=== PATIENT | female | born 1950 | race Caucasian/White ===

== ENCOUNTER 2022-05-12 12:30 | Outpatient (RCR) | payer MEDICARE, SELFPAY ==
--- NOTE | 2022-05-09 13:30 | PTOPEVAL ---
PHYSICAL THERAPY EVALUATION AND PLAN OF CARE 05-09-22 Thank you for referring Micki Bean to [facility] for the diagnosis of back pain. Leelee is scheduled to be seen for therapy? 0-2 x/week for 5 weeks. She is having L THR next week, so therapy will be on hold after surgery, until the surgeon releases her to return to therapy. Please review, sign, date and return this plan of care VIOLA. I agree with and certify that the following plan of care is medically necessary. Referring Physician Date Attending Provider: Ernie Garcia MD Past Medical History Source of Past Medical History Patient Neurological History Hx Neurological Disorders No Significant History Cardiovascular History Hx Hypertension Yes: meds Respiratory History Hx Chronic Obstructive Pulmonary Disease Yes: inhaler (COPD) Gastrointestinal History Hx Gastrointestinal Disorders No Significant History Genitourinary History Hx Genitourinary Disorders No Significant History Musculoskeletal History Hx Back Pain Yes Hx Orthopedic Surgery Yes: R THR Hx Other Musculoskeletal Disorders Yes: to have L THR next week Endocrine History Hx Endocrine Disorders No Significant History Reproductive History Hx Section Yes: x 5 Evaluation Information Diagnosis back pain Onset 2009 Subjective Information gradual increase in pain in Query Text:As Reported By Patient/ back, history of about 20 yr Family of back pain; have had injections in back; have had multiple MRIs; have had surgical consult, was not a surgical candidate; have been through pain management; previously had PT treatment, nothing really helped, but has never had water exercises; is to have L THR next week; Diagnostic Tests MRI For This Problem Yes: arthritis, curvature, protruding disc per pt Prior Level of Function Home Setting Living Situation With Spouse Mobility Assistive Devices (Used Last 3 None,Cane Months) Comments Additional Prior Level of Function difficulty with lifting at Comments home and tying shoes- due to hip pain L; is indep with bathing, dressing, home tasks, except heavy lifting; is doing HEP for legs- supine, standing from pre op for THR; Pain Assessment Pain Scale Pain Scale Used Numeric (1 - 10) Self Report Pain Assessment Bilateral Back Reporte
== END 2022-08-03 13:35 | disposition home or self-care (01) ==
LOC: ANHPT 12:30
DX: M54.16 Radiculopathy, lumbar region (principal)
CPT/HCPCS: 97113; 97162

== ENCOUNTER → 2022-06-16 11:34 | Outpatient (CLI) | payer MEDICARE, SELFPAY ==
--- NOTE | ~2022-06-16 | MM_ITS ---
EXAMINATION: MM screening aamir BI w harry HISTORY: Screening TECHNIQUE: Craniocaudal and mediolateral oblique 3-D tomosynthesis images were obtained and synthetic 2-D images were generated. CAD analysis was submitted and interpreted. COMPARISON: No prior mammogram is available for comparison at this institution. BREAST PARENCHYMAL COMPOSITION: Breast composed of scattered areas of fibroglandular density FINDINGS: There are small bilateral nodules which are low density in the upper outer quadrant of the right breast and upper central aspect of the left breast. There are no suspicious calcifications or a rchitectural distortion. IMPRESSION: 1. Small bilateral low-density masses. 2. Recommend comparison to previous outside mammograms. BI-RADS Category 0: Incomplete: Needs additional imaging evaluation. Reviewed, dictated and finalized at location A.
== END ==
PROVIDERS: PCP Obstetrics & Gynecology; Visit Provider Obstetrics & Gynecology
DX: Z12.31 Encounter for screening mammogram for malignant neoplasm of breast (principal); R92.8 Other abnormal and inconclusive findings on diagnostic imaging of breast
CPT/HCPCS: 77063; 77067

== ENCOUNTER 2023-04-04 16:27 | Emergency (ER) | payer MEDICARE, SELFPAY ==
[2023-04-04 16:29] VITALS: BP 102/80; PULSE 74; RESP 18; TEMP 36.2; O2SAT 97
--- NOTE | 2023-04-04 16:37 | ED.LOWEXIN ---
HPI - Extremity Injury (Lower) General Chief Complaint: Extremity Problem,Nontraumatic Stated Complaint: TOE PAIN Time Seen by Provider: 04/04/23 16:40 Source: patient Mode of arrival: ambulatory Limitations: no limitations History of Present Illness HPI Narrative: 73 y/o female presented for c/o right 2nd toe pain for 6 days. Denies injury, redness, or swelling. Pain started about 4 days after attending a wedding and wearing wedge heeled shoes for several hours and dancing. Taking ibuprofen 800mg BID for the pain, she usually takes it daily for chronic back pain. Denies numbness, tingling or weakness. Pain is worse when walking, rates 6/10, minimal pain at rest or with touching the toe. Related Data Home Medications Medication Instructions Recorded Confirmed albuterol sulfate 90 mcg/actuation 2 inh inhalation DIRECTED 04/04/23 04/04/23 aerosol inhaler atorvastatin 40 mg tablet 40 mg PO DIRECTED 04/04/23 04/04/23 estradiol 0.025 mg/24 hr weekly 1 patch topical WEEKLY 04/04/23 04/04/23 transdermal patch fluticasone 250 mcg-salmeterol 50 1 inh inhalation BID 04/04/23 04/04/23 mcg/dose blistr powdr for inhalation (Wixela Inhub) ibuprofen 800 mg tablet 800 mg PO TID 04/04/23 04/04/23 irbesartan 150 1 tablet PO DAILY 04/04/23 04/04/23 mg-hydrochlorothiazide 12.5 mg tablet latanoprost 0.005 % eye drops 1 drp EACH EYE HS 04/04/23 04/04/23 Allergies Allergy/AdvReac Type Severity Reaction Status Date / Time No Known Allergies Allergy Verified 04/04/23 16:41 Review of Systems Review of Systems: CONSTITUTIONAL: Denies body aches, fever, chills ENT: Denies rhinorrhea, congestion CARDIOVASCULAR: Denies chest pain, palpitations, or edema. RESPIRATORY: Denies cough or dyspnea. SKIN: Denies rash, itching, or wounds. MUSCULOSKELETAL: per HPI. NEUROLOGIC: Denies headache, numbness, tingling, or weakness. All systems reviewed & are unremarkable except as noted in HPI and below PMFSH Past Medical History Medical History (Updated 04/04/23 @ 16:54 by Azalea Nicole, LAURA) Chronic back pain COPD (chronic obstructive pulmonary disease) Hypertension Comments At time of signature, I have reviewed and agree with nursing past medical, surgical, social and family history unless otherwise noted. Please see nursing chart for further information. There is no relevant family history pertinent to the presenting complaint Exam Narrative: GENERAL: Well-appearing, well-nourished, and in no acute distress. HEAD: Normocephalic, atraumatic. EYES: PERRLA, conjunctivae clear NECK: Supple. CHEST: Speaks in full sentences. No respiratory distress. HEART: Regular rate and rhythm. Normal and equal peripheral pulses. EXTREMITIES: Right foot has normal strength and sensation, normal range of motion. Pain illicted to base of 2nd toe proximal phalanx with walking, mild pain with palpation of the prox phalanx. No swelling, erythema, or ecchymosis, No open wounds. Mild medial deformity to 2nd toe which appears chronic; No DIP/PIP tenderness. Pulse palpable and equal bilaterally, skin warm, dry, pink. Capillary refill less than 3 seconds. SKIN: Warm, dry, no rash. NEURO: Alert and oriented x3. PSYCH: Normal mood and affect Course Course Emergency Course: Patient is aware of diagnosis, understands and agrees to treatment plan. Anticipatory guidance given. Patient agrees to follow-up as directed and is aware of reasons to seek care at the emergency department. Portions of this record may have been created with voice recognition software Level of Care: Express Care Visit Vital Signs Vital signs: Vital Signs Temperature 97.2 F L 04/04/23 16:29 Pulse Rate 74 04/04/23 16:29 Respiratory Rate 18 04/04/23 16:29 Blood Pressure 102/80 04/04/23 16:29 Pulse Oximetry 97 04/04/23 16:29 Oxygen Delivery Room Air 04/04/23 16:29 Temperature 97.2 F L 04/04/23 16:29 Pulse Rate 74 04/04/23 16
== END 2023-04-04 17:06 | disposition home or self-care (01) ==
PROVIDERS: Emergency Provider Nurse Practitioner Family
DX: M79.674 Pain in right toe(s) (principal); J44.9 Chronic obstructive pulmonary disease, unspecified; I10 Essential (primary) hypertension
CPT/HCPCS: 99212; G0463

== ENCOUNTER 2023-09-06 14:23 | Emergency (ER) | payer MEDICARE, SELFPAY ==
--- NOTE | 2023-09-06 14:25 | ED.GENADULT ---
HPI - General Adult General Chief complaint: Abdominal Pain Stated complaint: LOW ABD PAIN Time Seen by Provider: 09/06/23 14:34 Source: patient, RN notes reviewed and old records reviewed Mode of arrival: ambulatory Limitations: no limitations History of Present Illness HPI narrative: 73-year-old female presents to the [facility] with complaints of lower abdominal pain that started yesterday. 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 Patient reports he thought the pain was from constipation but pain has not changed since having her bowel movement. Denies any urinary symptoms. No frequency, urgency or burning of urination. Denies fevers Surgical history includes hysterectomy, 5 C sections. Onset (ago): day(s) (1) Treatments prior to arrival: other (Suppository) Related Data Home Medications Medication Instructions Recorded Confirmed albuterol sulfate 90 mcg/actuation 2 inh inhalation DIRECTED 04/04/23 09/06/23 aerosol inhaler atorvastatin 40 mg tablet 40 mg PO DIRECTED 04/04/23 09/06/23 estradiol 0.025 mg/24 hr weekly 1 patch topical WEEKLY 04/04/23 09/06/23 transdermal patch fluticasone 250 mcg-salmeterol 50 1 inh inhalation BID 04/04/23 09/06/23 mcg/dose blistr powdr for inhalation (Wixela Inhub) ibuprofen 800 mg tablet 800 mg PO TID 04/04/23 09/06/23 irbesartan 150 1 tablet PO DAILY 04/04/23 09/06/23 mg-hydrochlorothiazide 12.5 mg tablet latanoprost 0.005 % eye drops 1 drp EACH EYE HS 04/04/23 09/06/23 Allergies Allergy/AdvReac Type Severity Reaction Status Date / Time No Known Allergies Allergy Verified 09/06/23 14:29 Review of Systems Review of Systems: All systems reviewed & are unremarkable except as noted in HPI and below Constitutional: Constitutional: Reports no additional constitutional complaints Eyes: Eyes: Reports no additional eye complaints ENT: Reports system reviewed and no additional complaints, except as documented Cardiovascular: Cardiovascular: Reports no additional cardiovascular complaints, Denies chest pain and Denies dyspnea Respiratory: Respiratory: Reports no additional respiratory complaints, Denies chest congestion, Denies cough and Denies dyspnea Gastrointestinal: Gastrointestinal: Reports as per HPI, Reports abdominal pain, Denies diarrhea, Reports nausea and Denies vomiting Musculoskeletal: Musculoskeletal: Reports no additional musculoskeletal complaints Integumentary/Breasts: Skin/Breast: Reports system reviewed and no additional complaints, except as docu Neurologic: Reports system reviewed and no additional complaints, except as documented Psychiatric: Psychiatric: Reports no additional psychiatric complaints Allergic/Immunologic: Allergic/Immunologic: Reports no additional allergic/immunologic complaints PMFSH Past Medical History Medical History (Updated 09/06/23 @ 16:57 by Aggie Murillo APRN) Chronic back pain COPD (chronic obstructive pulmonary disease) Hypertension Surgical History Surgical History (Updated 09/06/23 @ 14:43 by Aggie Murillo APRN) H/O total hysterectomy History of Social History Social History (Updated 09/06/23 @ 14:43 by Aggie Murillo APRN) Gender identity (if verbalized by the patient): Female Comments At the time of my signature, I reviewed and agree with the nursing past medical, surgical, social, and family history. There is no relevant family history pertinent to the patient complaint. Exam Const: General: cooperative, healthy appearing, no acute distress, well developed, alert, uncomfortable and well nourished Nutritional Appearance: well nourished Orientation/consciousness: patient oriented x3 Limitations: no limitations HENMT: Head: normal to inspection Ears: hearing grossly normal bilaterally and external ears normal Face/Nose/Sinus: Normal external nose present, Normal nares present, Normal nasal mucous membranes and turbina
[2023-09-06 14:39] VITALS: BP 110/81; PULSE 72; RESP 16; TEMP 36.8; O2SAT 100
== END 2023-09-06 14:49 | disposition short-term general hospital (02) ==
PROVIDERS: Emergency Provider Nurse Practitioner
DX: R10.30 Lower abdominal pain, unspecified (principal); J44.9 Chronic obstructive pulmonary disease, unspecified; I10 Essential (primary) hypertension
CPT/HCPCS: 81003; 99213; G0463

== ENCOUNTER 2023-09-06 15:14 | Emergency (ER) | payer MEDICARE, SELFPAY ==
[2023-09-06] VITALS (7 sets, daily range): BP systolic 109–138; BP diastolic 81–96; PULSE 63–79; RESP 11–18; TEMP 36.2; O2SAT 84–99
--- NOTE | ~2023-09-06 | CT_ITS ---
EXAMINATION: CT abdomen pelvis w con DATE: 09/06/2023 17:42 INDICATION: Lower abdominal pain for 2 days. TECHNIQUE: Computed tomography (CT) of the abdomen and pelvis was performed with 100 cc Omnipaque 350 intravenous contrast. The dose-length product was 573.42 mGy-cm. Automated exposure control and iter ative reconstruction technique were employed. COMPARISON: None. FINDINGS: Lung bases are unremarkable. Heart size normal. No significant pleural or pericardial effus ion. No significant vascular abnormality. No lymphadenopathy. There is a 2 cm exophytic left renal ma ss containing macroscopic fat, consistent with angiomyolipoma. There is a complex heterogeneously enh ancing 2.3 x 1.5 x 1.8 cm pancreatic tail mass. There is a large liver cyst, right hepatic lobe. Gall bladder is present. The spleen, adrenal glands and right kidney are unremarkable. There are small low -density lesions in the left kidney, most likely benign cysts. Nonobstructive bowel gas pattern. Ther e is colonic diverticulosis with mild pericolonic fatty infiltration and fluid surrounding the sigmoi d colon, consistent with acute diverticulitis. No evidence for perforation or abscess. Small fat-cont aining umbilical hernia. Evaluation of the pelvis limited by streak artifact from hip arthroplasties. IMPRESSION: 1. Mild uncomplicated sigmoid diverticulitis. 2: Complex hypovascular 2.3 cm pancreatic tail mass. The differential diagnosis includes pseudocyst, pancreatic adenocarcinoma, intraductal papillary mucinous neoplasm (IPMN), mucinous cystic neoplasm ( MCN), and the less common serous cystadenoma and neuroendocrine tumor. Reviewed, dictated and finalized at location A. IMPRESSION: 1. Mild uncomplicated sigmoid diverticulitis. 2: Complex hypovascular 2.3 cm pancreatic tail mass. The differential diagnosis includes pseudocyst, pancreatic adenocarcinoma, intraductal papillary mucinous neoplasm (IPMN), mucinous cystic neoplasm (MCN), and the less common serous cy stadenoma and neuroendocrine tumor.
[2023-09-06 15:57] LABS: Basophils Absolute Auto 0.1 K/mm3 (0.0-0.1); Basophils Percent Auto 0.5 % (0.2-1.2); Eosinophils Absolute Auto 0.1 K/mm3 (0-0.3); Eosinophils Percent Auto 0.7 % (0-4.4); Hematocrit 42.1 % (37.0-47.0); Hemoglobin 13.7 g/dL (12.0-15.0); Immature Granulocyte Absolute 0.04 K/mm3 (0.00-0.031); Immature Granulocyte Percent A 0.3 % (0-0.5); Lymphocytes Absolute Auto 2.37 K/mm3 (0.9-3.2); Lymphocytes Percent Auto 20.4 % (18.3-44.2); Mean Corpuscular HGB Conc 32.5 g/dl (32-36); Mean Corpuscular Hemoglobin 30.8 pg (26-34); Mean Corpuscular Volume 94.6 fl (80-100); Mean Platelet Volume 9.3 fl (7.4-10.4); Monocytes Absolute Auto 0.8 K/mm3 (0.1-0.6); Monocytes Percent Auto 7.2 % (2.6-8.5); Neutrophils Absolute Auto 8.2 K/mm3 (1.3-6.7); Neutrophils Percent Auto 70.9 % (45.5-73.1); Platelet Count Result 327 k/mm3 (150-375); Red Blood Count 4.45 M/mm3 (4.2-5.4); Red Cell Distribution Width 13.1 % (11.5-14.5); White Blood Count 11.6 K/mm3 (4.5-10.0)
[2023-09-06 16:07] LABS: Alanine Aminotransferase 35 U/L (6-35); Albumin Level 4.3 g/dL (3.5-5.1); Alkaline Phosphatase 97 U/L (38-126); Anion Gap 9 mmol/L (8-16); Aspartate Amino Transferase 35 U/L (14-36); Bilirubin,Total 0.8 mg/dL (0.2-1.3); Blood Urea Nitrogen 13 mg/dL (7-17); Calcium 10.5 mg/dL (8.4-10.2); Carbon Dioxide 24 mmol/L (22-30); Chloride 100 mmol/L (98-107); Estimated Glomerular Filt Rate > 60; Glucose 94 mg/dL (65-110); Lipase 190 U/L (23-300); Sodium 133 mmol/L (137-145)
[2023-09-06 16:35] LABS: Appearance Urine Clear (Clear); Bilirubin Urine Negative (Negative); Blood Urine Negative (Negative); Color Urine Yellow (Yellow); Glucose Urine UA Negative (Negative); Ketones Urine Negative (Negative); Leukocyte Esterase Ur Negative LEU/UL (Negative); Nitrate Urine Negative (Negative); Protein Urine Negative (Negative); Specific Grav Ur 1.007 (1.001-1.035); Urobilinogen Urine 0.2 mg/dL (<2.0); pH Urine 6.5 (5.0-9.0)
[2023-09-06 16:45] LABS: Add Urine Microscopic? NO
--- NOTE | 2023-09-06 17:32 | ED.ABDPAIN ---
HPI - Abdominal Pain General Chief Complaint: Abdominal Pain Stated Complaint: abd pain Time Seen by Provider: 09/06/23 17:03 Source: patient Mode of arrival: ambulatory Limitations: no limitations History of Present Illness HPI narrative: 73-year-old female presents today with complaints of lower abdominal pain that started yesterday. She rates her pain right now is a 7 out of 10 and describes it as sharp. It is constant and does not radiate anywhere. Denies any burning on urination or more frequent urination. Does endorse some nausea. She has a history of high blood pressure. She did take a suppository today to have a bowel movement due to feeling like she was constipated. States she did have a small bowel movement but it was hard and different than normal. Denies any fevers, body aches, chills, recent sick contacts, just wants to feel better. Denies any black or dark tarry stools. Denies rectal bleeding. Related Data Home Medications Medication Instructions Recorded Confirmed albuterol sulfate 90 mcg/actuation 2 inh inhalation DIRECTED 04/04/23 09/06/23 aerosol inhaler atorvastatin 40 mg tablet 40 mg PO DIRECTED 04/04/23 09/06/23 estradiol 0.025 mg/24 hr weekly 1 patch topical WEEKLY 04/04/23 09/06/23 transdermal patch fluticasone 250 mcg-salmeterol 50 1 inh inhalation BID 04/04/23 09/06/23 mcg/dose blistr powdr for inhalation (Wixela Inhub) ibuprofen 800 mg tablet 800 mg PO TID 04/04/23 09/06/23 irbesartan 150 1 tablet PO DAILY 04/04/23 09/06/23 mg-hydrochlorothiazide 12.5 mg tablet latanoprost 0.005 % eye drops 1 drp EACH EYE HS 04/04/23 09/06/23 Allergies Allergy/AdvReac Type Severity Reaction Status Date / Time No Known Allergies Allergy Verified 09/06/23 14:29 Review of Systems Review of Systems: All systems reviewed & are unremarkable except as noted in HPI and below PMFSH Past Medical History Medical History Chronic back pain COPD (chronic obstructive pulmonary disease) Hypertension Surgical History Surgical History H/O total hysterectomy History of Social History Social History Gender identity (if verbalized by the patient): Female Exam Const: General: cooperative, healthy appearing, comfortable, no acute distress and well developed Orientation/consciousness: patient oriented x3 HENMT: Head: normal to inspection Eyes: General: appearance normal, both eyes and all related structures Resp: Effort & Inspection: normal respiratory effort and able to speak in complete sentences Auscultation: clear to auscultation bilaterally Cardio: Rate: regular rate Rhythm: regular rhythm Heart sounds: S1 normal heart sound present and S2 normal heart sound present GI: GI Palp: Yes Soft to palpation and Yes Tenderness to palpation present (GI) (Lower abdomen) Neuro: General: patient oriented x3 Course Vital Signs Vital signs: Vital Signs Temperature 97.2 F L 09/06/23 15:45 Pulse Rate 79 09/06/23 15:45 Respiratory Rate 18 09/06/23 15:45 Blood Pressure 109/90 09/06/23 15:45 Pulse Oximetry 99 09/06/23 15:45 Oxygen Delivery Room Air 09/06/23 15:45 Temperature 97.2 F L 09/06/23 15:45 Pulse Rate 78 09/06/23 19:50 Respiratory Rate 15 09/06/23 19:50 Blood Pressure 138/92 H 09/06/23 19:50 Pulse Oximetry 98 09/06/23 19:50 Oxygen Delivery Room Air 09/06/23 15:45 MDM - Abdominal Pain MDM Narrative Medical decision making narrative: 73-year-old family HPI as noted. Differential as below. Work-up to include CBC, CMP, lipase, UA, CT of the abdomen with contrast. WBCs 11.6 hemoglobin 13.7 no concerning findings on the CMP urine without signs of infection. CT does show mild uncomplicated sigmoid diverticulitis. Also seen was a complex hypovascular 2.3 cm nicholson
[2023-09-06] MEDS: SODIUM CHLORIDE 0.9% IV 500 ML 999 ML IV CONT (17:48)
[2023-09-06] MEDS: HYDROcodone/acetaminophen (*CRX) 5-325 MG TABLET 1 TAB PO (19:15)
[2023-09-06] MEDS: metroNIDAZOLE 250 MG TABLET 500 MG PO (19:15)
[2023-09-06] MEDS: CIPROFLOXACIN 500 MG TAB PO (19:15)
== END 2023-09-06 19:50 | disposition home or self-care (01) ==
PROVIDERS: Emergency Medicine; Emergency Provider Nurse Practitioner Family
DX: K57.32 Diverticulitis of large intestine without perforation or abscess without bleeding (principal); I10 Essential (primary) hypertension; J44.9 Chronic obstructive pulmonary disease, unspecified; Z90.710 Acquired absence of both cervix and uterus; K86.89 Other specified diseases of pancreas
CPT/HCPCS: 36415; 74177; 80053; 81003; 83690; 85025; 96360; 99284; A9270; J7040; Q9967

== ENCOUNTER 2023-11-21 15:05 | Outpatient (CLI) | payer MEDICARE, SELFPAY ==
--- NOTE | ~2023-11-21 | MM_ITS ---
EXAMINATION: MM screening aamir BI w harry HISTORY: Screening mammogram TECHNIQUE: Craniocaudal and mediolateral oblique 3-D tomosynthesis images were obtained and synthetic 2-D images were generated. CAD analysis was submitted and interpreted. COMPARISON: 06/16/2022, 08/15/2019 bilateral screening mammogram examinations BREAST PARENCHYMAL COMPOSITION: There are scattered areas of fibroglandular density. FINDINGS: There is no evidence of suspicious mass, calcification, or architectural distortion to sugg est malignancy in either breast. There has been no suspicious interval change. IMPRESSION: 1. No mammographic evidence of malignancy. 2. Recommend routine screening mammography in one year. BI-RADS Category 1: Negative Reviewed, dictated and finalized at location A. 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
== END 2023-11-21 15:06 | disposition home or self-care (01) ==
LOC: ANHIMG 15:10
PROVIDERS: Visit Provider Obstetrics & Gynecology
DX: Z12.31 Encounter for screening mammogram for malignant neoplasm of breast (principal)
CPT/HCPCS: 77063; 77067

== ENCOUNTER 2024-04-07 09:10 | Outpatient (CLI) | payer MEDICARE, SELFPAY ==
--- NOTE | ~2024-04-07 | CT_ITS ---
CT of the Abdomen and Pelvis: Indication: Pelvic pain Technique: 2.5 mm axial scans were obtained through the abdomen and pelvis following intravenous adm inistration of 100 cc of Omnipaque 350. Dose reduction technique was used on this scan by utilizing a utomated exposure control and iterative reconstruction technique. The dose-length product (DLP) was 5 93.71 mGy-cm. COMPARISON: 09/06/2023 Findings: Scans through the lung bases are unremarkable. Simple hepatic cyst present. The spleen, gallbladder, adrenals and right kidney are within normal amado its. Stable 2.2 cm hypodense mass at the tail of pancreas, with a somewhat multiloculated appearance and peripheral calcification, most compatible with serous cystadenoma. Stable left lower pole renal a ngiomyolipoma present. There are atherosclerotic calcifications of the aorta. . No lymphadenopathy. No bowel obstruction or bowel wall thickening. There is no evidence to suggest acute appendicitis. Images through the pelvis are degraded by streak artifact from bilateral hip arthroplasty. No definit e pelvic mass seen. Urinary bladder grossly unremarkable. No ascites. There is advanced degenerative spondylosis of the lower lumbar spine. Impression: No acute abnormality. Stable hypodense pancreatic tail mass, suggestive of serous cystadenoma, though somewhat indeterminat e overall. Stable left lower pole renal angiomyolipoma. Reviewed, dictated and finalized at [facility]. Impression: No acute abnormality. Stable hypodense pancreatic tail mass, suggestive of serous cystadenoma, though somewhat indeterminate overall. Stable left lower pole renal angiomyolipoma.
[2024-04-07 09:41] LABS: Estimated Glomerular Filt Rate > 60
== END 2024-04-07 09:11 ==
PROVIDERS: Visit Provider Nurse Practitioner Obstetrics & Gynecology
DX: R10.2 Pelvic and perineal pain (principal)
CPT/HCPCS: 74177; Q9967

== ENCOUNTER 2024-07-15 14:37 | Outpatient (CLI) | payer MEDICARE, SELFPAY ==
[2024-07-16 08:42] LABS: MRSA (PCR) DETECTED (NOT DETECTE)
== END 2024-07-15 14:38 | disposition home or self-care (01) ==
PROVIDERS: PCP Nurse Practitioner
DX: M54.16 Radiculopathy, lumbar region (principal)
CPT/HCPCS: 87641

== ENCOUNTER 2024-08-07 14:30 | Outpatient (RCR) | payer MEDICARE, SELFPAY ==
--- NOTE | 2024-06-25 17:56 | PTOPEVAL1 ---
Assessment and note entered by Olga Stoddard, PT Evaluation Information Assessment Status Evaluation Diagnosis Lumbar Spondylosis M47.816 Subjective Information Pt c/o B hip pain L > R, increased back pain that started over 20 years ago, has been worsening with age. Travelling is restricted due to pain with prolonged sitting. Moving around or changing positions and ibuprofen helps to relieve pain. Cant get comfortable at night due to increase in pain with static position. Reports discomfort with long distance walking as she tends to shuffle after a while of ambulation. Reports recent pain to groin area but has been having burning sensation to lateral L thigh from a history of nerve damage post L THR. Has had therapy at a different facility for the same condition of back pain, discharged 3 weeks ago, she wants to try aquatic therapy this time. Her personal goal is to improve sitting tolerance upto > an hour, standing and ambulation without pain and discomfort. Reported Pain Level Pain Score 6: Self Report Assessment PT Clinical Summary Pt is a 74yo female patient who presents to therapy with c/o aching pain mainly to the back, L hip. Demos weakness to BLEs, antalgic gait pattern with decreased stance time on LLE, decreased ROM, significant compensatory pattern with postural deficits, decreased sitting, standing and ambulation tolerance. She does not use AD. Skilled PT with both aquatic and land exercises is indicated to address impairments, and improve quality of life. Plan of Care Interventions Aquatic Therapy,Electrical Stimulation,Gait Training,Hot Pack/Cold Pack,Manual Therapy,Neuro Re-education,Patient/Caregiver Education,Therapeutic Activities,Therapeutic Exercise,Ultrasound Other Interventions IASTM, Taping, Dry needling PT Services Indicated Yes Treatment Frequency and 2x/wk x 10 visits Duration These treatments will address the objective and functional deficits as defined above. The patient will be advanced safely and appropriately in order for the patient to progress towards his/her prior level of function. Additional exercises will be introduced and as well as a comprehensive home exercise program upon discharge, if needed, ?to ensure carryover of functional gains achieved in the clinic. This treatment plan has been reviewed and agreement upon by the patient.
--- NOTE | 2024-07-08 09:36 | PCPTNOTE ---
Pt did not show for 07/07/24 appt because she forgot about appt. Pt was reminded of next appt day and time.
--- NOTE | 2024-08-07 15:20 | PTOPDC ---
Assessment and note entered by Génesis Yanez, PT Discharge Report Assessment Status Discharge Diagnosis Lumbar Spondylosis M47.816 Subjective Information therapy has not really made any difference with my pain; sitting is the worst on her back; need to find a local pain management dr in the area, had previous injections and they helped; Reported Pain Level Pain Score Self Report Additional Pain Score Comments pain range in the past week 2-10/10; sacrum, into R and L; no radicular pain into legs decrease ibuprofen- slight relief; change positions, walking increase pain: sit tolerance few minutes sleeping is disrupted due to pain ~ 10 x/ night awaken due to pain have L lateral thigh pain from THR Assessment PT Clinical Summary Leelee has received 8 PT sessions-- land and aquatic exercises. Compared to the initial evaluation: pain from 6- 10/10 to 2-10/10; self assessment Oswestry rating from 40 to 36% limitation in activity level; pain is centralized at sacral area; supine R and L hip motions or hamstring stretch- do not increase pain; Aquatic exercises, Electrical stim and heat decrease her pain. The goals were partially met. Discharge PT services. Plan of Care PT Services Indicated No
== END 2024-08-07 16:28 | disposition home or self-care (01) ==
LOC: ANHPT 14:30
PROVIDERS: PCP Nurse Practitioner; Visit Provider Orthopaedic Surgery
DX: M47.816 Spondylosis without myelopathy or radiculopathy, lumbar region (principal)
CPT/HCPCS: 97014; 97110; 97113; 97161; 97530; G0283

== ENCOUNTER 2024-12-31 10:27 | Outpatient (CLI) | payer MEDICARE, SELFPAY ==
--- NOTE | ~2024-12-31 | CT_ITS ---
EXAMINATION: CT abdomen pelvis wo con DATE: 12/31/2024 10:47 INDICATION: Dorsalgia, unspecified. TECHNIQUE: Computed tomography (CT) of the abdomen and pelvis was performed without intravenous contr ast. Automated exposure control and iterative reconstruction technique were employed. The dose-length product was 479.33 mGy-cm. COMPARISON: CT abdomen and pelvis 04/07/2024, 09/06/2023 FINDINGS: The visualized portions of the lung bases demonstrate mild atelectasis. No pleural effusion . The heart size is normal. No pericardial effusion. There is a 3.0 cm cyst in the liver. The gallbla dder and spleen are normal. There is a 2.1 cm cystic mass with septations and peripheral calcificatio ns in the tail of the pancreas. The pancreatic duct is normal in caliber. The adrenal glands and kidn eys are normal. There is diverticulosis of the colon without evidence of diverticulitis. There is a l arge volume of stool in the colon. The appendix is normal. There are no pathologically enlarged lymph nodes. There is no free intraperitoneal fluid. There bilateral total hip arthroplasties. There is jef mbar levoscoliosis and severe spondylosis. IMPRESSION: 1. 2.1 cm cystic mass in the tail of the pancreas, stable from 09/06/2023. The differential diagnosis includes mucinous cystic neoplasm and serous cystadenoma with the calcification pattern favoring muc inous cystic neoplasm. Reviewed, dictated and finalized at location A. UNTING ASSISTANT IMPRESSION: 1. 2.1 cm cystic mass in the tail of the pancreas, stable from 09/06/2023. The differential diagnosis includes mucinous cystic neoplasm and serous cystadenoma with the calcification pattern favoring mucinous cystic neoplasm.
== END 2024-12-31 10:28 | disposition home or self-care (01) ==
LOC: GOSHIMG 10:27
PROVIDERS: PCP Clinical Nurse Specialist; Visit Provider Clinical Nurse Specialist
DX: K86.2 Cyst of pancreas (principal); M54.9 Dorsalgia, unspecified
CPT/HCPCS: 74176

== ENCOUNTER 2024-12-31 10:51 | Outpatient (CLI) | payer MEDICARE, SELFPAY ==
--- OUTSIDE RECORDS SUMMARY | 2024-12-31 12:31 | XMS_ITS | Clinical Summary ---
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 Gender Identity Female 05/01/2022 3:02 PM CDT Sexual Orientation Straight 05/01/2022 3: 02 PM CDT Plan of Treatment Health Maintenance Due Date Last Done Comments Colorectal Cancer Screening Colonoscopy (10 Years) 1950 Hepatitis C 02/10/1970 DTaP, Tdap and Td Vaccines ( 1 - Tdap) 02/10/1971 Mammogram Screening 1992 Zoster Vaccines (1 of 2) 02/10/2002 Dexa Scan (General) 02/10/2017 Pneumococcal Vaccine: 65+ Ye ars (1 of 1 - PCV) 02/10/2017 COVID-19 Vaccine ( - 2023-2 5 season) 2024 Influenza Adult (#1) 2024 RSV Immunization or 60+ Years (1 - 1-dose 75+ series) 02/10/2027 Meningococcal B Vaccine Aged Out No l onger eligible based on patient's age to complete this topic Meningococcal Vaccine Aged Out No nai laurie eligible based on patient's age to complete this topic RSV Immunizations Under 20 Months Aged Out No longer eligible based on patient's age to complete this topic
--- OUTSIDE RECORDS SUMMARY | 2024-12-31 12:31 | XMS_ITS | Referral Summary ---
Author Organization [facility] Address [address] [place] [address] Care Team Providers Care Welfare Eligibility Interviewer Name Role Phone No, Physician Primary Care Provider [phone] Allergies No known active allergies Medications venlafaxine XR (EFFEXOR-XR) 37.5 mg 24 hr capsule venlafaxine ER 37.5 mg capsule,extended release 24 hr TAKE 1 CAPSULE BY MOUTH EVERY DAY WITH FOOD Active ondansetron ODT (ZOFRAN-ODT) 4 mg disintegrating tablet DISSOLVE 1 TABLET ON THE TONGUE EVERY 6 HOURS NEEDED FOR NAUSEA OR VOMITING 08/20/20 22 Active Paxlovid, EUA, tablets,dose pack tablets in a dose pack (EUA) FOLLOW PACKAGE DIRECTIONS 08/20/20 22 Active metoprolol XL (TOPROL-XL) 50 mg extended release tablet Take 50 mg by mouth daily 06/12/20 22 Active ibuprofen (ADVIL,MOTRIN) 800 mg tablet Take 1 tablet (800 mg total) by mouth 3 (three) times a day 07/19/20 22 Active Wixela Inhub 250-50 mcg/dose diskus inhaler Inhale 1 puff 2 (two) times a day 06/27/20 22 Active albuterol HFA (PROVENTIL HFA,VENTOLIN HFA,PROAIR HFA) 90 mcg/actuation inhaler 2 puffs every 4 (four) hours as needed 07/24/20 22 Active aspirin 81 mg enteric coated tablet aspirin 81 mg tablet,delayed release TAKE 1 TABLET BY MOUTH TWICE DAILY Active atorvastatin (LIPITOR) 40 mg tablet atorvastatin 40 mg tablet TAKE 1 TABLET BY MOUTH DAILY Active irbesartan-hydroch lorothiazide (AVALIDE) 150-12.5 mg per tablet Take 1 tablet by mouth daily Active latanoprost (XALATAN) 0.005 % ophthalmic solution 1 drop nightly Activ e estradioL (CLIMARA) 0.025 mg/[address] 1 patch on the skin once a week 12 patch 4 06/26/20 Active Active Problems No known active problems Immunizations Name Administration Dates Next Due Influenza, Quadrivalent, Hig h Dose, Preservative Free, Intrr 08/16/2021 Influenza, Trivalent, IM (MDV) 09/05/2021 Social History Tobacco Use Types Packs/Day Years Used Date Smoking Tobacco: Unknown Tobacco Cessation:Counseling Given: Not Answered Personal Safety Answer Date Recorded Getting School Help Needed Not on file 11/28 Comments No Sex and Gender Information Value Date Recorded Sex Assigned at Not on file Legal Sex Female 12:35 PM CDT Gender Identity Not on file Sexual Orientation Not on file Last Filed Vital Signs Vital Sign Reading Time Taken Comments Blood Pressure 114/74 06/26/2024 10:13 AM CDT Pulse - - Temperature - - Respiratory Rate - - Oxygen Saturation - - Inhaled Oxygen Concentration - - Weight 53.5 kg (118 lb) 06/26/2024 10:13 AM CDT Height 147.3 cm (4' 10 ) 06/26/2024 10:13 AM CDT Body Mass Index 24.66 06/26/2024 10:13 AM CDT Plan of Treatment Not on file Insurance MEDICARE SOLUTIONS MEDICARE SOLUTIONS [facility] MEDICARE Care Teams Welfare Eligibility Interviewer Relationship Specialty Start Date End Date No, Physician PCP - General 06/26/24
--- OUTSIDE RECORDS SUMMARY | 2024-12-31 12:31 | XMS_ITS | Clinical Summary ---
Author Organization [facility] Address [address] [place] [address] Care Team Providers Care Emt Dispatcher Name Role Phone No, Physician Primary Care Provider [phone] Allergies No known active allergies Medications venlafaxine [...] Intrr 08/16/2021 Influenza, Trivalent, IM (MDV) 09/05/2021 Surgical History Surgery Date Site/Laterality Comments SECTION HIP SURGERY JOINT REPLACEMENT HYSTERECTOMY BSO 1999 Medical History Medical History Date Comments High blood pressure Asthma Family History Medical History Relation Name Comments Diabetes Father Heart disease Father Hypertension Father Arthritis Mother Diabetes Mother Heart disease Mother Hypertension Mother Alcohol abuse Son Relation Name Status Comments Father Mother Son Social History Tobacco Use Types Packs/Day Years Used Date Smoking Tobacco: Unknown Tobacco Cessation:Counseling Given: Not Answered Personal Safety Answer Date Recorded Getting School Help Needed Not on file 11/28 Comments No Sex and Gender Information Value Date Recorded Sex Assigned at Not on file Legal Sex Female 12:35 PM CDT Gender Identity Not on file Sexual Orientation Not on file Obstetrics History Para Term AB IAB SAB Ectopic Multiple Livin g Live Births 4 4 4 4 4 Date Outcome GA Total Labor Labor/2nd/3rd Weight Sex Type Anes PTL Florencia A1 A5 Name Clin 1970 Term F Vaginal Livin g Keegan ine 1976 Term M C-Secti on Livin g Colin 1984 Term F C-Secti on Livin g [place] 1985 Term M C-Secti on Livin g Nickol as Last Filed Vital Signs Vital Sign Reading [...] 06/26/2024 10:13 AM CDT Plan of Treatment Health Maintenance Due Date Last Done Comments Colon Cancer Screening-Colonoscopy 1950 Depression Screening 1950 Fall Risk Assessment 1950 Hepatitis C Screening 1950 Osteoporosis Screening-Bone Density Scan 1950 Pneumococcal vaccine 65+ (1 of 2 - PCV) 02/10/1958 DTaP/Tdap/Td Vaccine (1 - Tdap) 02/10/1963 Hepatitis B Screening 02/10/1970 Zoster Vaccine (1 of 2) 02/10/2002 Well Visit 65+ 02/10/2017 Covid-19 Vaccine (5 - 2023-2 5 season) 2024 04/26/2022, 08/21/2021, 01/25/2021, Additional history exists Influenza Vaccine (#1) 2024 09/05/2021, 2020 Breast Cancer Screening-Mammogram 11/21/2024 11/21/2023, 07/24/2022, 07/21/2022, Additional history exists Insurance MEDICARE SOLUTIONS [facility] MEDICARE Address: [facility] [address] [place] [address] MEDICARE SOLUTIONS [employer] [facility] MEDIC[facility] Address: [address] [place] [address] Care Teams Emt Dispatcher Relationship Specialty Start Date End Date No, Physician PCP - General 06/26/24
[2024-12-31 14:09] LABS: Basophils Absolute Auto 0.1 K/mm3 (0.0-0.1); Eosinophils Absolute Auto 0.2 K/mm3 (0-0.3); Eosinophils Percent Auto 2.9 % (0-4.4); Hematocrit 40.2 % (37.0-47.0); Hemoglobin 13.2 g/dL (12.0-15.0); Immature Granulocyte Absolute 0.01 K/mm3 (0.00-0.031); Immature Granulocyte Percent A 0.2 % (0-0.5); Lymphocytes Absolute Auto 2.26 K/mm3 (0.9-3.2); Lymphocytes Percent Auto 36.2 % (18.3-44.2); Mean Corpuscular HGB Conc 32.8 g/dl (32-36); Mean Corpuscular Hemoglobin 31.4 pg (26-34); Mean Corpuscular Volume 95.5 fl (80-100); Mean Platelet Volume 9.8 fl (7.4-10.4); Monocytes Absolute Auto 0.4 K/mm3 (0.1-0.6); Monocytes Percent Auto 5.8 % (2.6-8.5); Neutrophils Absolute Auto 3.4 K/mm3 (1.3-6.7); Neutrophils Percent Auto 53.9 % (45.5-73.1); Platelet Count Result 301 k/mm3 (150-375); Red Blood Count 4.21 M/mm3 (4.2-5.4); Red Cell Distribution Width 12.5 % (11.5-14.5); White Blood Count 6.3 K/mm3 (4.5-10.0)
[2024-12-31 14:26] LABS: Add Urine Microscopic? YES; Appearance Urine Cloudy (Clear); Bacteria Urine Rare /hpf; Bilirubin Urine Negative (Negative); Blood Urine Negative (Negative); Color Urine Yellow (Yellow); Glucose Urine UA Negative (Negative); Ketones Urine Negative (Negative); Leukocyte Esterase Ur Negative LEU/UL (Negative); Nitrate Urine Negative (Negative); Protein Urine Negative (Negative); RBC Urine 0-2 /hpf (0-2); Specific Grav Ur 1.014 (1.001-1.035); Squamous Epithelial Cell Urine Moderate /hpf (Few); Urobilinogen Urine 0.2 mg/dL (<2.0); WBC Urine 0-5 /hpf (0-3); pH Urine 6.5 (5.0-9.0)
[2024-12-31 16:30] LABS: Alanine Aminotransferase 36 U/L (6-35); Albumin Level 3.8 g/dL (3.5-5.1); Alkaline Phosphatase 84 U/L (38-126); Anion Gap 9 mmol/L (4-12); Aspartate Amino Transferase 43 U/L (14-36); Bilirubin,Total 0.8 mg/dL (0.2-1.3); Blood Urea Nitrogen 12 mg/dL (7-17); Calcium 11.6 mg/dL (8.4-10.2); Carbon Dioxide 25 mmol/L (22-30); Chloride 102 mmol/L (98-107); Cholesterol 131 mg/dL (0-200); Estimated Glomerular Filt Rate > 60; Glucose 78 mg/dL (65-110); HDL Direct 50 mg/dL; Potassium 4.6 mmol/L (3.4-5.0); Sodium 136 mmol/L (137-145); Triglycerides 121 mg/dL (<150)
[2024-12-31 16:31] LABS: Vitamin D 25 Hydroxy 32.3 ng/mL
[2024-12-31 16:41] LABS: LDL Cholesterol Direct 48 mg/dL
== END 2024-12-31 10:52 | disposition home or self-care (01) ==
LOC: ANHGOSHLAB 10:53
PROVIDERS: PCP Clinical Nurse Specialist; Visit Provider Clinical Nurse Specialist
DX: R39.9 Unspecified symptoms and signs involving the genitourinary system (principal); I10 Essential (primary) hypertension; J44.9 Chronic obstructive pulmonary disease, unspecified; E55.9 Vitamin D deficiency, unspecified; Z13.228 Encounter for screening for other metabolic disorders
CPT/HCPCS: 36415; 80053; 80061; 81001; 82306; 84443; 85025

== ENCOUNTER 2025-01-01 10:38 | Outpatient (CLI) | payer MEDICARE, SELFPAY ==
--- OUTSIDE RECORDS SUMMARY | 2025-01-01 10:56 | XMS_ITS | Referral Summary ---
Author Organization [facility] Address [address] [place] [address] Care Team Providers Care Machine Bobbin Winder Name Role Phone No, Physician Primary Care Provider [phone] Allergies No known active allergies Medications venlafaxine [...] on file Insurance MEDICARE SOLUTIONS MEDICARE SOLUTIONS [facility] MEDICARE Care Teams Machine Bobbin Winder Relationship Specialty Start Date End Date No, Physician PCP - General 06/26/24
--- OUTSIDE RECORDS SUMMARY | 2025-01-01 10:56 | XMS_ITS | Data Portability ---
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 Explained about different options for her. Meds as directed. Heat pack as directed prn. Advised to avoid any strenuous activities/lif ting-pushing. Educated pt about alarming symptoms to monitor at home and call us back or get checked in ED. Cont f/u with specialists at [facility] as per schedule. F/u in 1-2 months. Pt to bring copy of her MRI results. [email or web address] Not available 11/07/2023 15:55:25 Plan of Treatment Reminders Order Date Submit Date Provider Last Modified By Organization Details Last Modified Time Details Appointments None recorded. Lab None recorded. Referral None recorded. Procedures None recorded. Surgeries None recorded. Imaging None recorded. Medication Orders baclofen 10 mg tablet 2022 023 [facility] #59732, [address] [place], [place], [id number], 3 15:48:08 meloxicam 7.5 mg tablet 2022 023 [facility] #58067, [address] [place], [place], [id number], 3 15:48:11 lidocaine 5 % topical patch 2022 023 [facility] #32826, [address] [facility] [place], [id number], 3 15:48:09 irbesartan 150 mg-hydrochl orothiazide 12.5 mg tablet 2022 023 [facility] #30620, [address], [place], [place], [id number], 3 15:48:14 parox[facility] 10 mg tablet 2022 023 [facility], [address] [facility] [place], [place], [place], [id number], 3 15:48:09 fluticasone 250 mcg-salmete rol 50 mcg/dose blistr powdr for inhalation 2022 023 [facility], [address] [facility] [place], [place], [place], [id number], 3 15:48:12 albuterol sulfate HFA 90 mcg/actuati on aerosol inhaler 2022 023 [facility], [address] [facility] [place], [place], [place], [id number], 3 15:48:13 fluticasone propionate 50 mcg/actuati on nasal spray,suspe nsion 2022 023 [facility], [address] [facility] [place], [place], [place], [id number], 3 15:48:12 atorvastati n 40 mg tablet 2022 023 [facility], [address] [facility] [place], [place], [place], [id number], 3 15:48:13 Patient TargetsNo targets recorded. Patient InstructionsNo instructions recorded. Reason for Referral None Reported. Results Created Date Observation Date Name Description Value Unit Range Abnormal Flag Note LastModifiedBy Organization Detail LastModifiedTime 06/28/20 21 06/17/2021 XR, finge r(s) No observ ation record ed. [id number] Not Available 01/24/2023 23:29:17 07/19/20 21 07/19/2021 XR, hand, 3 or more view No observ ation record ed. [email or web address] [id number] [place] [address], [place], [address], 11/07/2023 15:35:26 Result Notes None recorded. Problems Name Problem SNOMED Code Status Onset Date Resolution Date Notes Provider Name and Address Organization Details Recorded Time Hypertensive disorder 04593295 Active 2022 Evelio Kinney MD [address], [place], [address], [employer] 3 15:38:46 Hyperlipidemia 80474919 Active 2022 Evelio Kinney MD [address], [place], [address], [employer] 3 15:39:32 Seasonal allergic rhinitis 689757254 Active 2022 Evelio Kinney MD [address], [place], [address], [employer] 3 15:40:48 Chronic obstructive pulmonary disease 41213568 Active 2022 Evelio Kinney MD [address], [place], [address], [employer] 3 15:41:24 Menopausal flushing 102906218 Active 2022 Evelio Kinney MD [address], [place], [address], [employer] 3 15:42:38 Chronic low back pain 645992064 Active 2022 Evelio Kinney MD [address] [facility], [place], [address], [facility] [employer] 15:43:44 Problem Notes None recorded. Procedures Surgical History Date Name Laterality Status Provider Name and Address Organization Details Recorded Time section completed Not Available [facility] 01/24/2023 23:27:44 total replacement of hip completed Not Available [facility] 01/24/2023 23:27:44 [facility]sterectomy completed Not Available [facility]/24/[facility]23 23:27:44 Imaging Results Imaging Date Name Status LastModified by Organiz ation Details LastModified Time 07/19/2021 XR, hand, 3 or more view completed [email or web address] [id number] [place] [address], [place], [address], 11/07/2023 15:35:26 06/17/2021 XR, finger(s) completed [id number] Information not available 01/24/2023 23:29:17 Procedure Notes None recorded. Medical Equipment None Reported. Medications Name Sig Start Date Stop Date Status Note LastModified by Organization Details LastModified Time latanoprost 0.005 % eye drops INSTILL 1 DROP IN BOTH EYES EVERY EVENING active Not Available Not Available No t Available atorvastati n 40 mg tablet TAKE 1 TABLET BY MOUTH EVERY DAY 2023 active Not Available Not Available Not Avai lable desonide 0.05 % topical cream APPLY TO FACIAL AFFECTED AREAS TWICE DAILY FOR NO MORE THAN 3 WEEKS 11/07 completed Not Available Not Available Not Available fluticasone 250 mcg-salmete rol 50 mcg/dose blistr powdr for inhalation Inhale 1 puff twice a day by inhalatio n route as directed for 90 days. 2022 active Not Available Not Available Not Avai lable prednisone 10 mg tablet 11/07 completed Not Available Not Available Not Available paroxetine 10 mg tablet TAKE 1 TABLET BY MOUTH EVERY DAY AT BEDTIME active Not Available Not Available No t Available ketoconazol e 2 % shampoo active Not Available Not Available Not Available irbesartan 150 mg-hydrochl orothiazide 12.5 mg tablet TAKE 1 TABLET BY MOUTH EVERY DAY IN THE MORNING 2023 active Not Available Not Available Not Avai lable ibuprofen 800 mg tablet TAKE 1 TABLET BY MOUTH THREE TIMES DAILY active Not Available Not Available No t Available fluconazole 150 mg tablet TAKE 1 TABLET BY MOUTH NOW. REPEAT IN 2 DAYS 11/07 completed Not Available Not Available Not Available metronidazo le 500 mg tablet TAKE 1 TABLET BY MOUTH TWICE DAILY UNTIL ALL TAKEN 11/07 completed Not Available Not Available Not Available ciprofloxac in 500 mg tablet TAKE 1 TABLET BY MOUTH TWICE DAILY UNTIL ALL TAKEN 11/07 completed Not Available Not Available Not Available sulfamethox azole 800 mg-trimetho prim 160 mg tablet TAKE 1 TABLET BY MOUTH TWICE DAILY FOR 14 DAYS DIRECTED 11/07 completed Not Available Not Available Not Available spironolact one 25 mg tablet TAKE 1 TABLET BY MOUTH DAILY 11/07 completed Not Available Not Available Not Available meloxicam 7.5 mg tablet TAKE 1 TABLET BY MOUTH EVERY 12 HOURS NEEDED active Not Available Not Available No t Available amoxicillin 875 mg tablet TAKE 1 TABLET BY MOUTH EVERY 12 HOURS FOR 10 DAYS 11/07 completed Not Available Not Available Not Available estradiol 0.025 mg/24 hr weekly transdermal patch APPLY 1 PATCH TOPICALLY TO THE SKIN 1 TIME A WEEK active Not Available Not Available No t Available baclofen 10 mg tablet TAKE 1 TABLET BY MOUTH EVERY 8 HOURS NEEDED active Not Available Not Available No t Available lisinopril 10 mg tablet TAKE ONE TABLET BY MOUTH DAILY 11/07 completed Not Available Not Available Not Available lidocaine 5 % topical patch Apply by topical route for 90 days. 2022 active Not Available Not Available Not Avai lable fluocinolon e 0.01 % topical solution WORK INTO FINGER TIPS AND APPLY TO EARS AND SCALP TWICE DAILY FOR UP TO 3 WEEKS active Not Available Not Available No t Available albuterol sulfate HFA 90 mcg/actuati on aerosol inhaler INHALE 2 PUFFS BY MOUTH EVERY 6 HOURS NEEDED active Not Available Not Available No t Available ketoconazol e 2 % topical cream APPLY TOPICALLY TO THE AFFECTED AREA OF FACE TWICE DAILY NEEDED FOR RASH active Not Available Not Available No t Available ondansetron 4 mg disintegrat ing tablet DISSOLVE 1 TO 2 TABLETS UNDER THE TONGUE EVERY 4 TO 8 HOURS NEEDED FOR NAUSEA OR VOMITING 11/07 completed Not Available Not Available Not Available fluticasone propionate 50 mcg/actuati on nasal spray,suspe nsion [place] 2 sprays every day by intranasa l route as needed for 90 days. 2022 active Not Available Not Available Not Avai lable estradiol 11/07 completed Not Available Not Available Not Available metoprolol succ 50 mg-hydrochl orothiazide 12.5 mg tablet,ext. rel 24 hr Take 1 tablet every day by oral route. 11/07 completed Not Available Not Available Not Available Vitals Date Recorded Body mass index (BMI) Body height Body height Pain severity - 0-10 verbal numeric rating [Score] - Reported Body weight Provider Name and Address Organization Details Last Updated DateTime 01/24/2023 28.8 kg/m2 147.32 cm 147.32 cm 0 98592.75 g Not Available [facility] 23:27:53 Date Recorded Body height Body mass index (BMI) Body weight Body temperature Heart rate Respiratory rate Oxygen saturation Oxygen saturation in Arterial blood by Pulse oximetry Systolic blood pressure Diastolic blood pressure Provider Name and Address Organization Details Last Updated DateTime 147.32 cm 25.3 kg/m2 12174.0 3 g 98.1 [degF] 88 /min 16 /min 99 % 99 % 122 mm[Hg] 62 mm[Hg] Sly [place] [employer] [facility] 15:29:48 Social History Question Answer Notes LastModified by Organizat ion Details LastModified Time Tobacco Smoking Status Never Smoker Not Available [facility] 01/24/2023 23:27:25 Do You Have An Advance Directive? Yes Information not available 11/07/2023 What Is Your Level Of Alcohol Consumption? Occasional [id number] Information not available 01/24/2023 Is Blood Transfusion Acceptable In An Emergency? Yes Information not available 11/07/2023 What Is Your Code Status? Full Code Information not available 11/07/2023 In The 14 Days Before Symptom Onset, Have You Had Close Contact With A Laboratory-confir med COVID-19 While That Case Was Ill? No Information not available 11/07/2023 In The 14 Days Before Symptom Onset, Have You Had Close Contact With A Person Who Is Under Investigation For COVID-19 While That Person Was Ill? No Information not available 11/07/2023 Are You Currently Employed? No Information not available 11/07/2023 What Type Of Diet Are You Following? REGULAR Information not available 11/07/2023 Have There Been Any Changes To Your Family Or Social Situation? No Information no t available 11/07/2023 Where Do You Live? SingleLevelHouse Information not available 11/07/2023 Do You Have A Medical Power Of Senior Account Director? Yes Information not available 11/07/2023 How Many Children Do You Have? 5 Information not available 11/07/2023 Do You Have Any Pets? Yes Information not available 11/07/2023 What Is Your Relationship Status? Information not available 11/07/2023 Do You Use Your Seat Belt Or Car Seat Routinely? Yes Information not available 11/07/2023 Are You Sexually Active? No Information not available 11/07/2023 Do You Participate In Social Media? Yes Information not available 11/07/2023 Do You Feel Stressed (tense, Restless, Nervous, Or Anxious, Or Unable To Sleep At Night)? [id number] Information not available 11/07/2023 Have You Recently Traveled Abroad? No Information not available 11/07/2023 Are You Currently In School? No Information not available 11/07/2023 Sex: Female Functional Status Question Answer Note LastModified by Organization D etails LastModified Time Are you able to care for yourself? Yes Information n ot available 11/07/2023 Mental Status None recorded. Family History Relationship Description Onset Age of this Age Resolved Age Notes LastModified by Organization Details LastModified Time Father No current problems or disability Not available 11/07 15:30:58 Mother No current problems or disability Not available 11/07 15:30:58 Notes:Paternal Parents had h eart disease. Medical History Condition Response BLINDNESS N RHEUMATIC FEVER N KIDNEY STONES N BLADDER PROBLEMS N MRSA N CARPAL TUNNEL SYNDROME N OTHER # 1 N POLIO N LUNG DISEASE/DISORDER N HISTORY OF DRUG ABUSE N COPD N RADIATION / CHEMOTHERAPY N Other # 2 N SPORTS INJURY N ANKLE PAIN N BLOOD DISEASES N SURGERY N EAR OR HEARING PROBLEMS N MUMPS N SCHIZOPHRENIA N SHINGLES N BOWEL PROBLEMS N SHOULDER PAIN N FEMALE PROBLEMS / INFECTIONS N DEPRESSION (INCLUDING POST ) N FAILED BACK SYNDROME N STROKE/TIA N THYROID DISEASE N ULCERS N KNEE PAIN N BENIGN PROSTATIC HYPERPLASIA N MEASLES N CERVICALGIA N TB SKIN TEST N HYPOTENSION N MYOCARDIAL INFARCTION N OBESITY N PARAPELGIA N GERD/NAUSEA N ANEURYSM N URINARY/BLADDER/KIDNEY PROBLEMS N CORONARY ARTERY DISEASE (CAD) N Do you have Advance directive? N MENIERE'S DISEASE N ADDICTION CONCERNS N ENDOMETRIOSIS N USE OF BLOOD THINNERS N SKIN PROBLEMS N EMPHYSEMA N GASTROINTESTINAL DISORDER N PERIPHERAL ARTERY DISEASE N MUSCLE,JOINT OR BONE PROBLEMS N DVT N STOMACH ULCERS N GASTROINTESTINAL BLEEDING N BLOOD CLOTS N ASTHMA N Abdominal Pain N CATARACTS N USE OF NSAIDS N CONCUSSION OR SPINAL TRAUMA N ARTERIAL INSUFFICIENCY N ERECTILE DYSFUNCTION N GI PROBLEMS N CHF N Low Testosterone N NEUROPATHY N INFERTILITY N AIDS/HIV N FRACTURES N CHEMOTHERAPY / RADIATION N VISION/EYE PROBLEMS N LIVER DISEASE N ELBOW PAIN N HYPERTENSION N TOURETTE'S N ANXIETY DISORDER N Metal allergy N BLOOD TRANSFUSION N ANEMIA/BLOOD DISORDER N CHRONIC EAR INFECTIONS N BIPOLAR DISORDER N BRONCHITIS N OSTEOARTHRITIS N TUBERCULOSIS N GLAUCOMA N FOOT PROBLEM N HEART VALVE DISORDERS N DIVERTICULITIS N SLEEP APNEA N CHICKENPOX N ALLERGIES/HAYFEVER N SOFT TISSUE INJURY N BACK INJECTIONS N INFECTIOUS DISEASE N HEART ARRHYTHMIA N PROSTATE N INSOMNIA N ESRD N RHEUMATOID ARTHRITIS N HIGH CHOLESTEROL / HYPERLIPIDEMIA N EYE PROBLEMS N HYPERTHYROIDISM N PVD N EATING DISORDER N EDEMA N CHRONIC PAIN SYNDROME N CAROTID BLOCKAGE N CONSTIPATION N BACK / NECK PROBLEMS N HAVE YOU BEEN HOSPITALIZED OR SEEN IN [facility] IN THE PAST YEAR ? N ATHEROSCLEROSIS N BURSITIS N BREAST PROBLEMS N HERNIATED DISC N DIALYSIS N POLYCYSTIC OVARIES N ECZEMA N FIBROMYALGIA N OSTEOPOROSIS N ARTHRITIS N NO SIGNIFICANT PAST MEDICAL HISTORY N PERIPHERAL NEUROPATHY N APPENDICITIS N DIABETES, TYPE N BAD TEETH N VON WILLIBRAND'S DISEASE N HEARTBURN / REFLUX N ADD/ADHD N AUTISM SPECTRUM DISORDER (ASD) N POST LAMINECTOMY SYNDROME N HEPATITIS / LIVER DISEASE N PULMONARY DISEASE N GOUT N SLEEP DISORDER N ALZHEIMER'S DISEASE N PAIN N HERPES N DEMENTIA N HEADACHES/MIGRAINES N SEIZURES/EPILEPSY N VASCULAR DISEASE N PACEMAKER N Blood Disorder N HIP PAIN N DIZZINESS N HEAD TRAUMA OR INJURY N HEART DISEASE/HEART PROBLEMS N KIDNEY DISEASE N DEVELOPMENTAL OR BEHAVIORAL DISORDERS N MULTIPLE SCLEROSIS N SCARLET FEVER N MENTAL DISORDER/ILLNESS N NEUROPSYCHOLOGICAL N CARDIAC ARRHYTHMIA N CANCER: SPECIFY N ANESTHESIA COMPLICATIONS N PNEUMONIA N ATRIAL FIBRILLATION N Gall Stones N PULMONARY EMBOLISM N AUTOIMMUNE DISEASE N Gynecological HistoryNo gynecological history recorded. Obstetrics History GPAL:G 5 P 0 0 0 0 Past Encounters Encounter ID Performer Location Encounter Start Date Encounter Closed Date Diagnosis/Indication Diagnosis SNOMED-CT Code Diagnosis ICD10 Code Diagnosis Note [id number] [facility] [place] [address] [place] [address] 07/05/2021 00:00:00 07/05/2021 13:24:46 [id number] [facility] [place] [address] [place] [address] 07/19/2021 00:00:00 07/19/2021 12:01:03 [id number] Evelio Kinney MD [facility] [address] [address] 11/07/2023 15:17:21 11/07/2023 16:02:36 Hypertensive disorder 45895962 I10 Hyperlipidemia 25651175 E78.5 Seasonal a llergic rhinitis 403891392 J30.2 Chronic ob structive pulmonary disease 37460817 J44.9 Menopausal flushing 1984 89030 N95.1 Chronic low back pain 27 1208814 M54.50 Health Concerns Section Related Observation LastModified by Organization Detai ls LastModified Time None Recorded Concern Status LastModified by Organization Details LastModified Time None Recorded Advance Directives Directive Y: Payers Encounter Date Sequence Insurance Name Policy Number Policy [place] Covered Member ID [place] Member ID Guarantor Name 11/07/2023 1 [employer] (MEDICARE REPLACEMENT PPO) [id number] 1 Micki Bean [id number] Micki Bean Notes Date Note Type Note Provider Name and Address Organization Details Recorded Time 11/07/2023 text/html New pt visit:73 yo F is here to establish her care. Pt was seeing PCP at [place], [place] in the past.Doing overall well. Pt is f/u with Cardio at [facility] and is on meds by them. Pt has chronic low back pain and is f/u with production control specialist at [facility]. Pt has taken few epidural injections in the past and it did not help her. Pt doesn't want to go for any surgery for it. Pt is taking Ibuprofen for her back pain. No incontinence. Pt has COPD and was seeing Pulmo in the past for it. Pt is on inhaler for it. No h/o smoking in the past.PMH, FH and SH reviewed. Evelio Kinney MD [address] [facility] [facility] [address], [place], [address], [facility] 11/07/2023 15:57:37 OBGyn Episode No OBEpisode recorded.
--- OUTSIDE RECORDS SUMMARY | 2025-01-01 10:56 | XMS_ITS | Clinical Summary ---
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
--- OUTSIDE RECORDS SUMMARY | 2025-01-01 10:56 | XMS_ITS | Data Portability ---
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 ordered and strongly encouraged. discussed risks and benefits of HRT, of which patient is very aware of already. she strongly desires to continue estradiol patch for quality of life. refilled low dose patch. discussed that I think she has depression and that the effexor may help both depression and hot flashes and that I would recommend she start it. Pt is appreciative of the education and plans to start. Depression precautions given. FU WWE 1 year [email or web address] Not available 04/14/2022 15:12:35 04/18/2023 04/18/2023 healthy female exam/menopause patient declines std testing pap- none further mammogram ordered for May. pt does not want to do this either colonoscopy due in 2016 dexa due 2023 Encouraged weight bearing exercise and 1500mg daily of Calcium with Vitamin D HRT refilled. discussed yearly exams required for refill of HRT. discussed reasons why we do exams, even with hyst. FU 1 year or prn [email or web address] Not available 04/20/2023 09:22:19 Plan of Treatment Reminders Order Date Submit Date Provider Last Modified By Organization Details Last Modified Time Details Appointments None recorded. Lab urinalysis, dipstick 2023 024 [facility] [place], [address], [place], [address], 4 11:54:43 Referral None recorded. Procedures None recorded. Surgeries None recorded. Imaging CT, abdomen + pelvis, w/ contrast [address] [facility], [address], [place], [address], 4 12:06:02 Medication Orders estradiol 0.025 mg/24 hr weekly transdermal patch 2021 022 [id number], [address], [place], [place], [id number], 3 14:32:36 estradiol 0.025 mg/24 hr weekly transdermal patch 2022 023 [id number], [address], [place], [place], [id number], 3 10:42:29 Patient TargetsNo targets recorded. Patient InstructionsNo instructions recorded. Reason for Referral None Reported. Results Created Date Observation Date Name Description Value Unit Range Abnormal Flag Note LastModifiedBy Organization Detail LastModifiedTime 04/01/2004/01/2024 CULTU RE: URINE result report SEE RESULT S BELOW Test: Cultu re: Urine Speci men Sourc e: Urine - Clean Catch Speci men Type: Urine Speci men Date: 4:29 PM Resul t Date: 6:19 AM Resul t Statu s: Final resul t Abnor mal: No Resul ting Lab: [facility] [address] [facility] [address] Tel: CULTU RE ----- ----- ----- --- No growt h in 1 day (dete ction level of 10,00 0 colon ies / ml.) Not Available [facility] (Lab) [address], [place], [address], 04/03/2024 07:23:45 06/16/20 22 06/16/2022 MAMMO , scree ujany, bilat eral No observ ation record ed. [facility] [address], [place], [address], 07/06/2022 10:57:57 06/16/20 22 06/16/2022 MAMMO , scree juany, bilat eral No observ ation record ed. [facility] [address], [place], [address], 07/06/2022 10:58:36 07/05/20 22 06/16/2022 MAMMO , scree juany, bilat eral No observ ation record ed. [address], [place], [address], 06/04/2023 17:08:15 07/06/20 22 01/04/2018 MAMMO , scree juany, bilat eral No observ ation record ed. [email or web address] [address], [place], [address], 04/03/2023 17:28:17 07/18/20 22 06/16/2022 MAMMO , scree juany, bilat eral No observ ation record ed. [facility] [address], [place], [address], 07/19/2022 12:40:20 07/21/20 22 06/16/2022 MAMMO , scree juany, bilat eral No observ ation record ed. [facility] [address], [place], [address], 07/25/2022 10:40:56 07/24/20 22 06/16/2022 MAMMO , scree juany, bilat eral No observ ation record ed. [email or web address] [facility] [address], [place], [address], 07/24/2022 16:08:34 11/21/20 23 11/21/2023 MAMMO , scree juany, bilat eral No observ ation record ed. [address], [place], [address], 04/02/2024 13:06:29 04/07/20 24 04/07/2024 CT, abdom en + pelvi s, w/ contr ast No observ ation record ed. [email or web address] [facility] [address], [place], [address], 04/10/2024 11:12:47 Result Notes None recorded. Problems Name Problem SNOMED Code Status Onset Date Resolution Date Notes Provider Name and Address Organization Details Recorded Time Hormone replacement therapy Active 2022 Pamela Shah MD [address], [place], [address], [facility] 3 10:40:01 History of abdominal hysterectomy 004023528 Active 2022 Pamela Shah MD [address], [place], [address], [facility] 3 10:40:27 Problem Notes None recorded. Procedures Surgical History Date Name Laterality Status Provider Name and Address Organization Details Recorded Time 11/21/20 23 Date of Last Mammogram completed Nancy Aquino [facility] 04/01/2024 16:43:16 04/07/20 21 total replacement of hip completed Yoana [facility] 04/12/2022 15:13:18 11/26/19 19 Most Recent [facility] 04/18/2023 14:39:40 11/26/18 99 total abdominal hysterectomy [facility] 04/12/2022 15:12:59 delivery completed [facility] 04/12/2022 15:13:27 excision of tumor of soft tissue of back completed [facility] 04/12/2022 15:13:43 Imaging Results Imaging Date Name Status LastModified by Organiz ation Details LastModified Time 06/16/2022 MAMMO, screening, bilateral completed [facility] [address], [place], [address], 07/06/2022 10:57:57 06/16/2022 MAMMO, screening, bilateral completed [facility] [address], [place], [address], 07/06/2022 10:58:36 06/16/2022 MAMMO, screening, bilateral completed [email or web address] [facility] [address], [place], [address], 06/04/2023 17:08:15 01/04/2018 MAMMO, screening, bilateral completed [email or web address] [facility] [address] [place] [address] [address], [place], [address], 04/03/2023 17:28:17 06/16/2022 MAMMO, screening, bilateral completed [facility] [address], [place], [address], 07/19/2022 12:40:20 06/16/2022 MAMMO, screening, bilateral completed [facility] [address], [place], [address], 07/25/2022 10:40:56 06/16/2022 MAMMO, screening, bilateral completed [facility] [address], [place], [address], 07/24/2022 16:08:34 11/21/2023 MAMMO, screening, bilateral completed [address], [place], [address], 04/02/2024 13:06:29 04/07/2024 CT, abdomen + pelvis, w/ contrast completed [email or web address] [facility] [address], [place], [address], 04/10/2024 11:12:47 Procedure Notes None recorded. Medical Equipment None Reported. Allergies No known drug allergies Medications Name Sig Start Date Stop Date Status Note LastModified by Organization Details LastModified Time Prescriptio n - Prior Authorizati on Request 08/25 completed Not Available Not Available Not Available celecoxib 200 mg capsule TAKE 1 CAPSULE BY MOUTH TWICE DAILY WITH FOOD 04/18 completed Not Available Not Available Not Available latanoprost 0.005 % eye drops INSTILL 1 DROP INTO BOTH EYES ONCE A DAY IN THE EVENING active Not Available Not Available No t Available atorvastati n 40 mg tablet TAKE 1 TABLET BY MOUTH DAILY active Not Available Not Available No t Available desonide 0.05 % topical cream APPLY TO FACIAL AFFECTED AREAS TWICE DAILY FOR NO MORE THAN 3 WEEKS 04/18 completed Not Available Not Available Not Available venlafaxine ER 37.5 mg capsule,ext ended release 24 hr TAKE 1 CAPSULE BY MOUTH EVERY DAY WITH FOOD 04/18 completed Not Available Not Available Not Available prednisone 10 mg tablet 04/01 completed Not Available Not Available Not Available clindamycin HCl 300 mg capsule TAKE 1 CAPSULE BY MOUTH EVERY 8 HOURS FOR 10 DAYS 04/18 completed Not Available Not Available Not Available irbesartan 150 mg-hydrochl orothiazide 12.5 mg tablet TAKE 1 TABLET BY MOUTH DAILY active Not Available Not Available No t Available ibuprofen 800 mg tablet TAKE 1 TABLET BY MOUTH THREE TIMES DAILY active Not Available Not Available No t Available fluconazole 150 mg tablet TAKE 1 TABLET BY MOUTH TODAY. REPEAT IN 3 DAYS 04/12 completed Not Available Not Available Not Available metoprolol succinate ER 50 mg tablet,exte nded release 24 hr TAKE 1 TABLET BY MOUTH EVERY DAY 04/18 completed Not Available Not Available Not Available hydrocodone 5 mg-acetamin ophen 325 mg tablet TAKE 1 TABLET BY MOUTH EVERY 6 HOURS NEEDED FOR PAIN 04/18 completed Not Available Not Available Not Available acetaminoph en 300 mg-codeine 30 mg tablet TAKE 1 TABLET BY MOUTH EVERY NIGHT AT BEDTIME NEEDED PAIN OR SLEEP 04/18 completed Not Available Not Available Not Available sulfamethox azole 800 mg-trimetho prim 160 mg tablet TAKE 1 TABLET BY MOUTH TWICE DAILY 04/01 completed Not Available Not Available Not Available aspirin 81 mg tablet,koko yed release TAKE 1 TABLET BY MOUTH TWICE DAILY 04/18 completed Not Available Not Available Not Available tramadol 50 mg tablet TAKE 1 TABLET BY MOUTH EVERY 6 HOURS NEEDED FOR PAIN 04/18 completed Not Available Not Available Not Available spironolact one 25 mg tablet TAKE 1 TABLET BY MOUTH DAILY 04/18 completed Not Available Not Available Not Available amoxicillin 875 mg tablet TAKE 1 TABLET BY MOUTH EVERY 12 HOURS FOR 10 DAYS 04/18 completed Not Available Not Available Not Available estradiol 0.025 mg/24 hr weekly transdermal patch APPLY 1 PATCH TOPICALLY TO THE SKIN 1 TIME A WEEK 2023 active Not Available Not Available Not Avai lable lorazepam 0.5 mg tablet BRING TO OFFICE DAY OF SURGERY 04/18 completed Not Available Not Available Not Available doxycycline monohydrate 100 mg capsule TAKE 1 CAPSULE BY MOUTH TWICE DAILY FOR 10 DAYS 04/18 completed Not Available Not Available Not Available cephalexin 500 mg capsule TAKE ALL 4 CAPSULE BY MOUTH ONE HOUR PRIOR TO SCHEDULED SURGERY 04/18 completed Not Available Not Available Not Available dexamethaso ne 4 mg tablet TAKE 1 TABLET BY MOUTH AT 6 AM AND 1 AT 6 PM THE DAY AFTER SURGERY 04/18 completed Not Available Not Available Not Available lisinopril 10 mg tablet TAKE 1 TABLET BY MOUTH EVERY DAY 04/12 completed Not Available Not Available Not Available fluocinolon e 0.01 % topical solution WORK INTO FINGER TIPS AND APPLY TO EARS AND SCALP TWICE DAILY FOR UP TO 3 WEEKS 04/18 completed Not Available Not Available Not Available scopolamine 1 mg over 3 days transdermal patch APPLY 1 PATCH BEHIND THE EAR AND CHANGE EVERY 3 DAYS 04/12 completed Not Available Not Available Not Available albuterol sulfate HFA 90 mcg/actuati on aerosol inhaler INHALE 2 PUFFS BY MOUTH EVERY 4 HOURS NEEDED active Not Available Not Available No t Available ondansetron 4 mg disintegrat ing tablet DISSOLVE 1 TABLET ON THE TONGUE EVERY 6 HOURS NEEDED FOR NAUSEA OR VOMITING 04/18 completed Not Available Not Available Not Available diazepam 5 mg tablet 04/12 completed Not Available Not Available Not Available amoxicillin 875 mg-potassiu m clavulanate 125 mg tablet TAKE 1 TABLET BY MOUTH EVERY 12 HOURS 04/12 completed Not Available Not Available Not Available escitalopra m 10 mg tablet TAKE 1 TABLET BY MOUTH DAILY 04/18 completed Not Available Not Available Not Available nitrofurant oin monohydrate /macrocryst als 100 mg capsule TAKE 1 CAPSULE (100 MG TOTAL) BY MOUTH EVERY 12 (TWELVE) HOURS FOR 5 DAYS. 04/12 completed Not Available Not Available Not Available Wixela Inhub 250 mcg-50 mcg/dose powder for inhalation INHALE 1 PUFF BY MOUTH TWICE DAILY 04/18 completed Not Available Not Available Not Available BinaxNOW COVID-19 Ag Self Test kit TEST DIRECTED TODAY 04/18 completed Not Available Not Available Not Available Paxlovid 300 mg (150 mg x 2)-100 mg tablets in a dose pack FOLLOW PACKAGE DIRECTION S 04/18 completed Not Available Not Available Not Available Vitals Date Recorded Body height Body mass index (BMI) Body weight Systolic blood pressure Diastolic blood pressure Provider Name and Address Organization Details Last Updated DateTime 04/12/2022 147.32 cm 30.9 kg/m2 97764.67 g 137 mm[Hg] 88 mm[Hg] [facility] 2 15:07:38 Date Recorded Body height Body mass index (BMI) Body weight Systolic blood pressure Diastolic blood pressure Provider Name and Address Organization Details Last Updated DateTime 04/18/2023 147.32 cm 29.7 kg/m2 91719.12 g 128 mm[Hg] 82 mm[Hg] [facility] 3 14:32:09 Date Recorded Body height Body mass index (BMI) Body weight Systolic blood pressure Diastolic blood pressure Provider Name and Address Organization Details Last Updated DateTime 04/01/2024 147.32 cm 27.4 kg/m2 50987.6 g 122 mm[Hg] 84 mm[Hg] Nancy Aquino [facility] 16:42:02 Social History Question Answer Notes LastModified by Organizat ion Details LastModified Time Tobacco Smoking Status Never Smoker Yoana Brewer sam, [facility] 04/12/2022 15:11:46 What Is Your Level Of Alcohol Consumption? None Information not available 04/12/2022 Do You Use Any Illicit Or Recreational Drugs? No Information not available 04/12/2022 Has Tobacco Cessation Counseling Been Provided? No Information not available 04/12/2022 Do You Or Have You Ever Used Any Other Forms Of Tobacco Or Nicotine? No Information not available 04/12/2022 Sex: Unknown Functional Status None recorded. Mental Status None recorded. Family History Relationship Description Onset Age of this Age Resolved Age Notes LastModified by Organization Details LastModified Time Father Heart disease [email or web address] Not available 2021 15:12:07 Father Hypertensive disorder [email or web address] Not available 2021 15:12:16 Mother Heart disease [email or web address] Not available 2021 15:12:07 Mother Hypertensive disorder [email or web address] Not available 2021 15:12:16 Medical History Condition Response Allergies (Food, seasonal, environmental ) N Other N Breast Cancer N Drug/Latex Allergies/Reactions N Blood Transfusion N Dermatologic Disorders N Lung Disease N Defects or Inherited Disease N Breast Problem N Gestational Diabetes N Hematologic disorders N Anesthesia Complications N History of STI N Deep Vein Thrombosis N Polycystic ovary syndrome N Anxiety Disorder N Autoimmune disease N Arthritis N Infertility N Polyps N Acid Reflux (GERD) N History of abnormal pap N Cancer N Stroke N Varicosities N Neurologic/Epilepsy N Endometriosis N High Cholesterol N Headaches N Fibromyalgia N Kidney Disease N Heart Problems N Kidney or Bladder Problems N Thyroid Problems N GI Problems N Eating Disorder N Anemia N Art (IVF or FET) N Psychiatric Illness N Ovarian Cancer N Diabetes N Pulmonary (TB, Asthma) N Hepatitis/Liver Disease N No Past Medical History N Eczema N Urinary Tract Infection N Abuse/Domestic Violence N Asthma N Trauma/Violence N Depression/ depression N Heart Disease N Pre-Eclampsia N Hypertension Y Osteoporosis N Thrombophilias N Gynecological History Statement/Question Response Date of Last Colonoscopy Date of Last Mammogram 11/21/2023 Most Recent Bone Density 11/26/2018 Sexually Active? N STIs/STDs N Menses Monthly N Age of first menstrual cycle 15 HPV Vaccine N Sexual Problems? N Current Control Method Hysterectom y LMP Unknown Obstetrics History GPAL:G 6 P 6 0 0 6 Type Value Full Term 6 Living 6 Total 6 Past Encounters Encounter ID Performer Location Encounter Start Date Encounter Closed Date Diagnosis/Indication Diagnosis SNOMED-CT Code Diagnosis ICD10 Code Diagnosis Note [id number] Pamela Shah MD [place] [address],[place] [address] 04/12/2022 14:52:21 04/14/2022 15:19:40 Menopausal flushing 851865914 N95.1 Major depr essive disorder 027487259 F32.9 Screening mammography 24 614365 Z12.31 [id number] Pamela Shah MD [place] [address],[place] [address] 04/18/2023 14:01:34 04/24/2023 16:34:49 Gynecologic examination 91312841 Z01.419 Hormone re placement therapy 058840852 Z79.890 History of abdominal hysterectomy 285061701 Z90.711 [id number] 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 Health Hx was reviewed and updated as reported in chart. Patient is to contact office or go to nearest ED/Urgent care if fever >/= 100.1, pain, excessive bleeding, unusual drainage or swelling in area of concern; or experienci ng worsening sx's or new onset of concerning sx's. Understand ing verbalized . All questions answered to patient satisfacti on. Time spent in visit is a total of 22 mins with at least 50% of visit consisting of counseling and review of plan of care. Health Concerns Section Related Observation LastModified by Organization Detai ls LastModified Time None Recorded Concern Status LastModified by Organization Details LastModified Time None Recorded Advance Directives Directive None Recorded Payers Encounter Date Sequence Insurance Name Policy Number Policy [place] Covered Member ID [place] Member ID Guarantor Name 04/12/2022 1 [facility] (MEDICARE REPLACEMENT/AD VANTAGE - PPO) [id number] Bebe Bean [id number] Micki Bean 04/18/2023 1 [employer] (MEDICARE REPLACEMENT PPO) [id number] Bebe Bean [id number] Micki Bean 04/01/2024 1 [employer] (MEDICARE REPLACEMENT PPO) [id number] Bebe Bean [id number] Micki Bean Notes Date Note Type Note Provider Name and Address Organization Details Recorded Time 04/12/2022 text/html Leelee is a 72yo who just moved here from [place] and would like to continue her estrogen patches. She has had hotflashes for almost 30 years. has been on lowest dose patch for many years, tried to go off a couple times, most recently Nov to January of this year, and had severe hot flashes every 15 minutes. She is miserable off of it and it is worth the risks to her to have a good quality of life.She has HTN but it is well controlled. JB in 1998. She was also prescribed effexor for hot flashes by PCP but has not started it. Depression: yes, cries all the time. son is heroin addict and almost of OD in their house a couple mos ago. mammo 2019 Pamela Shah MD [address], [place], [address], [facility] 04/14/2022 15:16:33 04/18/2023 text/html Patient is a 73y o who presents for an annual exam. She is annoyed she needs an exam. She had JB/BSo and is on estradiol patch, adamantly wants to stay on it. Doesn't think this should require an exam and is irritated by this. No concerns. Took effexor for 2 mos, hated it. Decreased her libido. HTN well controlled. last pap-hyst mammo-05/2022 colonoscopy-2017, normal dexa-2019 normal menopause-yes sexually active-y seatbelts-y exercise-y depression-denies domestic violence-denies tobacco-n concerns- Pamela Shah MD [address], [place], [address], [facility] 04/20/2023 09:22:56 04/01/2024 text/html Micki is a 74y o postmenopausal female here today for lower abdominal-pelvic pain that has been persistent for >1mos; feels it is progressively more intense.Pain feels like stabbing localized or dull ache.Doesn't last long enough to try medication. Hx of hysterectomy-total for non-cancerous indications.Hx of chronic back pain and disc degeneration. Neg pain of pelvis/flankNeg urinary sx'sNeg GI sx'sNeg N/V/F/C/DNeg Vag d/c, odor, irritation, itchingNeg SANEG [facility] Health Hx was reviewed and updated as reported in chart. SHARONDA Mcintosh- [address], [place], [address], [facility] 04/02/2024 13:12:18 OBGyn Episode Ob Episode Information Episode Created Date Number of Fetuses Patient Bloodtype Patient rh Status Prepregnancy Weight lbs Domestic Partner Domestic Partner Phone Father Name Plush Cutter Status 04/12/20 22 1 CLOSED Fetus Data First Name Last Name Admitted to NICU Weight (g) Sex Living Outcome Pediatric Complications Fetus ID Race Codes Race Delivery Type [id number] Repeat Dae Calculation Initial Dae Date Initial Exam Date Initial Exam Provider Initial Ultrasound Date Last Menstrual Period Date Ultra Sound Weeks Gestation 0 Eighteen To Twenty Week Dae Update Ultra Sound Date Fundal Height At Umbil Quickening Date Ultra Sound Latest Weeks Gestation Final Dae Confirmed By Final Dae Confirmed Date Final Dae Date Ultra Sound Latest Days Gestation 0 0 Menstrual History Last Menstrual Date Menses Monthly On Bcp Conception Prior Menses Frequency Hcg Plus Date Menarche Onset Age Delivery Information Delivery Date Delivery Type Labor Anesthesia Weeks Gestation Incision Type Labor Labor Length Hrs Delivered By Post Complications Tubal Sterilization Discharge Date Comments 5 Discharge Information Feeding Method Contraceptive Method Maternal HG B and HCT Levels Ob Episode Information Episode Created Date Number of Fetuses Patient Bloodtype Patient rh Status Prepregnancy Weight lbs Domestic Partner Domestic Partner Phone Father Name Plush Cutter Status 04/12/20 22 1 CLOSED Fetus Data First Name Last Name Admitted to NICU Weight (g) Sex Living Outcome Pediatric Complications Fetus ID Race Codes Race Delivery Type [id number] Repeat Dae Calculation Initial Dae Date Initial Exam Date Initial Exam Provider Initial Ultrasound Date Last Menstrual Period Date Ultra Sound Weeks Gestation 0 Eighteen To Twenty Week Dae Update Ultra Sound Date Fundal Height At Umbil Quickening Date Ultra Sound Latest Weeks Gestation Final Dae Confirmed By Final Dae Confirmed Date Final Dae Date Ultra Sound Latest Days Gestation 0 0 Menstrual History Last Menstrual Date Menses Monthly On Bcp Conception Prior Menses Frequency Hcg Plus Date Menarche Onset Age Delivery Information Delivery Date Delivery Type Labor Anesthesia Weeks Gestation Incision Type Labor Labor Length Hrs Delivered By Post Complications Tubal Sterilization Discharge Date Comments 6 Discharge Information Feeding Method Contraceptive Method Maternal HG B and HCT Levels Ob Episode Information Episode Created Date Number of Fetuses Patient Bloodtype Patient rh Status Prepregnancy Weight lbs Domestic Partner Domestic Partner Phone Father Name Plush Cutter Status 04/12/20 22 1 CLOSED Fetus Data First Name Last Name Admitted to NICU Weight (g) Sex Living Outcome Pediatric Complications Fetus ID Race Codes Race Delivery Type [id number] Repeat Dae Calculation Initial Dae Date Initial Exam Date Initial Exam Provider Initial Ultrasound Date Last Menstrual Period Date Ultra Sound Weeks Gestation 0 Eighteen To Twenty Week Dae Update Ultra Sound Date Fundal Height At Umbil Quickening Date Ultra Sound Latest Weeks Gestation Final Dae Confirmed By Final Dae Confirmed Date Final Dae Date Ultra Sound Latest Days Gestation 0 0 Menstrual History Last Menstrual Date Menses Monthly On Bcp Conception Prior Menses Frequency Hcg Plus Date Menarche Onset Age Delivery Information Delivery Date Delivery Type Labor Anesthesia Weeks Gestation Incision Type Labor Labor Length Hrs Delivered By Post Complications Tubal Sterilization Discharge Date Comments 1 Discharge Information Feeding Method Contraceptive Method Maternal HG B and HCT Levels Ob Episode Information Episode Created Date Number of Fetuses Patient Bloodtype Patient rh Status Prepregnancy Weight lbs Domestic Partner Domestic Partner Phone Father Name Plush Cutter Status 04/12/20 22 1 CLOSED Fetus Data First Name Last Name Admitted to NICU Weight (g) Sex Living Outcome Pediatric Complications Fetus ID Race Codes Race Delivery Type [id number] Vaginal Delivery Dae Calculation Initial Dae Date Initial Exam Date Initial Exam Provider Initial Ultrasound Date Last Menstrual Period Date Ultra Sound Weeks Gestation 0 Eighteen To Twenty Week Dae Update Ultra Sound Date Fundal Height At Umbil Quickening Date Ultra Sound Latest Weeks Gestation Final Dae Confirmed By Final Dae Confirmed Date Final Dae Date Ultra Sound Latest Days Gestation 0 0 Menstrual History Last Menstrual Date Menses Monthly On Bcp Conception Prior Menses Frequency Hcg Plus Date Menarche Onset Age Delivery Information Delivery Date Delivery Type Labor Anesthesia Weeks Gestation Incision Type Labor Labor Length Hrs Delivered By Post Complications Tubal Sterilization Discharge Date Comments 0 Discharge Information Feeding Method Contraceptive Method Maternal HG B and HCT Levels Ob Episode Information Episode Created Date Number of Fetuses Patient Bloodtype Patient rh Status Prepregnancy Weight lbs Domestic Partner Domestic Partner Phone Father Name Plush Cutter Status 04/12/20 22 1 CLOSED Fetus Data First Name Last Name Admitted to NICU Weight (g) Sex Living Outcome Pediatric Complications Fetus ID Race Codes Race Delivery Type [id number] Primary Dae Calculation Initial Dae Date Initial Exam Date Initial Exam Provider Initial Ultrasound Date Last Menstrual Period Date Ultra Sound Weeks Gestation 0 Eighteen To Twenty Week Dae Update Ultra Sound Date Fundal Height At Umbil Quickening Date Ultra Sound Latest Weeks Gestation Final Dae Confirmed By Final Dae Confirmed Date Final Dae Date Ultra Sound Latest Days Gestation 0 0 Menstrual History Last Menstrual Date Menses Monthly On Bcp Conception Prior Menses Frequency Hcg Plus Date Menarche Onset Age Delivery Information Delivery Date Delivery Type Labor Anesthesia Weeks Gestation Incision Type Labor Labor Length Hrs Delivered By Post Complications Tubal Sterilization Discharge Date Comments 7 Discharge Information Feeding Method Contraceptive Method Maternal HG B and HCT Levels Ob Episode Information Episode Created Date Number of Fetuses Patient Bloodtype Patient rh Status Prepregnancy Weight lbs Domestic Partner Domestic Partner Phone Father Name Plush Cutter Status 04/12/20 22 1 CLOSED Fetus Data First Name Last Name Admitted to NICU Weight (g) Sex Living Outcome Pediatric Complications Fetus ID Race Codes Race Delivery Type 82034 Repeat Dae Calculation Initial Dae Date Initial Exam Date Initial Exam Provider Initial Ultrasound Date Last Menstrual Period Date Ultra Sound Weeks Gestation 0 Eighteen To Twenty Week Dae Update Ultra Sound Date Fundal Height At Umbil Quickening Date Ultra Sound Latest Weeks Gestation Final Dae Confirmed By Final Dae Confirmed Date Final Dae Date Ultra Sound Latest Days Gestation 0 0 Menstrual History Last Menstrual Date Menses Monthly On Bcp Conception Prior Menses Frequency Hcg Plus Date Menarche Onset Age Delivery Information Delivery Date Delivery Type Labor Anesthesia Weeks Gestation Incision Type Labor Labor Length Hrs Delivered By Post Complications Tubal Sterilization Discharge Date Comments 8 Discharge Information Feeding Method Contraceptive Method Maternal HG B and HCT Levels
--- OUTSIDE RECORDS SUMMARY | 2025-01-01 10:57 | XMS_ITS | Clinical Summary ---
Author Organization [facility] Address [address] [place] [address] Care Team Providers Care Watchmaker Apprentice Name Role Phone No, Physician Primary Care Provider [phone] Allergies No known active allergies Medications venlafaxine [...] 07/21/2022, Additional history exists Insurance MED[employer]ARE SOL[employer]IONS MED[employer]IONS [employer] MEDICARE Care Teams Watchmaker Apprentice Relationship Specialty Start Date End Date No, Physician PCP - General 06/26/24
[2025-01-01 14:40] LABS: Anion Gap 9 mmol/L (4-12); Blood Urea Nitrogen 15 mg/dL (7-17); Calcium 11.1 mg/dL (8.4-10.2); Carbon Dioxide 25 mmol/L (22-30); Chloride 101 mmol/L (98-107); Estimated Glomerular Filt Rate > 60; Glucose 104 mg/dL (65-110); Potassium 4.5 mmol/L (3.4-5.0); Sodium 135 mmol/L (137-145)
== END 2025-01-01 10:39 | disposition home or self-care (01) ==
LOC: ANHGOSHLAB 10:39
PROVIDERS: PCP Clinical Nurse Specialist; Visit Provider Clinical Nurse Specialist
DX: E83.52 Hypercalcemia (principal)
CPT/HCPCS: 36415; 80048; 82330; 83519; 83970

== ENCOUNTER 2025-06-09 08:48 | Outpatient (CLI) | payer MEDICARE, SELFPAY ==
--- OUTSIDE RECORDS SUMMARY | 2025-06-09 08:59 | XMS_ITS | Data Portability ---
Author Organization [facility] Address [address] [place] [place] [address] Care Team Providers Care Brick Burner Name Role Phone ARASELIMOLLYANTIONETTE Primary Care Provider Assessment Encounter Date Assessment [...] Depression precautions given. FU WWE 1 year [email or web address] Not available 04/14/2022 15:12:35 04/18/2023 04/18/2023 healthy [...] with hyst. FU 1 year or prn [email or web address] Not available 04/20/2023 09:22:19 Plan of Treatment Reminders Order Date Submit Date Provider Last Modified By Organization Details Last Modified Time Details Appointments None recorded. Lab urinalysis, dipstick 2023 024 [facility], [address], [address], [place], [address], 4 11:54:43 Referral None recorded. Procedures None recorded. Surgeries None recorded. Imaging CT, abdomen + pelvis, w/ contrast 2023 024 [facility], [address], [place], [address], 4 12:06:02 Medication Orders estradiol 0.025 mg/24 hr weekly transdermal patch 2022 023 [id number], [address], [place], [place], [id number], 3 10:42:29 estradiol 0.025 mg/24 hr weekly transdermal patch 2021 022 [id number], [address], [place], [id number], 3 14:32:36 Patient TargetsNo targets recorded. Patient InstructionsNo instructions [...] t Abnor mal: No Resul ting Lab: [facility] [address] [address] Tel: CULTU RE ----- ----- ----- --- No growt h in 1 day (dete ction level of 10,00 0 colon ies / ml.) Not Available [facility] (Lab) [address], [place], [address], 04/03/2024 07:23:45 06/16/20 22 06/16/2022 MAMMO , scree juany, bilat eral No observ ation record ed. [facility] [address], [place], [address], 07/06/2022 10:57:57 06/16/2006/16/2022 MAMMO , scree juany, bilat eral No observ ation record ed. [facility] [address], [place], [address], 07/06/2022 10:58:36 07/05/2006/16/2022 MAMMO , scree juany, bilat eral No observ ation record ed. [email or web address] [facility] [address], [place], [address], 06/04/2023 17:08:15 07/06/20 22 01/04/2018 MAMMO , scree juany, bilat eral No observ ation record ed. [email or web address] [address], [place], [address], 04/03/2023 17:28:17 07/18/20 22 06/16/2022 MAMMO , scree juany, bilat eral No observ ation record ed. [facility] [address], [place], [address], 07/19/2022 12:40:20 07/21/20 22 06/16/2022 MAMMO , scree juany, bilat eral No observ ation record ed. [facility] [address], [place], [address], 07/25/2022 10:40:56 07/24/20 22 06/16/2022 MAMMO , scree juany, bilat eral No observ ation record ed. [email or web address] [facility] [address], [place], [address], 07/24/2022 16:08:34 11/21/20 23 11/21/2023 MAMMO , scree juany, bilat eral No observ ation record ed. [address], [place], [address], 04/02/2024 13:06:29 04/07/20 24 04/07/2024 CT, abdom en + pelvi s, w/ contr ast No observ ation record ed. [email or web address] [facility] [address], [place], [address], 04/10/2024 11:12:47 Result Notes None recorded. Problems Name Problem SNOMED Code Status Onset Date Resolution Date Notes Provider Name and Address Organization Details Recorded Time Hormone replacement therapy Active 2022 Pamela Shah MD [address], [place], [address], [facility] 3 10:40:01 History of abdominal hysterectomy 530985070 Active 2022 Pamela Shah MD [address], [place], [address], [facility] 3 10:40:27 Problem Notes None recorded. Procedures Surgical History Date Name Laterality Status Provider Name and Address Organization Details Recorded Time 11/21/20 23 Date of Last Mammogram completed Nancy Aquino [facility] 04/01/2024 16:43:16 04/07/20 21 total replacement of hip completed Oyana [facility] 04/12/2022 15:13:18 11/26/19 19 Most Recent Bone Density completed Yoana [facility] 04/18/2023 14:39:40 11/26/18 99 total abdominal hysterectomy completed Yoana [facility] 04/12/2022 15:12:[address] [facility] 04/12/2022 15:13:27 excision of tumor of soft tissue of back completed [facility] 04/12/2022 15:13:43 Imaging Results None recorded. Procedure Notes None recorded. Medical Equipment None [...] Body mass index (BMI) Body weight Systolic And Diastolic Provider Name and Address Organization Details Last Updated DateTime 04/01/2024 147.32 cm 27.4 kg/m2 27190.6 g 122/84 mm[Hg] Nancy Aquino [facility] 04/01/2024 16:42:02 Date Recorded Body height Body mass index (BMI) Body weight Systolic And Diastolic Provider Name and Address Organization Details Last Updated DateTime 04/12/2022 147.32 cm 30.9 kg/m2 60393.67 g 137/88 mm[Hg] [facility] 04/12/2022 15:07:38 Date Recorded Body height Body mass index (BMI) Body weight Systolic And Diastolic Provider Name and Address Organization Details Last Updated DateTime 04/18/2023 147.32 cm 29.7 kg/m2 99422.12 g 128/82 mm[Hg] [facility] 04/18/2023 14:32:09 Social History Question Answer Notes LastModified by Organizat ion Details LastModified Time Tobacco Smoking Status Never Smoker Yoana Brewer [facility] 04/12/2022 15:11:46 Has Tobacco Cessation Counseling Been Provided? No Information not available 04/12/2022 Sex: Unknown Functional Status Question Answer Note LastModified by Organizat ion Details LastModified Time Do you use any illicit or recreational drugs? No Information not available 04/12/2022 Do you or have you ever used any other forms of tobacco or nicotine? No Information not available 04/12/2022 What is your level of alcohol consumption? None Information not available 04/12/2022 Mental Status None recorded. Family History Relationship [...] (Food, seasonal, environmental ) N Other N Blood Transfusion N Drug/Latex Allergies/Reactions N Breast Cancer N Dermatologic Disorders N Lung Disease N [...] SNOMED-CT Code Diagnosis ICD10 Code Diagnosis Note [id number] Pamela Shah MD [facility] [address] [address] 04/12/2022 14:52:21 04/14/2022 15:19:40 Menopausal flushing 256890268 N95.1 Major depr essive disorder 853269196 F32.9 Screening mammography 24 278452 Z12.31 [id number] Pamela Shah MD [facility] [address] [address] 04/18/2023 14:01:34 04/24/2023 16:34:49 Gynecologic examination 32548301 Z01.419 Hormone re placement therapy 547346369 Z79.890 History of abdominal hysterectomy 249899257 Z90.711 [id number] Savita Arevalo [facility] [address],[facility] [place] [address] 04/01/2024 16:14:46 04/02/2024 14:34:55 Pain in pelvis 73029022 R10.2 R10.[address] scan abdominal/ pelvisLike ly more issues GI than HORSE SHOW JUDGE based on her history and subjective reports.Wi [...] Recorded Advance Directives Directive None Recorded Payers Insurance Date Sequence Insurance Name Policy Number Policy [place] Covered Member ID [place] Member ID Guarantor Name 04/16/2023 1 [facility] (MEDICARE REPLACEMENT/A DVANTAGE - PPO) [id number] Bebe Bean [id number] Micki Bean 04/01/2024 1 [employer] (MEDICARE REPLACEMENT/A DVANTAGE - PPO) [id number] Bebe Bean [id number] Micki Bean Notes Date Note Type Note Provider Name and Address Organization Details Recorded Time 04/12/2022 text/html Leelee is a 72yo who just moved here from [place] and would like to continue her estrogen [...] 2019 Pamela Shah MD [address], [place], [address], [facility] 04/14/2022 15:16:33 04/18/2023 text/html Patient is [...] well controlled. last pap-hyst mammo-05/2022 colonoscopy-2017, normal dexa-2018 normal menopause-yes sexually active-y seatbelts-y exercise-y depression-denies domestic violence-denies tobacco-n concerns- Pamela Shah MD [address], [place], [address], [facility] 04/20/2023 09:22:56 04/01/2024 text/html Micki is [...] reviewed and updated as reported in chart. Savita Arevalo, [facility]- [address], [place], [address], [facility] 04/02/2024 13:12:18 OBGyn Episode Ob Episode Information Episode Created Date Number of Fetuses Patient Bloodtype Patient rh Status Prepregnancy Weight lbs Domestic Partner Domestic Partner Phone Father Name Curriculum Assistant Principal Status 04/12/20 22 1 CLOSED Fetus Data First Name Last Name Admitted to NICU Weight (g) Sex Living Outcome Pediatric Complications Fetus ID Race Codes Race Delivery Type 75862 Repeat Dae Calculation Initial Dae Date Initial [...] Domestic Partner Domestic Partner Phone Father Name Curriculum Assistant Principal Status 04/12/20 22 1 CLOSED Fetus Data First Name Last Name Admitted to NICU Weight (g) Sex Living Outcome Pediatric Complications Fetus ID Race Codes Race Delivery Type 64056 Repeat Dae Calculation Initial Dae Date Initial [...] Domestic Partner Domestic Partner Phone Father Name Curriculum Assistant Principal Status 04/12/20 22 1 CLOSED Fetus Data First Name Last Name Admitted to NICU Weight (g) Sex Living Outcome Pediatric Complications Fetus ID Race Codes Race Delivery Type 58162 Repeat Dae Calculation Initial Dae Date Initial [...] Domestic Partner Domestic Partner Phone Father Name Curriculum Assistant Principal Status 04/12/20 22 1 CLOSED Fetus Data First Name Last Name Admitted to NICU Weight (g) Sex Living Outcome Pediatric Complications Fetus ID Race Codes Race Delivery Type 06446 Vaginal Delivery Dae Calculation Initial Dae Date [...] Domestic Partner Domestic Partner Phone Father Name Curriculum Assistant Principal Status 04/12/20 22 1 CLOSED Fetus Data First Name Last Name Admitted to NICU Weight (g) Sex Living Outcome Pediatric Complications Fetus ID Race Codes Race Delivery Type 95886 Primary Dae Calculation Initial Dae Date Initial [...] Domestic Partner Domestic Partner Phone Father Name Curriculum Assistant Principal Status 04/12/20 22 1 CLOSED Fetus Data First Name Last Name Admitted to NICU Weight (g) Sex Living Outcome Pediatric Complications Fetus ID Race Codes Race Delivery Type 46684 Repeat Dae Calculation Initial Dae Date Initial Exam Date Initial Exam Provider Initial Ultrasound Date Last Menstrual Period Date Ultra Sound Weeks Gestation 0 Eighteen To Twenty Week Dae Update Ultra Sound Date Fundal Height At Umbil Quickening Date Ultra Sound Latest Weeks Gestation Final Dea Confirmed By Final Dae Confirmed Date Final [...]
--- OUTSIDE RECORDS SUMMARY | 2025-06-09 08:59 | XMS_ITS | Data Portability ---
Author Organization [facility], [address] [facility] ([place]) Address [address] 4th [place] [address] Care Team Providers Care Magnetic Tester Name Role Phone ANTIONETTE GRACE Primary Care Provider ANTIONETTE GRACE Primary Care Provider [phone] LETI AZAR Manager Product Support Assessment Encounter Date Assessment Date Assessment LastModified by Organization Details LastModified Time 01/08/2025 01/08/2025 IMPRESSION: Micki is a 74-year-old female with a history of hypertension, COPD, BL DILEEP who presents for evaluation of back pain. Lumbar imaging shows evidence of fairly significant lumbar degenerative disc and facet hypertrophy with levocurvature in addition to moderate L3-L4/L4-L5 canal stenosis and moderate to severe LT L4-L5 foraminal stenosis. Clinically, Micik is having axial back pain from lumbar facet syndrome. She may have an element of LT L5 radiculopathy without weakness, but this is somewhat intermittent in nature. She says she has tried conservative treatments in the past including physical therapy, home exercises, yoga, ice, heat, rest, chiropractic, massage, acupuncture, anti-inflammatorie s, muscle relaxants, gabapentin. Plan is trial of facet injections for axial back pain. She would also like to do another round of physical therapy for ongoing back and core strengthening efforts. PLAN: Procedural Interventions: > Offered BL L4-S1 MBB/RFA for lumbar facet syndrome. She takes no blood thinners. > Consider LT L4-L5 [place] DAVID for possible LT L5 radiculopathy at the follow-up visit. > Risks, benefits, and alternatives were reviewed. Specific risks discussed include bleeding complications, infection, permanent nerve damage, adverse medication effects, and failure to provide pain relief. Written materials about informed consent were also provided. Medication Changes: > Relevant medications reviewed. Patient is taking ibuprofen as needed. > Lumoid Prescription Monitoring Program web-site was reviewed today. Functional Rehab: > Will refer to physical therapy for strengthening/stab ilizing exercises and development of a home exercise regimen. Referrals: > Consider spine surgery evaluation, pending response to ongoing conservative treatments. Follow Up: > We will see the patient back in clinic 4-12 weeks after undergoing the interventions discussed above. > Educational materials were provided about the patient's presenting condition and treatment recommendations per evidence-based guidelines. > All questions were answered. Patient understands they can contact the office with any additional questions or concerns they may have. REASON FOR VISIT: Back Pain Radiation: Nothing consistent left lateral leg pain that she attributes to her prior hip surgery Prior Surgery: None Initial Presentation: Micki is a 74-year-old female presents to me for initial evaluation of back pain. She describes pain around the lumbosacral junction, without clear radiation down the legs. The pain is worse with standing or sitting. Laying down, medication, heat seem to help. The pain has been going on for about 25 years. She says she has tried conservative treatments in the past including physical therapy, home exercises, yoga, ice, heat, rest, chiropractic, massage, acupuncture, anti-inflammatorie s, muscle relaxants, gabapentin. No history of prior back surgeries. She may have had some trigger point like injections in the past from what she describes, but I do not have access to any records. Lumbar imaging shows evidence of fairly significant lumbar degenerative disc and facet hypertrophy with levocurvature in addition to moderate L3-L4/L4-L5 canal stenosis and moderate to severe LT L4-L5 foraminal stenosis. Patient has moderate to severe chronic axial pain for at least 3 months. Patient has failed to respond to conservative treatments. There are no untreated radiculopathies and there are no other known causes of axial pain. Patient rates VAS pain score for axial back pain from facet joints as 7 out of 10 prior to injections. Imaging/Studies: XR Lumbar 05/01/2024 ([place]) Impression: Lumbar degenerative disc disease and facet hypertrophy with levocurvature. MRI L-spine 05/15/2024 1. Multiple levels of degenerative changes of the lumbar spine as described level by level above. 2. Single hypotense linear intrathecal structure spanning L3-L4 to the level of S1-S2. This is unchanged compared to 202. This is a nonspecific finding and the calcification/mine ralization of the nerve root is possible. Sequela of arachnoiditis is also consideration, however this is felt to be less likely due to the other cauda equina nerve roots having a normal appearance without definite clumping or enlargement. This could also conceivably represent a flow void from an intrathecal vein. TREATMENT HISTORY: Activity modification/rest Ice/Heat Home Exercise Program / Stretching Physical therapy for primary complaint - Yoga TENS Unit Chiropractic Massage Acupuncture Topicals Tylenol NSAIDS Muscle Relaxants Gabapentin Opioids CBD PREVIOUS INJECTIONS: ? TPI injections in [place] no records available PHYSICAL EXAM: GENERAL: No acute distress. CV: Acyanotic. CHEST: Unlabored respirations. MUSCULOSKELETAL: Able to ambulate without assistive devices. Bilateral lumbar paraspinal tenderness noted, worse with twisting/extension (facet loading maneuvers). No SI joint tenderness. No greater trochanteric bursa tenderness. NEUROLOGICAL: Strength intact with hip flexion, knee extension, and plantar flexion. INTEGUMENT: No evidence of erythema or swelling in lumbar spine. PSYCHIATRIC: Mood and affect within normal limits. Not available 01/08/2025 11:18:37 01/19/2025 01/19/2025 PROVIDER: Sam Schaefer MD LOCATION: [facility] PROCEDURE PERFORMED: 1. Diagnostic BILATERAL L4-L5, L5-S1 facet joint nerve block under fluoroscopic guidance #1 PRE-PROCEDURE DIAGNOSIS: 1. M47.897 Other spondylosis, lumbosacral region POST-PROCEDURE DIAGNOSIS: Same as above. INDICATION FOR PROCEDURE: Based on the patient s clinical history, physical exam, and all available diagnostic studies, medial branch nerve blocks are appropriate at this time. Patient has tried conservative therapies but moderate to severe pain and functional impairment persist. Therefore, interventional injection therapy is medically necessary for the purpose of controlling pain and improving function. The patient has not had diagnostic medial branch blocks in the past. INFORMED CONSENT: The patient was greeted in the pre-procedural area and identified by name, medical record number, and date of . The indications for, risks, benefits, and alternatives to procedure were discussed in detail, and all questions were answered to the patient s satisfaction. Informed consent was obtained, signed, witnessed, and saved in the medical record. SEDATION: 5mg PO Valium ANESTHETIC: Local POSITION: Prone PROCEDURE IN DETAIL: The patient was brought into the procedure room and positioned on the fluoroscopy table. All pressure points were checked and comfortably padded with the patient awake. A formal time-out procedure was performed per protocol; name, allergies, site of procedure and procedure title were verified before beginning the procedure. The operative area was prepped and draped in the usual sterile fashion. Using fluoroscopic guidance, the lumbosacral spine was scanned and the C-arm was obliqued to visualize the pedicles on both sides. The skin and subcutaneous tissues overlying the trajectory of needle insertion were anesthetized with 1% lidocaine using a 25-gauge x 1-1/2 inch needle. A 22-gauge x 3.5 inch spinal needle was advanced under serial fluoroscopic guidance along the anesthetized track toward the BILATERAL L4-L5, L5-S1 facet joints. The facet joint medial branch nerve was targeted at the upper end of the pedicle at the junction of the superior articular process and transverse process at the corresponding vertebral body. The L5 dorsal ramus nerve was targeted in the groove at the junction of the S1 articular process and sacral ala. Correct needle position and depth were confirmed on anteroposterior and lateral views. After negative aspiration for blood and CSF, a small volume of Omnipaque 300mg/ml was injected and confirmed spread along the medial branch areas at the indicated level without vascular uptake. After negative aspiration, 0.5mL of 0.75% bupivacaine was injected at each level. The needle was re-styletted and removed. Pressure was held over the needle insertion site and hemostasis was confirmed. POST-PROCEDURE: No immediate post-procedure complications were noted. The patient was monitored for approximately 15 minutes in the post procedure recovery area and discharged home in stable hemodynamic and neurological condition. The patient was given verbal and written post-operative instructions and discharged with a pain diary to keep track of pain relief from this diagnostic injection. My office will call the on the next business day for assessment and coordinate scheduling of subsequent procedures or office re-evaluation, depending on the degree of relief obtained. In case of emergency, the patient understands that they may call my office with questions or seek evaluation in the Emergency Room. Fluoroscopy Time: 31 seconds Images Taken: 4 Not available 01/19/2025 11:02:30 02/02/2025 02/02/2025 PROVIDER: Sam Schaefer MD LOCATION: [facility] PROCEDURE PERFORMED: 1. Diagnostic BILATERAL L4-L5, L5-S1 facet joint nerve block under fluoroscopic guidance #2 PRE-PROCEDURE DIAGNOSIS: 1. M47.897 Other spondylosis, lumbosacral region POST-PROCEDURE DIAGNOSIS: Same as above. INDICATION FOR PROCEDURE: Based on the patient s clinical history, physical exam, and all available diagnostic studies, medial branch nerve blocks are appropriate at this time. Patient has tried conservative therapies but moderate to severe pain and functional impairment persist. Therefore, interventional injection therapy is medically necessary for the purpose of controlling pain and improving function. The patient underwent medial branch blockade in the past, on 01/19/2025, with 80% improvement in pain and function. INFORMED CONSENT: The patient was greeted in the pre-procedural area and identified by name, medical record number, and date of . The indications for, risks, benefits, and alternatives to procedure were discussed in detail, and all questions were answered to the patient s satisfaction. Informed consent was obtained, signed, witnessed, and saved in the medical record. SEDATION: 5mg PO Valium ANESTHETIC: Local POSITION: Prone PROCEDURE IN DETAIL: The patient was brought into the procedure room and positioned on the fluoroscopy table. All pressure points were checked and comfortably padded with the patient awake. A formal time-out procedure was performed per protocol; name, allergies, site of procedure and procedure title were verified before beginning the procedure. The operative area was prepped and draped in the usual sterile fashion. Using fluoroscopic guidance, the lumbosacral spine was scanned and the C-arm was obliqued to visualize the pedicles on both sides. The skin and subcutaneous tissues overlying the trajectory of needle insertion were anesthetized with 1% lidocaine using a 25-gauge x 1-1/2 inch needle. A 22-gauge x 3.5 inch spinal needle was advanced under serial fluoroscopic guidance along the anesthetized track toward the BILATERAL L4-L5, L5-S1 facet joints. The facet joint medial branch nerve was targeted at the upper end of the pedicle at the junction of the superior articular process and transverse process at the corresponding vertebral body. The L5 dorsal ramus nerve was targeted in the groove at the junction of the S1 articular process and sacral ala. Correct needle position and depth were confirmed on anteroposterior and lateral views. After negative aspiration for blood and CSF, a small volume of Omnipaque 300mg/ml was injected and confirmed spread along the medial branch areas at the indicated level without vascular uptake. After negative aspiration, 0.5mL of 0.75% bupivacaine was injected at each level. The needle was re-styletted and removed. Pressure was held over the needle insertion site and hemostasis was confirmed. POST-PROCEDURE: No immediate post-procedure complications were noted. The patient was monitored for approximately 15 minutes in the post procedure recovery area and discharged home in stable hemodynamic and neurological condition. Patient having labile blood pressure throughout visit as a result of not taking her BP meds. She said [place] 90 [place] away so could not get them until she goes home. Denies CP, SOB, AMS, etc. Wanted to proceed with valium for anxiolysis and understands she should always take her HTN meds like normal for spine procedures. The patient was given verbal and written post-operative instructions and discharged with a pain diary to keep track of pain relief from this diagnostic injection. My office will call the on the next business day for assessment and coordinate scheduling of subsequent procedures or office re-evaluation, depending on the degree of relief obtained. In case of emergency, the patient understands that they may call my office with questions or seek evaluation in the Emergency Room. Fluoroscopy Time: 30 seconds Images Taken: 4 Not available 02/02/2025 11:28:53 2025 2025 PROVIDER: Sam Schaefer MD LOCATION: [facility] PROCEDURE PERFORMED: 1. Radiofrequency ablation of the RIGHT L4-L5, L5-S1 facet joints under fluoroscopic guidance PRE-PROCEDURE DIAGNOSIS: 1. M47.897 Other spondylosis, lumbosacral region POST-PROCEDURE DIAGNOSIS: Same as above. INDICATION FOR PROCEDURE: Based on the patient s clinical history, physical exam, and all available diagnostic studies, interventional therapy is appropriate at this time. Patient has tried conservative therapies but moderate to severe pain and functional impairment persist. Therefore, interventional injection therapy is medically necessary for the purpose of controlling pain and improving function. The patient underwent successful diagnostic facet nerve blockade on 01/19/2025 and 02/02/2025, with 80% improvement in pain and function. INFORMED CONSENT: The patient was greeted in the pre-procedural area and identified by name, medical record number, and date of . The indications for, risks, benefits, and alternatives to procedure were discussed in detail, and all questions were answered to the patient s satisfaction. Informed consent was obtained, signed, witnessed, and saved in the medical record. SEDATION: IV midazolam 1mg , IV fentanyl 100mcg ANESTHETIC: Local POSITION: Prone PROCEDURE IN DETAIL: The patient was brought into the procedure room and positioned on the fluoroscopy table. All pressure points were checked and comfortably padded with the patient awake. A grounding pad was applied to the leg. A formal time-out procedure was performed per protocol; name, allergies, site of procedure and procedure title were verified before beginning the procedure. The operative area was prepped and draped in the usual sterile fashion. Using fluoroscopic guidance, the lumbosacral spine was scanned and the C-arm was obliqued to visualize the pedicles on both sides. The skin and subcutaneous tissues overlying the trajectory of needle insertion were anesthetized with 1% lidocaine using a 25-gauge x 1-1/2 inch needle. A 16-gauge x 100mm [employer] standard curved needle with 10mm active tip was advanced under serial fluoroscopic guidance along the anesthetized track toward the RIGHT L4-L5, L5-S1 facet joints. The facet joint medial branch nerves were targeted at the upper end of the pedicle at the junction of the superior articular process and transverse process at the corresponding vertebral body. The L5 dorsal ramus nerve was targeted in the groove at the junction of the S1 articular process and sacral ala. The positioning of the needle was confirmed on anteroposterior, lateral, and oblique views. Motor testing was conducted at 2 hertz, 2.5 volts and no lower extremity motor stimulation was seen at any level. Impedance was within normal range. After negative aspiration for blood and CSF, 1mL of 1% lidocaine was injected at each level. We waited 3 minutes for the numbing medication to work before beginning the ablation. Thermal radiofrequency ablation was done for 120 seconds at 90 degrees Celsius. The needle was re-styletted and removed. Pressure was held over the needle insertion site and hemostasis was confirmed. POST-PROCEDURE: No immediate post-procedure complications were noted. The patient was monitored for approximately 30 minutes in the post procedure recovery area and discharged home in stable hemodynamic and neurological condition. The patient was given verbal and written post-operative instructions. My office will call the patient in approximately one week for assessment and set up a follow up appointment in approximately 2-8 weeks, or sooner if clinically indicated. In case of emergency, the patient understands that they may call my office with questions or seek evaluation in the Emergency Room. Fluoroscopy Time: 66 seconds Images Taken: 7 Conscious sedation was performed for 14 minutes. I supervised and directed Aaliyah Huff RN, who assisted in monitoring the patient s level of consciousness and physiologic status throughout the procedure. Not available 2025 11:44:44 02/25/2025 02/25/2025 PROVIDER: Sam Schaefer MD LOCATION: [facility] PROCEDURE PERFORMED: 1. Radiofrequency ablation of the LEFT L4-L5, L5-S1 facet joints under fluoroscopic guidance PRE-PROCEDURE DIAGNOSIS: 1. M47.897 Other spondylosis, lumbosacral region POST-PROCEDURE DIAGNOSIS: Same as above. INDICATION FOR PROCEDURE: Based on the patient s clinical history, physical exam, and all available diagnostic studies, interventional therapy is appropriate at this time. Patient has tried conservative therapies but moderate to severe pain and functional impairment persist. Therefore, interventional injection therapy is medically necessary for the purpose of controlling pain and improving function. The patient underwent successful diagnostic facet nerve blockade on 01/19/2025, 02/02/2025, with 80% improvement in pain and function. INFORMED CONSENT: The patient was greeted in the pre-procedural area and identified by name, medical record number, and date of . The indications for, risks, benefits, and alternatives to procedure were discussed in detail, and all questions were answered to the patient s satisfaction. Informed consent was obtained, signed, witnessed, and saved in the medical record. SEDATION: IV midazolam 2mg , IV fentanyl 75mcg ANESTHETIC: Local POSITION: Prone PROCEDURE IN DETAIL: The patient was brought into the procedure room and positioned on the fluoroscopy table. All pressure points were checked and comfortably padded with the patient awake. A grounding pad was applied to the leg. A formal time-out procedure was performed per protocol; name, allergies, site of procedure and procedure title were verified before beginning the procedure. The operative area was prepped and draped in the usual sterile fashion. Using fluoroscopic guidance, the lumbosacral spine was scanned and the C-arm was obliqued to visualize the pedicles on both sides. The skin and subcutaneous tissues overlying the trajectory of needle insertion were anesthetized with 1% lidocaine using a 25-gauge x 1-1/2 inch needle. A 16-gauge x 100mm [employer] standard curved needle with 10mm active tip was advanced under serial fluoroscopic guidance along the anesthetized track toward the LEFT L4-L5, L5-S1 facet joints. The facet joint medial branch nerves were targeted at the upper end of the pedicle at the junction of the superior articular process and transverse process at the corresponding vertebral body. The L5 dorsal ramus nerve was targeted in the groove at the junction of the S1 articular process and sacral ala. The positioning of the needle was confirmed on anteroposterior, lateral, and oblique views. Motor testing was conducted at 2 hertz, 2.5 volts and no lower extremity motor stimulation was seen at any level. Impedance was within normal range. After negative aspiration for blood and CSF, 1mL of 1% lidocaine was injected at each level. We waited 3 minutes for the numbing medication to work before beginning the ablation. Thermal radiofrequency ablation was done for 120 seconds at 90 degrees Celsius. The needle was re-styletted and removed. Pressure was held over the needle insertion site and hemostasis was confirmed. POST-PROCEDURE: No immediate post-procedure complications were noted. The patient was monitored for approximately 30 minutes in the post procedure recovery area and discharged home in stable hemodynamic and neurological condition. The patient was given verbal and written post-operative instructions. My office will call the patient in approximately one week for assessment and set up a follow up appointment in approximately 2-8 weeks, or sooner if clinically indicated. In case of emergency, the patient understands that they may call my office with questions or seek evaluation in the Emergency Room. Fluoroscopy Time: 56 seconds Images Taken: 7 Conscious sedation was performed for 11 minutes. I supervised and directed Aaliyah Huff RN, who assisted in monitoring the patient s level of consciousness and physiologic status throughout the procedure. Not available 02/25/2025 11:40:10 Plan of Treatment Reminders Order Date Submit Date Provider Last Modified By Organization Details Last Modified Time Details Appointments Establish ed Patient 15.EST 2025 10:30A M Ashley Guiterres Not available Not available Not available Lab None recorded. Referral None recorded. Procedures None recorded. Surgeries None recorded. Imaging None recorded. Medication Orders None recorded. Patient TargetsNo targets recorded. Patient Instructions Encounter Date Encounter Id Patient Instructions Last Modified By Organization Details Last Modified Time 01/08/2025 [id number] CARDIAC DEVICE: none CONTRAST DYE ALLERGY: no ANTICOAGULATION: no DIABETIC: no [email or web address] Not available 01/08/2025 10:52:03 Reason for Referral None Reported. Results Created Date Observation Date Name Description Value Unit Range Abnormal Flag Note LastModifiedBy Organization Detail LastModifiedTime 04/13/2006/11/2024 MRI, lumba r spine , w/o contr ast No observ ation record ed. [email or web address] Not Available 03/26 15:01:59 05/06/2006/11/2024 MRI, lumba r spine , w/o contr ast No observ ation record ed. [email or web address] [facility] [address], [place], [address], 05/06/2025 10:32:00 Result Notes None recorded. Problems Name Problem SNOMED Code Status Onset Date Resolution Date Notes Provider Name and Address Organization Details Recorded Time Mild aortic valve regurgitati on 470246924 Active 2024 RAFAEL KAM [address] [place] [address], [phone], [facility] 5 15:25:39 Mixed hyperlipide ishmael 365839984 Active 2024 RAFAEL KAM [address] [place] [address], [phone], [facility] 5 15:25:45 Dyslipidemi a 093506014 Active 2024 Susana Armijo null, [facility] 5 14:19:43 Lumbosacral spondylosis 607691497 Active 2024 Laura Yung null, [facility] 5 11:06:55 Lumbar radiculopat hy 032189712 Active 2024 Sam Schaefer MD [address] [place] [address], [phone], [facility] 5 11:18:40 Arthropathy of lumbar facet joint 616364814 Active 2024 Sam Schaefer MD [address] [place] [address], [phone], [facility] 5 11:18:50 Meralgia paresthetic a of left leg [id number] 06 Active 2023 Antionette Grace MD [address] [address] [place] [address], [phone], [facility] 4 17:14:42 Thoracic back pain [id number] Active 2023 Antionette Grace MD [address] [place] [address], [phone], [facility] 4 17:18:55 Low back pain [id number] Active 2023 Antionette Grace MD [address] [place] [address], [phone], [facility] 4 17:19:14 Essential hypertensio n [id number] Active 2023 NEIL KAMP-C [address] [place] [address], [phone] 3, [facility] 5 15:25:42 Problem Notes Documentation Provider Name and Address Organization Details Recorded Time [address] [phone] Micki Bena 74yo F 1950 #[id number] 01/08/2025 DeaJannie Grace MD, Micki Bean was seen in our office today 01/08/2025, and a copy of that evaluation is enclosed. Thank you for allowing us to participate in the care of your patient. Please contact us with any questions. Sincerely, Electronically Signed by: SAM SCHAEFER MD Encounter Reason/DateNone recorded 01/08/2025 - 09:30AM - [address] Interventional Spine ([place])ProblemsReviewed Problems Mixed hyperlipidemia - Onset: 12/02/2024 Dyslipidemia - Onset: 12/03/2024 Essential hypertension - Onset: 06/16/2024 Arthropathy of lumbar facet joint - Onset: 01/08/2025 Lumbosacral spondylosis - Onset: 01/08/2025 Thoracic back pain - Onset: 05/01/2024 Low back pain - Onset: 05/01/2024 Lumbar radiculopathy - Onset: 01/08/2025 Meralgia paresthetica of left leg - Onset: 05/01/2024 Mild aortic valve regurgitation - Onset: 12/02/2024 Allergies Reviewed Allergies NKDA No Known Drug Allergies (Active) OnsetDate: 05/06/2021; Medications Reviewed Medications NameDate Source albuterol sulfate HFA 90 mcg/actuation aerosol inhalerINHALE 2 PUFFS BY MOUTH EVERY 6 HOURS GHISXR46/13/23 filled surescripts amitriptyline 10 mg tabletTITRATE DIRECTED BETWEEN 1 AND 5 TABLETS EGQMQBK81/10/24 renewed Antionette Grace MD atorvastatin 40 mg tabletTAKE 1 TABLET BY MOUTH DAILY12/29/24 filled surescripts baclofen 10 mg tabletTAKE 1 TABLET BY MOUTH EVERY 8 HOURS CSWXIR85/13/23 filled surescripts BinaxNOW COVID-19 Ag Self Test kitTEST DIRECTED TODAY11/02/24 filled surescripts diazePAM 5 mg tabletTAKE 1 TABLET BY MOUTH 1 HOUR BEFORE QFXPNZKOB86/20/24 filled surescripts estradioL 0.025 mg/24 hr weekly transdermal patchAPPLY 1 PATCH TOPICALLY TO THE SKIN 1 TIME A WEEK12/25/24 filled surescripts fluticasone 250 mcg-salmeteroL 50 mcg/dose blistr powdr for inhalationINHALE 1 PUFF BY MOUTH TWICE DAILY06/08/23 filled surescripts ibuprofen 800 mg tabletTAKE 1 TABLET BY MOUTH THREE TIMES DAILY12/16/24 filled surescripts irbesartan 150 mg-hydrochlorothiazide 12.5 mg tabletTAKE 1 TABLET BY MOUTH EVERY DAY IN THE DSVGZQR53/05/24 filled surescripts latanoprost 0.005 % eye dropsINSTILL 1 DROP IN BOTH EYES EVERY ENHVOXW33/25/24 filled surescripts meloxicam 7.5 mg tabletTAKE 1 TABLET BY MOUTH EVERY 12 HOURS AUFCUI53/16/23 filled surescripts mupirocin 2 % topical ointmentAPPLY TOPICALLY IN EACH NOSTRIL TWICE DAILY FOR 5 DAYS07/16/24 filled surescripts ondansetron 4 mg disintegrating tabletDISSOLVE 1 TO 2 TABLETS UNDER THE TONGUE EVERY 4 TO 8 HOURS NEEDED FOR NAUSEA OR GGJGHPIH64/18/23 filled surescripts PARoxetine 10 mg tabletTAKE 1 TABLET BY MOUTH EVERY DAY AT HCMCIMP36/13/23 filled surescripts Family HistoryReviewed Family History Unspecified Relation - Asthma - Hypercholesterolemia Mother - Diabetes mellitus - Hypertensive disorder Father - Heart disease - Hypertensive disorder Brother - Hypertensive disorder - Seizure disorder - Cerebrovascular accident Social HistoryReviewed Social History Substance UseDo you or have you ever smoked tobacco?: Never smokerWhat is your level of alcohol consumption?: NoneDo you use any illicit or recreational drugs?: NoWhat was the date of your most recent tobacco screening?: 4Diet and ExerciseHow many times per week do you exercise?: 1-2 times per weekEducation and OccupationAre you currently employed?: NoWhat is your occupation?: RetiredAdvance DirectiveDo you have an advance directive?: NoDo you have a medical power of immigration attorney?: NoCaffeine use-2 cups/glasses per day, Identified By: Kolby Stoll Last Edited: 15 Oct 2022 6:23PM ICD9 Code: V49.89 OnSet Date: 20221015 Last Reviewed Date: 20221015 SnomedCode: [id number] ICD10 Code: Z78.9 Exercises regularly-3 days per week, 20 minutes per session, Identified By: Kolby Stoll Last Edited: 15 Oct 2022 6:23PM OnSet Date: 20221015 Last Reviewed Date: 20221015 SnomedCode: [id number] , Type: Chronic Last Edited: 06 Jun 2022 2:00PM Last Reviewed Date: 20220606 SnomedCode: [id number] Never a smoker, Last Edited: 15 Oct 2022 6:23PM OnSet Date: 20221015 Last Reviewed Date: 20221015 SnomedCode: [id number] No illicit drug use, Identified By: Kolby Stoll Last Edited: 15 Oct 2022 6:23PM OnSet Date: 20221015 Last Reviewed Date: 20221015 SnomedCode: [id number] Retired from employment, Type: Chronic Last Edited: 07 Dec 2022 2:25PM Last Reviewed Date: 20221207 SnomedCode: [id number] Surgical HistoryReviewed Surgical & Procedure History Total hip arthroplasty - Total hip replacement Total hysterectomy - Hysterectomy (total) Colonoscopy with biopsy - Colonoscopy (camera from below into colon) delivery - Additional HistoryNone recordedHistory of Present IllnessNone recordedReview of SystemsNone recordedPhysical ExamNone recordedProcedure DocumentationNone recordedAssessment/PlanIMPRESSION:Micki is a 74-year-old female with a history of hypertension, COPD, BL DILEEP who presents for evaluation of back pain. Lumbar imaging shows evidence of fairly significant lumbar degenerative disc and facet hypertrophy with levocurvature in addition to moderate L3-L4/L4-L5 canal stenosis and moderate to severe LT L4-L5 foraminal stenosis. Clinically, Micki is having axial back pain from lumbar facet syndrome. She may have an element of LT L5 radiculopathy without weakness, but this is somewhat intermittent in nature. She says she has tried conservative treatments in the past including physical therapy, home exercises, yoga, ice, heat, rest, chiropractic, massage, acupuncture, anti-inflammatories, muscle relaxants, gabapentin. Plan is trial of facet injections for axial back pain. She would also like to do another round of physical therapy for ongoing back and core strengthening efforts. PLAN:Procedural Interventions:> Offered BL L4-S1 MBB/RFA for lumbar facet syndrome. She takes no blood thinners.> Consider LT L4-L5 IL DAVID for possible LT L5 radiculopathy at the follow-up visit.> Risks, benefits, and alternatives were reviewed. Specific risks discussed include bleeding complications, infection, permanent nerve damage, adverse medication effects, and failure to provide pain relief. Written materials about informed consent were also provided.Medication Changes:> Relevant medications reviewed. Patient is taking ibuprofen as needed.> [place] Prescription Monitoring Program web-site was reviewed today.Functional Rehab:> Will refer to physical therapy for strengthening/stabilizing exercises and development of a home exercise regimen.Referrals:> Consider spine surgery evaluation, pending response to ongoing conservative treatments.Follow Up:> We will see the patient back in clinic 4-12 weeks after undergoing the interventions discussed above.> Educational materials were provided about the patient's presenting condition and treatment recommendations per evidence-based guidelines.> All questions were answered. Patient understands they can contact the office with any additional questions or concerns they may have. REASON FOR VISIT:Back PainRadiation: Nothing consistent left lateral leg pain that she attributes to her prior hip surgeryPrior Surgery: NoneInitial Presentation:Micki is a 74-year-old female presents to me for initial evaluation of back pain. She describes pain around the lumbosacral junction, without clear radiation down the legs. The pain is worse with standing or sitting. Laying down, medication, heat seem to help. The pain has been going on for about 25 years. She says she has tried conservative treatments in the past including physical therapy, home exercises, yoga, ice, heat, rest, chiropractic, massage, acupuncture, anti-inflammatories, muscle relaxants, gabapentin. No history of prior back surgeries. She may have had some trigger point like injections in the past from what she describes, but I do not have access to any records. Lumbar imaging shows evidence of fairly significant lumbar degenerative disc and facet hypertrophy with levocurvature in addition to moderate L3-L4/L4-L5 canal stenosis and moderate to severe LT L4-L5 foraminal stenosis. Patient has moderate to severe chronic axial pain for at least 3 months. Patient has failed to respond to conservative treatments. There are no untreated radiculopathies and there are no other known causes of axial pain. Patient rates VAS pain score for axial back pain from facet joints as 7 out of 10 prior to injections. Imaging/Studies:XR Lumbar 05/01/2024 ([place])Impression: Lumbar degenerative disc disease and facet hypertrophy with levocurvature. MRI L-spine 05/15/2024 1. Multiple levels of degenerative changes of the lumbar spine as described level by level above. 2. Single hypotense linear intrathecal structure spanning L3-L4 to the level of S1-S2. This is unchanged compared to 2021. This is a nonspecific finding and the calcification/mineralization of the nerve root is possible. Sequela of arachnoiditis is also consideration, however this is felt to be less likely due to the other cauda equina nerve roots having a normal appearance without definite clumping or enlargement. This could also conceivably represent a flow void from an intrathecal vein. TREATMENT HISTORY:Activity modification/restIce/HeatHome Exercise Program / StretchingPhysical therapy for primary complaint -YogaTENS UnitChiropracticMassageAcupunctureTopicalsTylenolNSAID SMuscle RelaxantsGabapentinOpioids CBD PREVIOUS INJECTIONS:? TPI injections in [place] no records available PHYSICAL EXAM:GENERAL: No acute distress. CV: Acyanotic. CHEST: Unlabored respirations. MUSCULOSKELETAL: Able to ambulate without assistive devices. Bilateral lumbar paraspinal tenderness noted, worse with twisting/extension (facet loading maneuvers). No SI joint tenderness. No greater trochanteric bursa tenderness. NEUROLOGICAL: Strength intact with hip flexion, knee extension, and plantar flexion. INTEGUMENT: No evidence of erythema or swelling in lumbar spine. PSYCHIATRIC: Mood and affect within normal limits. 1.Lumbar facet yeqqzqzsturK43.816: Spondylosis without myelopathy or radiculopathy, lumbar region Discussion NotesCARDIAC DEVICE: noneCONTRAST DYE ALLERGY: noANTICOAGULATION: noDIABETIC: no Return to Office RAFAEL KAM for Established Patient 15.EST at [address] Card[facility] ([place]) on 12/04/2025 at 10:30 AM Antionette Grace MD [facility] [place] [address], [phone] [place] [address] 22:28:06 [place] [address] [place] [phone] Micki Bean 74yo F 1950 #[id number] 01/19/2025 DeaJannie Grace MD, Micki Bean was seen in our office today 01/19/2025, and a copy of that evaluation is enclosed. Thank you for allowing us to participate in the care of your patient. Please contact us with any questions. Sincerely, Electronically Signed by: SAM SCHAEFER MD Encounter Reason/DateNone recorded 01/19/2025 - 10:15AM - [facility] Interventional Spine ([place])ProblemsReviewed Problems Mixed hyperlipidemia - Onset: 12/02/2024 Dyslipidemia - Onset: 12/03/2024 Essential hypertension - Onset: 06/16/2024 Arthropathy of lumbar facet joint - Onset: 01/08/2025 Lumbosacral spondylosis - Onset: 01/08/2025 Thoracic back pain - Onset: 05/01/2024 Low back pain - Onset: 05/01/2024 Lumbar radiculopathy - Onset: 01/08/2025 Meralgia paresthetica of left leg - Onset: 05/01/2024 Mild aortic valve regurgitation - Onset: 12/02/2024 Allergies Allergies not reviewed (last reviewed 01/08/2025) NKDA No Known Drug Allergies (Active) OnsetDate: 05/06/2021; Medications Medications not reviewed (last reviewed 01/08/2025) NameDate Source albuterol sulfate HFA 90 mcg/actuation aerosol inhalerINHALE 2 PUFFS BY MOUTH EVERY 6 HOURS KNTOUL96/13/23 filled surescripts ALPRAZolam 0.25 mg tabletTAKE 1 TABLET BY MOUTH 20 MINUTES PRIOR TO SPINAL INJECTION AND THEN UPON ARRIVAL TO MRI01/16/25 filled surescripts amitriptyline 10 mg tabletTITRATE DIRECTED BETWEEN 1 AND 5 TABLETS RUHGIWY09/10/24 renewed Antionette Grace MD atorvastatin 40 mg tabletTAKE 1 TABLET BY MOUTH DAILY12/29/24 filled surescripts baclofen 10 mg tabletTAKE 1 TABLET BY MOUTH EVERY 8 HOURS XLJIIH20/13/23 filled surescripts BinaxNOW COVID-19 Ag Self Test kitTEST DIRECTED TODAY11/02/24 filled surescripts diazePAM 5 mg tabletTAKE 1 TABLET BY MOUTH 1 HOUR BEFORE VUJGUIBRU68/20/24 filled surescripts estradioL 0.025 mg/24 hr weekly transdermal patchAPPLY 1 PATCH TOPICALLY TO THE SKIN 1 TIME A WEEK12/25/24 filled surescripts fluticasone 250 mcg-salmeteroL 50 mcg/dose blistr powdr for inhalationINHALE 1 PUFF BY MOUTH TWICE DAILY06/08/23 filled surescripts ibuprofen 800 mg tabletTAKE 1 TABLET BY MOUTH THREE TIMES DAILY12/16/24 filled surescripts irbesartan 150 mg-hydrochlorothiazide 12.5 mg tabletTAKE 1 TABLET BY MOUTH EVERY DAY IN THE BRUYPMC89/05/24 filled surescripts latanoprost 0.005 % eye dropsINSTILL 1 DROP IN BOTH EYES EVERY PPWVIMF36/11/25 filled surescripts meloxicam 7.5 mg tabletTAKE 1 TABLET BY MOUTH EVERY 12 HOURS MXRYGR35/16/23 filled surescripts mupirocin 2 % topical ointmentAPPLY TOPICALLY IN EACH NOSTRIL TWICE DAILY FOR 5 DAYS07/16/24 filled surescripts ondansetron 4 mg disintegrating tabletDISSOLVE 1 TO 2 TABLETS UNDER THE TONGUE EVERY 4 TO 8 HOURS NEEDED FOR NAUSEA OR VFACKDLP40/18/23 filled surescripts PARoxetine 10 mg tabletTAKE 1 TABLET BY MOUTH EVERY DAY AT FNRZWLX82/13/23 filled surescripts Family HistoryFamily History not reviewed (last reviewed 01/08/2025) Unspecified Relation - Asthma - Hypercholesterolemia Mother - Diabetes mellitus - Hypertensive disorder Father - Heart disease - Hypertensive disorder Brother - Hypertensive disorder - Seizure disorder - Cerebrovascular accident Social HistorySocial History not reviewed (last reviewed 01/08/2025) Substance UseDo you or have you ever smoked tobacco?: Never smokerWhat is your level of alcohol consumption?: NoneDo you use any illicit or recreational drugs?: NoWhat was the date of your most recent tobacco screening?: 4Diet and ExerciseHow many times per week do you exercise?: 1-2 times per weekEducation and OccupationAre you currently employed?: NoWhat is your occupation?: RetiredAdvance DirectiveDo you have an advance directive?: NoDo you have a medical power of immigration attorney?: NoCaffeine use-2 cups/glasses per day, Identified By: Health Kolby Jasso Last Edited: 15 Oct 2022 6:23PM ICD9 Code: V49.89 OnSet Date: 20221015 Last Reviewed Date: 20221015 SnomedCode: [id number] ICD10 Code: Z78.9 Exercises regularly-3 days per week, 20 minutes per session, Identified By: Health Kolby Jasso Last Edited: 15 Oct 2022 6:23PM OnSet Date: 20221015 Last Reviewed Date: 20221015 SnomedCode: [id number] , Type: Chronic Last Edited: 06 Jun 2022 2:00PM Last Reviewed Date: 20220606 SnomedCode: [id number] Never a smoker, Last Edited: 15 Oct 2022 6:23PM OnSet Date: 20221015 Last Reviewed Date: 20221015 SnomedCode: [id number] No illicit drug use, Identified By: Health Note, Kolby Last Edited: 15 Oct 2022 6:23PM OnSet Date: 20221015 Last Reviewed Date: 20221015 SnomedCode: [id number] Retired from employment, Type: Chronic Last Edited: 07 Dec 2022 2:25PM Last Reviewed Date: 20221207 SnomedCode: [id number] Surgical HistorySurgical & Procedure History not reviewed (last reviewed 01/08/2025) Total hip arthroplasty - Total hip replacement Total hysterectomy - Hysterectomy (total) Colonoscopy with biopsy - Colonoscopy (camera from below into colon) delivery - Additional HistoryNone recordedHistory of Present IllnessSC ASC OP HPIReported bypatient.The history and physical review:The history and physical dated 01/08/2025 has been reviewed, the patient has been examined and no change has occurred in the patient's condition since the history and physical was completed. Date of Procedure:01/19/2025 Proposed Procedure/Surgery:IDA Physician Performing the Procedure:Sam Gomezview of SystemsNone recordedPhysical ExamNone recordedProcedure DocumentationNone recordedAssessment/PlanPROVIDER: Sam Schaefer MDLOCATION: [facility] PROCEDURE PERFORMED:1. Diagnostic BILATERAL L4-L5, L5-S1 facet joint nerve block under fluoroscopic guidance #1 PRE-PROCEDURE DIAGNOSIS:1. M47.897 Other spondylosis, lumbosacral region POST-PROCEDURE DIAGNOSIS:Same as above. INDICATION FOR PROCEDURE:Based on the patient s clinical history, physical exam, and all available diagnostic studies, medial branch nerve blocks are appropriate at this time. Patient has tried conservative therapies but moderate to severe pain and functional impairment persist. Therefore, interventional injection therapy is medically necessary for the purpose of controlling pain and improving function. The patient has not had diagnostic medial branch blocks in the past. INFORMED CONSENT:The patient was greeted in the pre-procedural area and identified by name, medical record number, and date of . The indications for, risks, benefits, and alternatives to procedure were discussed in detail, and all questions were answered to the patient s satisfaction. Informed consent was obtained, signed, witnessed, and saved in the medical record. SEDATION: None ANESTHETIC: Local POSITION: Prone PROCEDURE IN DETAIL:The patient was brought into the procedure room and positioned on the fluoroscopy table. All pressure points were checked and comfortably padded with the patient awake. A formal time-out procedure was performed per protocol; name, allergies, site of procedure and procedure title were verified before beginning the procedure. The operative area was prepped and draped in the usual sterile fashion. Using fluoroscopic guidance, the lumbosacral spine was scanned and the C-arm was obliqued to visualize the pedicles on both sides. The skin and subcutaneous tissues overlying the trajectory of needle insertion were anesthetized with 1% lidocaine using a 25-gauge x 1-1/2 inch needle. A 22-gauge x 3.5 inch spinal needle was advanced under serial fluoroscopic guidance along the anesthetized track toward the BILATERAL L4-L5, L5-S1 facet joints. The facet joint medial branch nerve was targeted at the upper end of the pedicle at the junction of the superior articular process and transverse process at the corresponding vertebral body. The L5 dorsal ramus nerve was targeted in the groove at the junction of the S1 articular process and sacral ala. Correct needle position and depth were confirmed on anteroposterior and lateral views. After negative aspiration for blood and CSF, a small volume of Omnipaque 300mg/ml was injected and confirmed spread along the medial branch areas at the indicated level without vascular uptake. After negative aspiration, 0.5mL of 0.75% bupivacaine was injected at each level. The needle was re-styletted and removed. Pressure was held over the needle insertion site and hemostasis was confirmed. POST-PROCEDURE:No immediate post-procedure complications were noted. The patient was monitored for approximately 15 minutes in the post procedure recovery area and discharged home in stable hemodynamic and neurological condition. The patient was given verbal and written post-operative instructions and discharged with a pain diary to keep track of pain relief from this diagnostic injection. My office will call the on the next business day for assessment and coordinate scheduling of subsequent procedures or office re-evaluation, depending on the degree of relief obtained. In case of emergency, the patient understands that they may call my office with questions or seek evaluation in the Emergency Room. Fluoroscopy Time: * secondsImages Taken: 4 Return to Office RAFAEL KAM for Established Patient 15.EST at [address] [facility] on 12/04/2025 at 10:30 AM Antionette Grace MD [address] [place] [address], [phone], [facility] 22:30:24 [facility] [address] [place] [phone] Micki Bean 74yo F 1950 #[id number] 02/02/2025 DearAntionette Grace MD, Micki Bean was seen in our office today 02/02/2025, and a copy of that evaluation is enclosed. Thank you for allowing us to participate in the care of your patient. Please contact us with any questions. Sincerely, Electronically Signed by: SAM SCHAEFER MD Encounter Reason/DateNone recorded 02/02/2025 - 10:25AM - [facility] Inter[facility] Spine ([facility])ProblemsReviewed Problems Mixed hyperlipidemia - Onset: 12/02/2024 Dyslipidemia - Onset: 12/03/2024 Essential hypertension - Onset: 06/16/2024 Arthropathy of lumbar facet joint - Onset: 01/08/2025 Lumbosacral spondylosis - Onset: 01/08/2025 Thoracic back pain - Onset: 05/01/2024 Low back pain - Onset: 05/01/2024 Lumbar radiculopathy - Onset: 01/08/2025 Meralgia paresthetica of left leg - Onset: 05/01/2024 Mild aortic valve regurgitation - Onset: 12/02/2024 Allergies Allergies not reviewed (last reviewed 01/08/2025) NKDA No Known Drug Allergies (Active) OnsetDate: 05/06/2021; Medications Medications not reviewed (last reviewed 01/08/2025) NameDate Source albuterol sulfate HFA 90 mcg/actuation aerosol inhalerINHALE 2 PUFFS BY MOUTH EVERY 6 HOURS WRTTVI96/13/23 filled surescripts ALPRAZolam 0.25 mg tabletTAKE 1 TABLET BY MOUTH 20 MINUTES PRIOR TO SPINAL INJECTION AND THEN UPON ARRIVAL TO MRI01/16/25 filled surescripts amitriptyline 10 mg tabletTITRATE DIRECTED BETWEEN 1 AND 5 TABLETS JYGGDAP33/10/24 renewed Antionette Grace MD atorvastatin 40 mg tabletTAKE 1 TABLET BY MOUTH DAILY12/29/24 filled surescripts baclofen 10 mg tabletTAKE 1 TABLET BY MOUTH EVERY 8 HOURS LKTIQO52/13/23 filled surescripts BinaxNOW COVID-19 Ag Self Test kitTEST DIRECTED TODAY11/02/24 filled surescripts diazePAM 5 mg tabletTAKE 1 TABLET BY MOUTH 1 HOUR BEFORE AHGINEUYT92/20/24 filled surescripts estradioL 0.025 mg/24 hr weekly transdermal patchAPPLY 1 PATCH TOPICALLY TO THE SKIN 1 TIME A WEEK12/25/24 filled surescripts fluticasone 250 mcg-salmeteroL 50 mcg/dose blistr powdr for inhalationINHALE 1 PUFF BY MOUTH TWICE DAILY06/08/23 filled surescripts ibuprofen 800 mg tabletTAKE 1 TABLET BY MOUTH THREE TIMES DAILY12/16/24 filled surescripts irbesartan 150 mg-hydrochlorothiazide 12.5 mg tabletTAKE 1 TABLET BY MOUTH EVERY DAY IN THE GVMWFWS42/05/24 filled surescripts latanoprost 0.005 % eye dropsINSTILL 1 DROP IN BOTH EYES EVERY EXVUFZU73/11/25 filled surescripts meloxicam 7.5 mg tabletTAKE 1 TABLET BY MOUTH EVERY 12 HOURS KRIKUX96/16/23 filled surescripts mupirocin 2 % topical ointmentAPPLY TOPICALLY IN EACH NOSTRIL TWICE DAILY FOR 5 DAYS07/16/24 filled surescripts ondansetron 4 mg disintegrating tabletDISSOLVE 1 TO 2 TABLETS UNDER THE TONGUE EVERY 4 TO 8 HOURS NEEDED FOR NAUSEA OR DLYHIJTS48/18/23 filled surescripts PARoxetine 10 mg tabletTAKE 1 TABLET BY MOUTH EVERY DAY AT ISYZPPC30/13/23 filled surescripts Family HistoryFamily History not reviewed (last reviewed 01/08/2025) Unspecified Relation - Asthma - Hypercholesterolemia Mother - Diabetes mellitus - Hypertensive disorder Father - Heart disease - Hypertensive disorder Brother - Hypertensive disorder - Seizure disorder - Cerebrovascular accident Social HistorySocial History not reviewed (last reviewed 01/08/2025) Substance UseDo you or have you ever smoked tobacco?: Never smokerWhat is your level of alcohol consumption?: NoneDo you use any illicit or recreational drugs?: NoWhat was the date of your most recent tobacco screening?: 4Diet and ExerciseHow many times per week do you exercise?: 1-2 times per weekEducation and OccupationAre you currently employed?: NoWhat is your occupation?: RetiredAdvance DirectiveDo you have an advance directive?: NoDo you have a medical power of immigration attorney?: NoCaffeine use-2 cups/glasses per day, Identified By: Health NoteKolby Last Edited: 15 Oct 2022 6:23PM ICD9 Code: V49.89 OnSet Date: 20221015 Last Reviewed Date: 20221015 SnomedCode: [id number] ICD10 Code: Z78.9 Exercises regularly-3 days per week, 20 minutes per session, Identified By: Health NoteKolby Last Edited: 15 Oct 2022 6:23PM OnSet Date: 20221015 Last Reviewed Date: 20221015 SnomedCode: [id number] , Type: Chronic Last Edited: 06 Jun 2022 2:00PM Last Reviewed Date: 20220606 SnomedCode: [id number] Never a smoker, Last Edited: 15 Oct 2022 6:23PM OnSet Date: 20221015 Last Reviewed Date: 20221015 SnomedCode: [id number] No illicit drug use, Identified By: Health NoteKolby Last Edited: 15 Oct 2022 6:23PM OnSet Date: 20221015 Last Reviewed Date: 20221015 SnomedCode: [id number] Retired from employment, Type: Chronic Last Edited: 07 Dec 2022 2:25PM Last Reviewed Date: 20221207 SnomedCode: [id number] Surgical HistorySurgical & Procedure History not reviewed (last reviewed 01/08/2025) Total hip arthroplasty - Total hip replacement Total hysterectomy - Hysterectomy (total) Colonoscopy with biopsy - Colonoscopy (camera from below into colon) delivery - Additional HistoryNone recordedHistory of Present Illness[facility] HPIReported bypatient.The history and physical review:The history and physical dated 01/08/2025 has been reviewed, the patient has been examined and no change has occurred in the patient's condition since the history and physical was completed. Date of Procedure:02/02/2025 Proposed Procedure/Surgery:MBB#2 Physician Performing the Procedure:Sam Lopez of SystemsNone recordedPhysical ExamNone recordedProcedure DocumentationNone recordedAssessment/PlanPROVIDER: Sam Schaefer MDLOCATION: [facility] PROCEDURE PERFORMED:1. Diagnostic BILATERAL L4-L5, L5-S1 facet joint nerve block under fluoroscopic guidance #2 PRE-PROCEDURE DIAGNOSIS:1. M47.897 Other spondylosis, lumbosacral region POST-PROCEDURE DIAGNOSIS:Same as above. INDICATION FOR PROCEDURE:Based on the patient s clinical history, physical exam, and all available diagnostic studies, medial branch nerve blocks are appropriate at this time. Patient has tried conservative therapies but moderate to severe pain and functional impairment persist. Therefore, interventional injection therapy is medically necessary for the purpose of controlling pain and improving function. The patient underwent medial branch blockade in the past, on 01/19/2025, with 80% improvement in pain and function. INFORMED CONSENT:The patient was greeted in the pre-procedural area and identified by name, medical record number, and date of . The indications for, risks, benefits, and alternatives to procedure were discussed in detail, and all questions were answered to the patient s satisfaction. Informed consent was obtained, signed, witnessed, and saved in the medical record. SEDATION: None ANESTHETIC: Local POSITION: Prone PROCEDURE IN DETAIL:The patient was brought into the procedure room and positioned on the fluoroscopy table. All pressure points were checked and comfortably padded with the patient awake. A formal time-out procedure was performed per protocol; name, allergies, site of procedure and procedure title were verified before beginning the procedure. The operative area was prepped and draped in the usual sterile fashion. Using fluoroscopic guidance, the lumbosacral spine was scanned and the C-arm was obliqued to visualize the pedicles on both sides. The skin and subcutaneous tissues overlying the trajectory of needle insertion were anesthetized with 1% lidocaine using a 25-gauge x 1-1/2 inch needle. A 22-gauge x 3.5 inch spinal needle was advanced under serial fluoroscopic guidance along the anesthetized track toward the BILATERAL L4-L5, L5-S1 facet joints. The facet joint medial branch nerve was targeted at the upper end of the pedicle at the junction of the superior articular process and transverse process at the corresponding vertebral body. The L5 dorsal ramus nerve was targeted in the groove at the junction of the S1 articular process and sacral ala. Correct needle position and depth were confirmed on anteroposterior and lateral views. After negative aspiration for blood and CSF, a small volume of Omnipaque 300mg/ml was injected and confirmed spread along the medial branch areas at the indicated level without vascular uptake. After negative aspiration, 0.5mL of 0.75% bupivacaine was injected at each level. The needle was re-styletted and removed. Pressure was held over the needle insertion site and hemostasis was confirmed. POST-PROCEDURE:No immediate post-procedure complications were noted. The patient was monitored for approximately 15 minutes in the post procedure recovery area and discharged home in stable hemodynamic and neurological condition. The patient was given verbal and written post-operative instructions and discharged with a pain diary to keep track of pain relief from this diagnostic injection. My office will call the on the next business day for assessment and coordinate scheduling of subsequent procedures or office re-evaluation, depending on the degree of relief obtained. In case of emergency, the patient understands that they may call my office with questions or seek evaluation in the Emergency Room. Fluoroscopy Time: * secondsImages Taken: 4 Return to Office RAFAEL KAM for Established Patient 15.EST at [address] [facility] ([place]) on 12/04/2025 at 10:30 AM Antionette Grace MD [address], [address] [place] [address] 12:18:25 Procedures Surgical History Date Name Laterality Status Provider Name and Address Organization Details Recorded Time 06/16/20 Date of Last Mammogram completed Not Available Health Note 05/01/2024 16:08:10 delivery completed Not Available Health Note 05/01/2024 16:08:07 Colonoscopy with biopsy completed Not Available Health Note 05/01/2024 16:08:07 Total hysterectomy completed Not Available Health Note 05/01/2024 16:08:07 Total hip arthroplasty completed Not Available Health Note 05/01/2024 16:08:07 Imaging Results None recorded. Procedure Notes None [...] Not Available Not Available No t Available fluticasone 250 mcg-salmete rol 50 mcg/dose blistr powdr for inhalation INHALE 1 PUFF BY MOUTH TWICE DAILY active Not Available Not Available No t Available paroxetine 10 mg tablet TAKE 1 TABLET BY MOUTH EVERY DAY AT BEDTIME active Not Available Not Available No t Available ketoconazol e 2 % shampoo 12/03 completed Not Available Not Available Not Available irbesartan 150 mg-hydrochl orothiazide 12.5 mg tablet TAKE 1 TABLET BY MOUTH EVERY DAY IN THE MORNING 2024 active Not Available Not Available Not Avai lable ibuprofen 800 mg tablet TAKE 1 TABLET BY MOUTH THREE TIMES DAILY active Not Available Not Available No t Available fluconazole 150 mg tablet TAKE 1 TABLET BY MOUTH NOW. REPEAT IN 2 DAYS 12/03 completed Not Available Not Available Not Available hydrocodone 5 mg-acetamin ophen 325 mg tablet TAKE 1 TABLET BY MOUTH EVERY 6 HOURS NEEDED FOR PAIN active Not Available Not Available No t Available tretinoin 0.025 % topical cream APPLY TOPICALLY TO THE AFFECTED AREA OF FACE EVERY OTHER NIGHT. INCREASE TO EVERY NIGHT TOLERATED active Not Available Not Available No t Available metronidazo le 500 mg tablet TAKE 1 TABLET BY MOUTH TWICE DAILY UNTIL ALL TAKEN 12/03 completed Not Available Not Available Not Available ciprofloxac in 500 mg tablet TAKE 1 TABLET BY MOUTH TWICE DAILY UNTIL ALL TAKEN 12/03 completed Not Available Not Available Not Available meloxicam 7.5 mg tablet TAKE 1 TABLET BY MOUTH EVERY 12 HOURS NEEDED 02/11 completed Not Available Not Available Not Available alprazolam 0.25 mg tablet TAKE 1 TABLET BY MOUTH 20 MINUTES PRIOR TO SPINAL INJECTION AND THEN UPON ARRIVAL TO MRI active Not Available Not Available No t Available estradiol 0.025 mg/24 hr weekly transdermal patch APPLY 1 PATCH TOPICALLY TO THE SKIN 1 TIME A WEEK active Not Available Not Available No t Available amitriptyli ne 10 mg tablet TITRATE DIRECTED BETWEEN 1 AND 5 TABLETS NIGHTLY 2023 active Not Available Not Available Not Avai lable baclofen 10 mg tablet TAKE 1 TABLET BY MOUTH EVERY 8 HOURS NEEDED active Not Available Not Available No t Available cephalexin 500 mg capsule TAKE 2 CAPSULES BY MOUTH NOW THEN 1 FOUR TIMES DAILY UNTIL ALL TAKEN active Not Available Not Available No t Available mupirocin 2 % topical ointment APPLY TOPICALLY TO THE AFFECTED AREA ON HANDS NEEDED 04/18 completed Not Available Not Available Not Available albuterol sulfate HFA 90 mcg/actuati on aerosol inhaler INHALE 2 PUFFS BY MOUTH EVERY 6 HOURS NEEDED active Not Available Not Available No t Available ketoconazol e 2 % topical cream APPLY TOPICALLY TO THE AFFECTED AREA OF FACE TWICE DAILY NEEDED FOR RASH 12/03 completed Not Available Not Available Not Available ondansetron 4 mg disintegrat ing tablet DISSOLVE 1 TO 2 TABLETS UNDER THE TONGUE EVERY 4 TO 8 HOURS NEEDED FOR NAUSEA OR VOMITING active Not Available Not Available No t Available diazepam 5 mg tablet TAKE 1 TABLET BY MOUTH 1 HOUR BEFORE PROCEDURE active Not Available Not Available No t Available chlorhexidi ne gluconate 0.12 % mouthwash SWISH AND SPIT 15ML BY MOUTH TWICE DAILY FOR 8 DAYS active Not Available Not Available No t Available BinaxNOW COVID-19 Ag Self Test kit TEST DIRECTED TODAY active Not Available Not Available No t Available Vitals Date Recorded Body height Provider Name an d Address Organization Details Last Updated DateTime 01/08/2025 147.955 cm Laura Yung [facility] 01/08/2025 10:50:31 Social History Question Answer Notes LastModified by [employer] ion Details LastModified Time Tobacco Smoking Status [facility] 11:00:00 Do You Have An Advance Directive? No [email or web address] Information not available 05/01/2024 What Is Your Level Of Caffeine Consumption? Moderate [email or web address] Information not available 05/01/2024 How Many Times Per Week Do You Exercise? 1-2 Times Per Week [email or web address] Information not available 05/01/2024 Do You Have A Medical Power Of Tape Maker? No [email or web address] Information not available 05/01/2024 What Was The Date Of Your Most Recent Tobacco Screening? 05/01/2024 [email or web address] Information not available 05/01/2024 What Is Your Relationship Status? [email or web address] Information not available 05/01/2024 Sex: Unknown Functional Status Question Answer Note LastModified by [employer] ion Details LastModified Time Do you use any illicit or recreational drugs? No [email or web address] Information not available 05/01/2024 What is your level of alcohol consumption? None [email or web address] Information not available 05/01/2024 Are you currently employed? No [email or web address] Information not available 05/01/2024 What is your occupation? Retired [email or web address] Information not available 05/01/2024 What is your exercise level? Occasional [email or web address] Information not available 05/01/2024 Mental Status None recorded. Family History Relationship Description Onset Age of this Age Resolved Age Notes LastModified by Organization Details LastModified Time Unspecified Relation Asthma [email or web address] Not available 16:08:06 Unspecified Relation Hypercholest erolemia [email or web address] Not available 2023 16:08:06 Mother Diabetes mellitus [email or web address] Not available 2023 16:08:06 Mother Hypertensive disorder [email or web address] Not available 2023 16:08:06 Father Heart disease [email or web address] Not available 2023 16:08:06 Father Hypertensive disorder [email or web address] Not available 2023 16:08:06 Brother Hypertensive disorder [email or web address] Not available 2023 16:08:06 Brother Seizure disorder [email or web address] Not available 2023 16:08:06 Brother Cerebrovascu lar accident [email or web address] Not available 04/2024 16:08:06 Medical History Condition Response Anxiety Disorder N Diabetes N Bleeding Disorder N Attention-deficit Hyperactivity Disorder N High Blood Pressure Y Arthritis N Hyperlipidemia N Cancer N Thyroid Problems N Stroke N COPD Y Depression N Asthma N Seizures N Anemia N Heart Disease N Fibromyalgia N Osteoporosis N Kidney Disease N Gynecological History Statement/Question Response If Post Menopausal, Age at Menopause 49 Age at Menarche 15 Date of Last Mammogram 06/16/2023 Obstetrics History GPAL:G 0 P 0 0 0 0 Immunizations Vaccine Type Date Status Note Provider Nam e and Address Organization Details Recorded Time Influenza, high-dose, quadrivalent, PF 3 completed Rose Marie vargas, [facility] 05/01/2024 16:05:05 Influenza, high-dose, quadrivalent, PF 1 completed Rose Marie vargas, [facility] 05/01/2024 16:05:05 Influenza, high-dose, quadrivalent, PF 2 [facility] 16:05:05 COVID-19, mRNA, LNP-S, PF, 30 mcg/0.3 mL dose 1 completed [facility] 16:05:05 COVID-19, mRNA, LNP-S, PF, 30 mcg/0.3 mL dose 1 completed [facility] 16:05:05 COVID-19, mRNA, LNP-S, PF, 30 mcg/0.3 mL dose 1 completed Rose Marie Guerrero [facility] 05/01/2024 16:05:05 COVID-19, mRNA, LNP-S, PF, 30 mcg/0.3 mL dose, nicki-sucrose 2 completed Rose Marie Guerrero [facility] 05/01/2024 16:05:05 COVID-19, mRNA, LNP-S, bivalent, PF, 50 mcg/0.5 mL or 25mcg/0.25 mL dose 3 completed Rose Marie Guerrero [facility] 05/01/2024 16:05:05 RSV, bivalent, protein subunit RSVpreF, diluent reconstituted, 0.5 mL, PF 3 completed Rose Marie Guerrero [facility] 05/01/2024 16:05:05 COVID-19, mRNA, LNP-S, PF, 50 mcg/0.5 mL 3 completed Rose Marie Guerrero [facility] 05/01/2024 16:05:05 Influenza, split virus, trivalent, preservative 3 completed Rose Marie Guerrero [facility] 05/01/2024 16:05:05 Influenza, split virus, trivalent, preservative 1 completed Rose Marie Guerrero [facility] 05/01/2024 16:05:05 Influenza, split virus, trivalent, preservative 2 completed [facility]/01[facility] 16:05:05 RSV-MAb 3 completed Rose Marie vargas, [facility] 05/01/2024 16:05:05 Past Encounters Encounter ID Performer Location Encounter Start Date Encounter Closed Date Diagnosis/Indication Diagnosis SNOMED-CT Code Diagnosis ICD10 Code Diagnosis Note [id number] Antionette Grace MD [address] ([place]) [address] [place] [address],[address] [place] [address] 05/01/2024 15:45:21 05/01/2024 17:26:20 Meralgia paresthetica of left leg [id number] 28345 G57.12 Burning pain left anterior lateral thigh since the day of having her left hip replacemen t. Ibuprofen does not help.A: Aggravated by light touch consistent with meralgia parestheti Bull:1. Explained neuropathy pain versus somatic pain and the need for a neuropathi c agent2. Start with amitriptyl ine at bedtime titrate to find most effective dose. If no response then would try gabapentin . 3. May use 2 Tylenol and 3 ibuprofen 2-3 times a day as well. Thoracic back pain [id number] M54.6 A: Pain right at the junction of the 12th rib and the paraspinal LS muscles. Pain present on the bottom of the 12th rib as well as on the lateral wall of the paraspinal LS muscles.Un able to find way to stretch this. And [facility]. Routine x-rays of the thoracic spine, if further pedicles are normal, then would recommend physical therapy2. Arrange physical therapy in [facility]. Patient and well see who we can get in quickly and we will send a referral Low back pain [id number] M54.50 Pain lumbosacra l junction. Negative lumbar Spurling. SLR negative. Aggravated by sitting or standing too longPlan: 1. Routine x-rays lumbar sacral 2. Trial of physical therapy 3. If no improvemen t by when she sees her hip surgeon Dr. Albert Soliman, then he can assess and if she fails PT she would be a candidate for MRI lumbar sacral. [id number] ASHLEY GUTIERRES, RETAIL TEAM MEMBER-C [address] [facility] ([place]) [address] [place] [address] 12/03/2024 10:38:53 12/03/2024 13:30:54 Mild aortic valve regurgitation [id number] I35.1 Essential hypertension 29076088 I10 Dyslipidemia 848613995 E 78.5 [id number] Sam Schaefer MD [address] [facility] ([place]) [address] [place] [address] 01/08/2025 09:49:55 01/08/2025 11:23:59 Arthropathy of lumbar facet joint 226002895 M47.816 [id number] Sam Schaefer MD [facility] [place] [address] [place] [address], 2[address] [place] [address] 01/19/2025 10:09:16 01/20/2025 16:43:14 [id number] Sam Schaefer MD [facility] [place] [address] [place] [address], 2[address] [place] [address] 02/02/2025 10:06:02 02/04/2025 13:45:13 [id number] Sam Schaefer MD [facility] [place] [address] [place] [address], 2[address] [place] [address] 2025 10:16:32 02/16/2025 13:10:06 [id number] Sam Schaefer MD [facility] [place] [address] [place] [address], 2[address] [place] [address] 02/25/2025 09:54:56 03/03/2025 12:54:00 Health Concerns Section Related Observation LastModified by Organization Detai ls LastModified Time None Recorded Concern Status LastModified by Organization Details LastModified Time None Recorded Advance Directives Directive N: Payers Insurance Date Sequence Insurance Name Policy Number Policy [place] Covered Member ID [place] Member ID Guarantor Name 04/16/2025 1 [employer] (MEDICARE REPLACEMENT/ ADVANTAGE - PPO) [id number] Bebe Bean [id number] Micki Bean Notes Date Note Type Note Provider Name and Address Organization Details Recorded Time 01/19/2025 text/html [facility] HPIReported bypatient.The history and physical review:The history and physical dated 01/08/2025 has been reviewed, the patient has been examined and no change has occurred in the patient's condition since the history and physical was completed. Date of Procedure:01/19/20 Proposed Procedure/Surgery: MBB Physician Performing the Procedure:Sam Schaefer MD [address] [place] [address], [phone], [facility] 01/19/2025 11:02:33 02/02/2025 text/html [facility] HPIR[facility] bypatient.The history and physical review:The history and physical dated 01/08/2025 has been reviewed, the patient has been examined and no change has occurred in the patient's condition since the history and physical was completed. Date of Procedure:02/03/20 Proposed Procedure/Surgery: MBB#2 Physician Performing the Procedure:Sam Schaefer MD [address] [place] [address], [phone], [facility] 02/02/2025 11:28:57 2025 text/html [facility] HPIR[facility] bypatient.The history and physical review:The history and physical dated 01/08/2025 has been reviewed, the patient has been examined and no change has occurred in the patient's condition since the history and physical was completed. Date of Procedure:02/12/20 Proposed Procedure/Surgery: [facility] Physician Performing the Procedure:Sam Schaefer MD [address] [place] [address], [phone], [facility] 2025 11:44:47 02/25/2025 text/html [facility] HPIR[facility] bypatient.The history and physical review:The history and physical dated 01/08/2025 has been reviewed, the patient has been examined and no change has occurred in the patient's condition since the history and physical was completed. Date of Procedure:02/26/20 25 Proposed Procedure/Surgery: RFA Physician Performing the Procedure:Sam Schaefer MD [address] [place] [address], [phone], [facility] 02/25/2025 11:40:14 OBGyn Episode No OBEpisode recorded.
--- OUTSIDE RECORDS SUMMARY | 2025-06-09 08:59 | XMS_ITS | Data Portability ---
Author Organization [place] [facility], Main Office Address [address] [place] [address] Care Team Providers Care Fence Installer Name Role Phone EVELIO KINNEY Primary Care Provider Assessment Encounter Date Assessment [...] in ED. Cont f/u with specialists at [facility] as per schedule. F/u in 1-2 months. Pt to bring copy of her MRI results. [email or web address] Not available 11/07/2023 15:55:25 Plan of Treatment Reminders Order Date Submit Date Provider Last Modified By Organization Details Last Modified Time Details Appointments None recorded. Lab None recorded. Referral None recorded. Procedures None recorded. Surgeries None recorded. Imaging None recorded. Medication Orders baclofen 10 mg tablet 2022 023 [facility] #24857, [address] [place], [place], [id number], 3 15:48:08 meloxicam 7.5 mg tablet 2022 023 [facility] #99272, [address] [place], [place], [id number], 3 15:48:11 lidocaine 5 % topical patch 2022 023 [facility] #68560, [address] [facility], [place], [place], [id number], 3 15:48:09 irbesartan 150 mg-hydrochl orothiazide 12.5 mg tablet 2022 023 [facility] #52842, [address] [facility], [place], [place], [id number], 3 15:48:14 paroxetine 10 mg tablet 2022 023 [facility] #14138, [address] [facility], [place], [place], [id number], 3 15:48:09 fluticasone 250 mcg-salmete rol 50 mcg/dose blistr powdr for inhalation 2022 023 [facility] #37288, [address] [facility], [place], [place], [id number], 3 15:48:12 albuterol sulfate HFA 90 mcg/actuati on aerosol inhaler 2022 023 [facility] #86483, [address] [facility], [place], [place], [id number], 3 15:48:13 fluticasone propionate 50 mcg/actuati on nasal spray,suspe nsion 2022 023 [facility] #52191, [address] [facility], [place], [place], [id number], 3 15:48:12 atorvastati n 40 mg tablet 2022 023 [facility] #70233, [address] [facility], [place], [place], [id number], 3 15:48:13 Patient TargetsNo targets recorded. Patient InstructionsNo instructions recorded. Reason for Referral None Reported. Results Created Date Observation Date Name Description Value Unit Range Abnormal Flag Note LastModifiedBy Organization Detail LastModifiedTime 06/28/20 21 06/17/2021 XR, finge r(s) No observ ation record ed. [id number] Not Available 01/24/2023 23:29:17 07/19/20 21 07/19/2021 XR, hand, 3 or more view No observ ation record ed. [email or web address] [id number] [place] [address], [place], [address], 11/07/2023 15:35:26 Result Notes None recorded. Problems Name Problem SNOMED Code Status Onset Date Resolution Date Notes Provider Name and Address Organization Details Recorded Time Hypertensive disorder 35590725 Active 2022 Evelio Kinney MD [address], [place], [address], [facility] 3 15:38:46 Hyperlipidemia 40491200 Active 2022 Evelio Kinney MD [address], [place], [address], [facility] 3 15:39:32 Seasonal allergic rhinitis 670126550 Active 2022 Evelio Kinney MD [address], [address], [place], [address], [facility] 3 15:40:48 Chronic obstructive pulmonary disease 04530957 Active 2022 Evelio Kinney MD [address], [place], [address], [facility] 3 15:41:24 Menopausal flushing 515785165 Active 2022 Evelio Kinney MD [address], [place], [address], [facility] 3 15:42:38 Chronic low back pain 379855564 Active 2022 Evelio Kinney MD [address], [place], [address], [facility] 15:43:44 Problem Notes None recorded. Procedures Surgical History Date Name Laterality Status Provider Name and Address Organization Details Recorded Time section completed Not Available [facility] 01/24/2023 23:27:44 total replacement of hip completed Not Available [facility] 01/24/2023 23:27:44 Hysterectomy completed Not Available [facility] 01/24/2023 23:27:44 Imaging Results None recorded. Procedure Notes None recorded. Medical Equipment None Reported. Medications Name Sig Start Date Stop Date Status Note LastModified by Organization Details LastModified Time latanoprost 0.005 % eye drops INSTILL 1 DROP IN BOTH EYES EVERY EVENING active Not Available Not Available No t Available atorvastati n 40 mg tablet TAKE 1 TABLET BY MOUTH EVERY DAY 2024 active Not Available Not Available Not [...] propionate 50 mcg/actuati on nasal spray,suspe nsion Kemmerer 2 sprays every day by intranasa l route as needed for 90 days. 2022 active Not Available Not Available Not Avai lable estradiol 11/07 completed Not Available Not Available Not Available metoprolol succ 50 mg-hydrochl orothiazide 12.5 mg tablet,ext. rel 24 hr Take 1 tablet every day by oral route. 11/07 completed Not Available Not Available Not Available Vitals Date Recorded Body height Provider Name an d Address Organization Details Last Updated DateTime 07/05/2021 147.32 cm Not Available [facility] 23:27:53 Date Recorded Body mass index (BMI) Body height Body weight Provider Name and Address Organization Details Last Updated DateTime 07/19/2021 28.8 kg/m2 147.32 cm 75716.75 g Not Available [facility] 01/24/2023 23:27:53 Date Recorded Body height Body mass index (BMI) Body weight Body temperature Heart rate Respiratory rate Oxygen saturation Oxygen saturation in Arterial blood by Pulse oximetry Systolic And Diastolic Provider Name and Address Organization Details Last Updated DateTime 147.32 cm 25.3 kg/m2 18591.0 3 g 98.1 [degF] 88 /min 16 /min 99 % 99 % 122/62 mm[Hg] Sly Ashraf Consuelo [facility] 15:29:48 Social History Question Answer Notes LastModified by Organizat ion Details LastModified Time Tobacco Smoking Status Never Smoker Not Available [facility] 01/24/2023 23:27:25 Do You Have An Advance Directive? Yes Information not available 11/07/2023 Is Blood Transfusion Acceptable In An Emergency? [...] Was Ill? No Information not available 11/07/2023 What Type Of Diet Are You Following? REGULAR Information not available 11/07/2023 Have There Been Any Changes To Your Family Or Social Situation? No Information no t available 11/07/2023 Where Do You Live? SingleLevelHouse Information not available 11/07/2023 Do You Have A Medical Power Of Rigger Supervisor? Yes Information not available 11/07/2023 How Many [...] Social Media? Yes Information not available 11/07/2023 Have You Recently Traveled Abroad? No Information not available 11/07/2023 Are You Currently In School? No Information not available 11/07/2023 Sex: Female Functional Status Question Answer Note LastModified by Organizat ion Details LastModified Time What is your level of alcohol consumption? Occasional [id number] Information not available 01/24/2023 Are you currently employed? No Information not available 11/07/2023 Are you able to care for yourself? Yes Information not available 11/07/2023 Mental Status Question Answer Note LastModified by Organization D etails LastModified Time Do you feel stressed (tense, restless, nervous, or anxious, or unable to sleep at night)? [id number] Information not available 11/07/2023 Family History Relationship Description Onset Age of this Age Resolved Age Notes LastModified by Organization Details LastModified Time Father No current problems or disability Not available 11/07 15:30:58 Mother No current problems or disability Not available 11/07 15:30:58 Notes:Paternal Parents had h eart disease. Medical History Condition Response BLINDNESS N RHEUMATIC FEVER N BLADDER PROBLEMS N KIDNEY STONES N CARPAL TUNNEL SYNDROME N MRSA N OTHER # 1 N POLIO N LUNG DISEASE/DISORDER N HISTORY OF DRUG ABUSE N RADIATION / CHEMOTHERAPY N COPD N Other # 2 N ANKLE PAIN N SPORTS INJURY N BLOOD DISEASES N SURGERY N EAR OR HEARING PROBLEMS N MUMPS N SCHIZOPHRENIA N SHINGLES N FEMALE PROBLEMS / INFECTIONS N SHOULDER PAIN N DEPRESSION (INCLUDING POST ) N BOWEL PROBLEMS N FAILED BACK SYNDROME N STROKE/TIA N THYROID DISEASE N ULCERS N KNEE PAIN N BENIGN PROSTATIC HYPERPLASIA N MEASLES N CERVICALGIA N TB SKIN TEST N HYPOTENSION N MYOCARDIAL INFARCTION N PARAPELGIA N OBESITY N GERD/NAUSEA N ANEURYSM N URINARY/BLADDER/KIDNEY PROBLEMS N CORONARY ARTERY DISEASE (CAD) N MENIERE'S DISEASE N Do you have Advance directive? N ADDICTION CONCERNS N ENDOMETRIOSIS N USE OF BLOOD THINNERS N SKIN PROBLEMS N EMPHYSEMA N GASTROINTESTINAL DISORDER N PERIPHERAL ARTERY DISEASE N MUSCLE,JOINT OR BONE PROBLEMS N DVT N STOMACH ULCERS N GASTROINTESTINAL BLEEDING N BLOOD CLOTS N ASTHMA N CATARACTS N Abdominal Pain N USE OF NSAIDS N CONCUSSION OR SPINAL TRAUMA N ERECTILE DYSFUNCTION N ARTERIAL INSUFFICIENCY N GI PROBLEMS N CHF N Low Testosterone N NEUROPATHY N INFERTILITY N AIDS/HIV N FRACTURES N CHEMOTHERAPY / RADIATION N VISION/EYE PROBLEMS N LIVER DISEASE N HYPERTENSION N ELBOW PAIN N TOURETTE'S N Metal allergy N ANXIETY DISORDER N BLOOD TRANSFUSION N ANEMIA/BLOOD DISORDER N CHRONIC EAR INFECTIONS N BIPOLAR DISORDER N BRONCHITIS N OSTEOARTHRITIS N TUBERCULOSIS N GLAUCOMA N FOOT PROBLEM N HEART VALVE DISORDERS N DIVERTICULITIS N SLEEP APNEA N CHICKENPOX N SOFT TISSUE INJURY N BACK INJECTIONS N ALLERGIES/HAYFEVER N INFECTIOUS DISEASE N PROSTATE N HEART ARRHYTHMIA N INSOMNIA N ESRD N RHEUMATOID ARTHRITIS N HIGH CHOLESTEROL / HYPERLIPIDEMIA N HYPERTHYROIDISM N EYE PROBLEMS N PVD N EATING DISORDER N EDEMA N CHRONIC PAIN SYNDROME N CONSTIPATION N CAROTID BLOCKAGE N BACK / NECK PROBLEMS N HAVE YOU BEEN HOSPITALIZED OR SEEN IN [facility] IN THE PAST YEAR ? N ATHEROSCLEROSIS [...] N PAIN N HERPES N DEMENTIA N SEIZURES/EPILEPSY N HEADACHES/MIGRAINES N VASCULAR DISEASE N PACEMAKER N HIP PAIN N Blood Disorder N DIZZINESS N HEAD TRAUMA OR INJURY N KIDNEY DISEASE N HEART DISEASE/HEART PROBLEMS N SCARLET FEVER N MULTIPLE SCLEROSIS N MENTAL DISORDER/ILLNESS N DEVELOPMENTAL OR BEHAVIORAL DISORDERS N NEUROPSYCHOLOGICAL N CARDIAC ARRHYTHMIA N CANCER: SPECIFY N PNEUMONIA N ANESTHESIA COMPLICATIONS N Gall Stones N ATRIAL FIBRILLATION N PULMONARY EMBOLISM N AUTOIMMUNE DISEASE N Gynecological HistoryNo gynecological history recorded. Obstetrics History GPAL:G 5 P 0 0 0 0 Past Encounters Encounter ID Performer Location Encounter Start Date Encounter Closed Date Diagnosis/Indication Diagnosis SNOMED-CT Code Diagnosis ICD10 Code Diagnosis Note [id number] Freddy Witt MD [facility] [place] [address] [place] [address] 07/05/2021 00:00:00 07/05/2021 13:24:46 [id number] Freddy Witt MD [facility] [place] [address] [place] [address] 07/19/2021 00:00:00 07/19/2021 12:01:03 [id number] Evelio Kinney MD [facility] [address] [place] [address] 11/07/2023 15:17:21 11/07/2023 16:02:36 Hypertensive disorder 96769359 I10 Hyperlipidemia 75730227 E78.5 Seasonal a llergic rhinitis 088440176 J30.2 Chronic ob structive pulmonary disease 18045154 J44.9 Menopausal flushing 1984 67632 N95.1 Chronic low back pain 27 8849959 M54.50 Health Concerns Section Related Observation LastModified by Organization Detai ls LastModified Time None Recorded Concern Status LastModified by Organization Details LastModified Time None Recorded Advance Directives Directive Y: Payers Insurance Date Sequence Insurance Name Policy Number Policy Montgomery Covered Member ID Montgomery Member ID Guarantor Name 08/31/2023 1 [facility] (MEDICARE REPLACEMENT/A DVANTAGE - PPO) [id number] Bebe Bean [id number] Micki Bean 12/15/2023 1 [employer] (MEDICARE REPLACEMENT/A DVANTAGE - PPO) [id number] Micki Bean [id number] Micki Bean Notes Date Note Type Note Provider Name and Address Organization Details Recorded Time 11/07/2023 text/html New pt visit:73 yo F is here to establish her care. Pt was seeing PCP at [place], [place] in the past.Doing overall well. Pt is f/u with Cardio at [facility] and is on meds by them. Pt has chronic low back pain and is f/u with phlebotomy specialist at [facility]. Pt has taken few epidural injections in [...] FH and SH reviewed. Evelio Kinney MD [address] [place] [address], [place] [address], [place], [address], [place] [facility] 11/07/2023 15:57:37 OBGyn Episode No OBEpisode recorded.
--- OUTSIDE RECORDS SUMMARY | 2025-06-09 09:00 | XMS_ITS | Referral Summary ---
Author Organization [facility] Address [facility] [place] [address] Care Team Providers Care Mandolin Repairer Name Role Phone Bell Amador NP Primary Care Provider [phone] Allergies Active Allergy Reactions Criticality Noted Date Comments Metronidazole Swelling Medium 03/18/2015 Medications venlafaxine XR (EFFEXOR-XR) 37.5 mg 24 [...] once a week 12 patch 4 06/26/20 24 Active Active Problems No known active problems Immunizations Immunization Administration Dates Next Due Influenza, Quadrivalent, Hig h Dose, Preservative Free, Intrr 08/16/2021 Influenza, Trivalent, IM (MDV) 09/05/2021 Social History Tobacco Use Types Packs/Day Years Used Date Smoking Tobacco: Never Tobacco Cessation:Counseling Given: Not Answered AUDIT-C Answer Date Recorded Q1: How often do you have a drink containing alc ohol? Never 02/06/2025 Average Number of Drinks Not on file 025 Frequency of Binge Drinking Not on file 01/24 Personal Safety Answer Date Recorded Have you ever been in or are you currently in a harmful physical or emotional relationship or is someone making you feel afraid or unsafe? Denies 02/06/2025 Comments No Sex and Gender Information Value Date Recorded Sex Assigned at Not on file Legal Sex Female 12:35 PM CDT Gender Identity Not on file Sexual Orientation Not on file Last Filed Vital Signs Vital Sign Reading Time Taken Comments Blood Pressure 102/71 02/06/2025 11:05 AM CDT Pulse 69 02/06/2025 11:05 AM CDT Temperature 36.1 C (97 F) 02/06/2025 10:45 AM CDT Respiratory Rate 14 02/06/2025 11:05 AM CDT Oxygen Saturation 95% 02/06/2025 11:05 AM CDT Inhaled Oxygen Concentration - - Weight 49.9 kg (110 lb) 02/06/2025 9:48 AM CDT Height 147.3 cm (4' 10) 02/06/2025 9:48 AM CDT Body Mass Index 22.99 02/06/2025 9:48 AM CDT Plan of Treatment Not on file Medical Devices Implanted Type Area Warehouse Processor Device Identifier Shelf Expiration Date Model / Serial / Lot Chapito Hip Replacements Bilateral : Hip Insurance T MEDICARE T MEDICARE AET MEDICARE Advance Directives For more information, please contact: [phone] * Full Code (Latest Code Status on File) Date Activated Date Inactivated Comments 02/06/2025 9:31 AM 02/06/2025 3:29 PM Care Teams Mandolin Repairer Relationship Specialty Start Date End Date Bell Amador NP [address] [facility] [address] [place] [address] PCP - General Internal Medicine 01/27/25
--- OUTSIDE RECORDS SUMMARY | 2025-06-09 09:00 | XMS_ITS | Clinical Summary ---
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
--- OUTSIDE RECORDS SUMMARY | 2025-06-09 09:00 | XMS_ITS | Clinical Summary ---
Author Organization [facility] Address [facility] [place] [address] Care Team Providers Care Neurodiagnostic Technologist Name Role Phone Bell Amador NP Primary Care Provider [phone] Allergies Active Allergy Reactions Criticality Noted Date [...] History Date Comments High blood pressure Asthma Pancreas cyst Family History Medical History Relation Name Comments [...] 02/06/2025 9:48 AM CDT Plan of Treatment Health Maintenance Due Date Last Done Comments Colon Cancer Screening-Colonoscopy 1950 Depression Screening 1950 Hepatitis C Screening 1950 DTaP/Tdap/Td Vaccine (1 - Tdap) 02/10/1963 Hepatitis B Screening 02/10/1970 Well Visit 65+ 02/10/2017 Pneumococcal vaccine 65+ (2 of 2 - PPSV23) 12/21/2017 10/26/2017 Osteoporosis Screening-Bone Density Scan 08/19/2021 08/19/2019 Covid-19 Vaccine (2023-2 5 season) 2024 04/26/2022, 08/21/2021, 01/25/2021, Additional history exists Breast Cancer Screening-Mammogram 11/21/2024 11/21/2023, 07/24/2022, 07/21/2022, Additional history exists Influenza Vaccine (Season Ended) 2025 09/05/2021, 08/16/2021, 08/06/2019, Additional history exists Fall Risk Assessment 02/06/2026 02/06/2025 Zoster Vaccine Completed 05/28/2019, 0401/2019, 03/25/2012 Medical Devices Implanted Type Area Business Continuity Manager Device Identifier Shelf Expiration Date Model / Serial / Lot Chapito Hip Replacements Bilateral : Hip Insurance [employer] MEDICARE T MEDICARE T MEDICARE Advance Directives For more information, please contact: [phone] * Full Code (Latest Code Status on File) Date Activated Date Inactivated Comments 02/06/2025 9:31 AM 02/06/2025 3:29 PM Care Teams Neurodiagnostic Technologist Relationship Specialty Start Date End Date Yakel, Bell A., RUBY ON RAILS ENGINEER [address] [place] [address], [place] [id number] PCP - General Internal Medicine 01/27/25
--- OUTSIDE RECORDS SUMMARY | 2025-06-09 09:00 | XMS_ITS | Patient Health Record ---
Author Organization [facility] Address [address] [place] [address] Care Team Providers Care Afternoon Babysitter Name Role Phone Carlin Booker Unavailable [phone] Reason For Referral No Information Plan Of Treatment No Information Insurance Providers Payer Name Payer Address Payer Phone Subscriber Number Group Number Insured Name Patient Relationship to Insured Coverage Start Date Coverage End Date [facility] [address] [place] [phone] [id number] ALKA OWENS Spouse - patient is the spouse of the insured
== END 2025-06-09 08:49 | disposition home or self-care (01) ==
LOC: ANHAUDIO 08:48
PROVIDERS: PCP Clinical Nurse Specialist; Visit Provider Otolaryngology
DX: H90.41 Sensorineural hearing loss, unilateral, right ear, with unrestricted hearing on the contralateral side (principal)
CPT/HCPCS: 92557; 92567

== ENCOUNTER 2025-09-04 08:24 | Outpatient (CLI) | payer MEDICARE, SELFPAY ==
--- OUTSIDE RECORDS SUMMARY | 2025-09-04 08:29 | XMS_ITS | Clinical Summary ---
Author Organization [facility] Address [facility] [address] Care Team Providers Care Licensed Clinical Psychologist Name Role Phone Bell Amador NP Primary Care Provider [phone] Laura Evans MD Unavailable [phone] Allergies Active Allergy Reactions Criticality Noted Date [...] puffs every 4 (four) hours as needed 08/29/20 22 Active aspirin 81 mg enteric coated [...] nightly Activ e estradioL (CLIMARA) 0.025 mg/24 hrIndications:Rout ine gynecological examination Apply 1 patch weekly 12 patch 3 07/07/20 25 Active Active Problems No known active problems Encounters Date Type Department Care Team Description 07/07/2025 10:45 AM CDT Office Visit [facility] [address] [facility] [address] [place] [address] Génesis Metz NP Routine gynecological examination (Primary Dx) from Last 3 Months Immunizations Immunization Administration Dates Next Due Influenza, [...] have a drink containing alc ohol? Never 07/07/2025 Average Number of Drinks Not on file 025 Frequency of Binge Drinking Not on file 06/26 Personal Safety Answer Date Recorded Have you [...] 4 4 Date Outcome GA Total Labor Labor/3rd Weight Sex Type Anes PTL Florencia A1 A5 Name Clin 1970 Term F Vaginal Livin g Keegan ine 1976 Term M C-Secti on Livin g Colin 1984 Term F C-Secti on Livin g [place] 1985 Term M C-Secti on Livin g Nickol as Last Filed Vital Signs Vital Sign Reading Time Taken Comments Blood Pressure 100/74 07/07/2025 10:52 AM CDT Pulse 69 02/06/2025 11:05 AM CDT Temperature 36.1 C (97 F) 02/06/2025 10:45 AM CDT Respiratory Rate 14 02/06/2025 11:05 AM CDT Oxygen Saturation 95% 02/06/2025 11:05 AM CDT Inhaled Oxygen Concentration - - Weight 53.1 kg (117 lb) 07/07/2025 10:52 AM CDT Height 147.3 cm (4' 10) 02/06/2025 9:48 AM CDT Body Mass Index 24.45 02/06/2025 9:48 AM CDT Plan of Treatment Health Maintenance Due Date Last Done Comments Colon Cancer Screening-Colonoscopy 1950 Depression Screening 1950 Hepatitis C Screening 1950 DTaP/Tdap/Td Vaccine (1 - Tdap) 02/10/1963 Hepatitis B Screening 02/10/1970 Pneumococcal vaccine 65+ (2 of 2 - PPSV23, PCV20, or PCV21) 12/21/2017 10/26/2017 Osteoporosis Screening-Bone Density Scan 08/19/2021 08/19/2019 Breast Cancer Screening-Mammogram 11/21/2024 11/21/2023, 07/24/2022, 07/21/2022, Additional history exists Covid-19 Vaccine (2024-2 6 season) 2025 04/26/2022, 08/21/2021, 01/25/2021, Additional history exists Influenza Vaccine (#1) 2025 , 10/09/2022, 09/05/2021, Additional history exists Fall Risk Assessment 02/06/2026 02/06/2025 Well Visit 65+ 07/07/2026 07/07/2025 Zoster Vaccine Completed 05/28/2019, 01/2019, 03/25/2012 Medical Devices Implanted Type Area Franchise Business Consultant Device Identifier Shelf Expiration Date Model / Serial / Lot Chapito Hip Replacements Bilateral : Hip Insurance T MEDICARE T MEDICARE T MEDICARE Advance Directives For more information, please contact: [phone] * Full Code (Latest Code Status on File) Date Activated Date Inactivated Comments 02/06/2025 9:31 AM 02/06/2025 3:29 PM Care Teams Licensed Clinical Psychologist Relationship Specialty Start Date End Date Bell Amador DRY HOUSE WORKER [address] [facility] [address] [place] [address] PCP - General Internal Medicine 01/27/25 Laura Evans MD [address] [facility] [address] [place] [address] Consulting Physician Obstetrics and Gynecology 07/07/25
--- OUTSIDE RECORDS SUMMARY | 2025-09-04 08:29 | XMS_ITS | Clinical Summary ---
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
--- OUTSIDE RECORDS SUMMARY | 2025-09-04 08:29 | XMS_ITS | Patient Health Record ---
Author Organization [facility] Address [address] [place] [address] Care Team Providers Care Solar Thermal Technician Name Role Phone Carlin Booker Unavailable [phone] Reason For Referral No Information Plan Of Treatment No Information Insurance Providers Payer Name Payer Address Payer Phone Subscriber Number Group Number Insured Name Patient Relationship to Insured Coverage Start Date Coverage End Date [facility] [address] [place] [phone] [id number] ALKA OWENS Spouse - patient is the spouse of the insured
[2025-09-04 19:15] LABS: Alanine Aminotransferase 29 U/L (6-35); Albumin Level 3.6 g/dL (3.5-5.1); Alkaline Phosphatase 107 U/L (38-126); Anion Gap 7 mmol/L (4-12); Aspartate Amino Transferase 35 U/L (14-36); Bilirubin,Total 0.4 mg/dL (0.2-1.3); Blood Urea Nitrogen 14 mg/dL (7-17); Calcium 11.0 mg/dL (8.4-10.2); Carbon Dioxide 25 mmol/L (22-30); Chloride 101 mmol/L (98-107); Cholesterol 125 mg/dL (0-200); Estimated Glomerular Filt Rate > 60; Glucose 78 mg/dL (65-110); HDL Direct 41 mg/dL; Potassium 4.1 mmol/L (3.4-5.0); Sodium 133 mmol/L (137-145); Total Protein 6.4 g/dL (6.3-8.2); Triglycerides 160 mg/dL (<150)
[2025-09-04 19:27] LABS: Parathyroid Intact 96.2 pg/mL (14.5-75.2)
[2025-09-04 19:44] LABS: Hematocrit 41.6 % (37.0-47.0); Hemoglobin 13.3 g/dL (12.0-15.0); Immature Granulocyte Percent A 0.3 % (0-0.5); Lymphocytes Absolute Auto 2.02 K/mm3 (0.9-3.2); Mean Corpuscular HGB Conc 32.0 g/dl (32-36); Mean Corpuscular Hemoglobin 30.9 pg (26-34); Mean Corpuscular Volume 96.5 fl (80-100); Nucleated Red Blood Cells Absolute Auto 0.000 K/mm3 (0.0-0.012); Nucleated Red Blood Cells Perc 0.0 % (0.0-0.2); Platelet Count Result 325 k/mm3 (150-375); Red Blood Count 4.31 M/mm3 (4.2-5.4); White Blood Count 5.9 K/mm3 (4.5-10.0)
[2025-09-04 19:52] LABS: Thyroid Stimulating Hormone 2.060 uIU/mL (0.465-4.680)
[2025-09-04 20:13] LABS: Vitamin B12 > 1000.0 pg/mL (239-931)
[2025-09-05 18:08] LABS: Calcium, Ionized 6.0 mg/dL (4.5-5.6)
== END 2025-09-04 08:25 | disposition home or self-care (01) ==
PROVIDERS: PCP Clinical Nurse Specialist; Visit Provider Nurse Practitioner
DX: R41.3 Other amnesia (principal); E55.9 Vitamin D deficiency, unspecified; I10 Essential (primary) hypertension
CPT/HCPCS: 36415; 80053; 80061; 82306; 82330; 82607; 83970; 84443; 85025

== ENCOUNTER 2025-10-02 09:33 | Outpatient (CLI) | payer MEDICARE, SELFPAY ==
--- NOTE | ~2025-10-02 | NM_ITS ---
EXAMINATION: NM parathyroid imaging w spect DATE: 10/02/2025 15:14 INDICATION: Hyperparathyroidism TECHNIQUE: 20.7 mCi Tc99m tetrofosmin (Myoview) was administered by intravenous route. Anterior images of the neck were obtained at 10 minutes and 2 hours. Additional delayed SPECT imaging was obtained and reconstructed in axial, sagittal and coronal planes. COMPARISON: None. FINDINGS/IMPRESSION: There is a focus of persistent uptake in the region of the posterior inferior left thyroid lobe suspicious for parathyroid adenoma. Reviewed, dictated and finalized at location A. RETE FORM SETTER
--- OUTSIDE RECORDS SUMMARY | 2025-10-02 10:15 | XMS_ITS | Data Portability ---
Author Organization [facility] Address [address] [place] [address] [place] [address] Care Team Providers Care Sheet Rock Hanger Name Role Phone ARASELIMOLLYANTIONETTE Primary Care Provider [...] Depression precautions given. FU WWE 1 year [email or web address] Not available 04/14/2022 15:12:35 04/18/2023 04/18/2023 healthy [...] with hyst. FU 1 year or prn [email or web address] Not available 04/20/2023 09:22:19 Plan of Treatment Reminders Order Date Submit Date Provider Last Modified By Organization Details Last Modified Time Details Appointments None recorded. Lab urinalysis, dipstick 2023 024 ED[facility], [address], [address], [place], [address], 4 11:54:43 Referral None recorded. Procedures None recorded. Surgeries None recorded. Imaging CT, abdomen + pelvis, w/ contrast 2023 024 [facility], [address], [place], [address], 4 12:06:02 Medication Orders estradiol 0.025 mg/24 hr weekly transdermal patch 2022 023 [id number], [address], [place], [place], [id number], 3 10:42:29 estradiol 0.025 mg/24 hr weekly transdermal patch 2021 022 [facility] #[id number], [address], [place], [id number], 3 14:32:36 Patient TargetsNo targets recorded. Patient [...] t Abnor mal: No Resul ting Lab: [facility] [address] [facility] [address] Tel: CULTU RE ----- ----- ----- --- No growt h in 1 day (dete ction level of 10,00 0 colon ies / ml.) Not Available [facility] (Lab) [address], [place], [address], 04/03/2024 07:23:45 06/16/20 22 06/16/2022 MAMMO , scree juany, bilat eral No observ ation record ed. [facility] [address], [place], [address], 07/06/2022 10:57:57 06/16/2006/16/2022 MAMMO , scree juany, bilat eral No observ ation record ed. [facility] [address], [place], [address], 07/06/2022 10:58:36 07/05/2006/16/2022 MAMMO , scree juany, bilat eral No observ ation record ed. [email or web address] [facility] [address], [place], [address], 06/04/2023 17:08:15 07/06/20 22 01/04/2018 MAMMO , scree juany, bilat eral No observ ation record ed. [email or web address] [address], [place], [address], 04/03/2023 17:28:17 07/18/20 22 06/16/2022 MAMMO , scree juany, bilat eral No observ ation record ed. [facility] [address], [place], [address], 07/19/2022 12:40:20 07/21/20 22 06/16/2022 MAMMO , scree juany, bilat eral No observ ation record ed. [facility] [address], [place], [address], 07/25/2022 10:40:56 07/24/20 22 06/16/2022 MAMMO , scree juany, bilat eral No observ ation record ed. [email or web address] [facility] [address], [place], [address], 07/24/2022 16:08:34 11/21/20 23 11/21/2023 MAMMO , scree juany, bilat eral No observ ation record ed. [address], [place], [address], 04/02/2024 13:06:29 04/07/20 24 04/07/2024 CT, abdom en + pelvi s, w/ contr ast No observ ation record ed. [email or web address] [facility] [address], [place], [address], 04/10/2024 11:12:47 Result Notes None recorded. Problems Name Problem SNOMED Code Status Onset Date Resolution Date Notes Provider Name and Address Organization Details Recorded Time Hormone replacement therapy Active 2022 Pamela Shah MD [address], [place], [address], [facility] 3 10:40:01 History of abdominal hysterectomy 309835093 Active 2022 Pamela Shah MD [address], [place], [address], [facility] 3 10:40:27 Problem Notes None recorded. Procedures Surgical History Date Name Laterality Status Provider Name and Address Organization Details Recorded Time 11/21/20 23 Date of Last Mammogram completed Nancy Aquino [facility] 04/01/2024 16:43:16 04/07/20 21 total replacement of hip completed Yoana [facility] 04/12/2022 15:13:18 11/26/19 19 Most Recent Bone Density completed Yoana [facility] 04/18/2023 14:39:40 11/26/18 99 total abdominal hysterectomy completed Yoana [facility] 04/12/2022 15:12:59 delivery completed [facility] 04/12/2022 15:13:27 excision of tumor of soft tissue of back completed [facility] 04/12/2022 15:13:43 Imaging Results [...] Updated DateTime 04/01/2024 147.32 cm 27.4 kg/m2 83555.6 g 122/84 mm[Hg] Nancy Aquino [facility] 04/01/2024 16:42:02 Date Recorded Body height Body mass index (BMI) Body weight Systolic And Diastolic Provider Name and Address Organization Details Last Updated DateTime 04/12/2022 147.32 cm 30.9 kg/m2 30684.67 g 137/88 mm[Hg] [facility] 04/12/2022 15:07:38 Date Recorded Body height Body mass index (BMI) Body weight Systolic And Diastolic Provider Name and Address Organization Details Last Updated DateTime 04/18/2023 147.32 cm 29.7 kg/m2 47644.12 g 128/82 mm[Hg] [facility] 04/18/2023 14:32:09 Social History Question Answer Notes LastModified by Organizat ion Details LastModified Time Tobacco Smoking Status Never Smoker Yoana Brewer [facility] 04/12/2022 15:11:46 Has Tobacco Cessation Counseling [...] Diagnosis SNOMED-CT Code Diagnosis ICD10 Code Diagnosis IMO Codes Diagnosis Note [id number] Pamela Shah MD [facility] [address] [address] 04/12/2022 14:52:21 04/14/2022 15:19:40 Menopausal flushing 406604470 N95.1 Major depr essive disorder 388975859 F32.9 Screening mammography 24 960094 Z12.31 [id number] Pamela Shah MD [facility] [address] [address] 04/18/2023 14:01:34 04/24/2023 16:34:49 Gynecologic examination 76013924 Z01.419 Hormone re placement therapy 201645823 Z79.890 History of abdominal hysterectomy 108584854 Z90.711 [id number] Savita Arevalo [facility] [address],[facility] [place] [address] 04/01/2024 16:14:46 04/02/2024 14:34:55 Pain in pelvis 42289718 R10.2 R10.[address] scan abdominal/ pelvisLike ly more issues 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 based on her 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 and subjective reports.Wi [...] [place] Member ID Guarantor Name 04/16/2023 1 [facility] (MEDICARE REPLACEMENT/A DVANTAGE - PPO) [id number] Bebe Bean [id number] Micki Bean 04/01/2024 1 [employer] (MEDICARE REPLACEMENT/A DVANTAGE - PPO) [id number] Bebe Bean [id number] Micki Bean Notes Date Note Type Note Provider Name and Address Organization Details Recorded Time 04/12/2022 text/html Leelee is a 72yo who just moved here from [place] and would like to continue her estrogen [...] 2019 Pamela Shah MD [address], [place], [address], [facility] 04/14/2022 15:16:33 04/18/2023 text/html Patient is a 73yo who presents for an annual exam. She [...] concerns- Pamela Shah MD [address], [place], [address], [facility] 04/20/2023 09:22:56 04/01/2024 text/html ROS as noted in the HPI Micki is a 74yo postmenopausal female here today for lower abdominal-pelvic [...] updated as reported in chart. Savita Arevalo, [place]- [address], [place], [address], [facility] 04/02/2024 13:12:18 OBGyn Episode Ob Episode Information Episode Created Date Number of Fetuses Patient Bloodtype Patient rh Status Prepregnancy Weight lbs Domestic Partner Domestic Partner Phone Father Name Correction Officer Head Status 04/12/20 22 1 CLOSED Fetus Data First Name Last Name Admitted to NICU Weight (g) Sex Living Outcome Pediatric Complications Fetus ID Race Codes Race Delivery Type 37959 Repeat Dae Calculation Initial Dae Date Initial [...] Domestic Partner Domestic Partner Phone Father Name Correction Officer Head Status 04/12/20 22 1 CLOSED Fetus Data First Name Last Name Admitted to NICU Weight (g) Sex Living Outcome Pediatric Complications Fetus ID Race Codes Race Delivery Type 08902 Repeat Dae Calculation Initial Dae Date Initial [...] Domestic Partner Domestic Partner Phone Father Name Correction Officer Head Status 04/12/20 22 1 CLOSED Fetus Data First Name Last Name Admitted to NICU Weight (g) Sex Living Outcome Pediatric Complications Fetus ID Race Codes Race Delivery Type 56468 Repeat Dae Calculation Initial Dae Date Initial [...] Domestic Partner Domestic Partner Phone Father Name Correction Officer Head Status 04/12/20 22 1 CLOSED Fetus Data First Name Last Name Admitted to NICU Weight (g) Sex Living Outcome Pediatric Complications Fetus ID Race Codes Race Delivery Type 05984 Vaginal Delivery Dae Calculation Initial Dae Date [...] Domestic Partner Domestic Partner Phone Father Name Correction Officer Head Status 04/12/20 22 1 CLOSED Fetus Data First Name Last Name Admitted to NICU Weight (g) Sex Living Outcome Pediatric Complications Fetus ID Race Codes Race Delivery Type 10203 Primary Dae Calculation Initial Dae Date Initial [...] Domestic Partner Domestic Partner Phone Father Name Correction Officer Head Status 04/12/20 22 1 CLOSED Fetus Data First Name Last Name Admitted to NICU Weight (g) Sex Living Outcome Pediatric Complications Fetus ID Race Codes Race Delivery Type 18002 Repeat Dae Calculation Initial Dae Date Initial [...]
--- OUTSIDE RECORDS SUMMARY | 2025-10-02 10:15 | XMS_ITS | Clinical Summary ---
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 Gender Identity Female 05/01/2022 3:02 PM CDT [...] Scan (General) 02/10/2017 COVID-19 Vaccine ( - 2024-2 6 season) 2025 Influenza Adult (#1) 2025 RSV Immunization or 60+ Years (1 - 1-dose 75+ series) 02/10/2027 Hepatitis A Vaccines Aged Out No long er eligible based on patient's age to complete this topic Meningococcal B Vaccine Aged Out No l onger eligible based on patient's age to complete this topic Meningococcal Vaccine Aged Out No nai laurie eligible based on patient's age to complete this topic RSV Immunizations Under 20 Months Aged Out No longer eligible based on patient's age to complete this topic
--- OUTSIDE RECORDS SUMMARY | 2025-10-02 10:15 | XMS_ITS | Patient Health Record ---
Author Organization [facility] Address [address] [place] [address] Care Team Providers Care Egg Separator Name Role Phone Carlin Booker Unavailable [phone] Reason For Referral No Information Plan Of Treatment No Information Insurance Providers Payer Name Payer Address Payer Phone Subscriber Number Group Number Insured Name Patient Relationship to Insured Coverage Start Date Coverage End Date [facility] [address] [place] [phone] [id number] ALKA OWENS Spouse - patient is the spouse of the insured
== END 2025-10-02 09:34 | disposition home or self-care (01) ==
PROVIDERS: PCP Clinical Nurse Specialist; Visit Provider Otolaryngology
DX: R94.6 Abnormal results of thyroid function studies (principal); E21.3 Hyperparathyroidism, unspecified; D35.1 Benign neoplasm of parathyroid gland
CPT/HCPCS: 78071; A9500

== ENCOUNTER 2025-10-13 08:40 | Outpatient (CLI) | payer MEDICARE, SELFPAY ==
--- NOTE | ~2025-10-13 | MM_ITS ---
EXAMINATION: MM screening [facility] BI w harry HISTORY: Screening TECHNIQUE: Craniocaudal and mediolateral oblique 3-D tomosynthesis images were obtained and synthetic 2-D images were generated. CAD analysis was submitted and interpreted. COMPARISON: Comparison to multiple prior studies sequentially, with oldest reviewed study dated 08/19/2019. BREAST PARENCHYMAL COMPOSITION: Not dense: There are scattered areas of fibroglandular density. FINDINGS: Stable benign-appearing low-density masses in the left breast. There is no evidence of suspicious mass, calcification, or architectural distortion to suggest malignancy in either breast. There has been no suspicious interval change. IMPRESSION: 1. No mammographic evidence of malignancy. 2. Recommend routine screening mammography in one year. BI-RADS Category 2: Benign finding(s). Reviewed, dictated and finalized at location O. F OPERATOR
== END 2025-10-13 08:41 | disposition home or self-care (01) ==
LOC: ANHFOHIMG 08:45
PROVIDERS: PCP Clinical Nurse Specialist
DX: Z12.31 Encounter for screening mammogram for malignant neoplasm of breast (principal)
CPT/HCPCS: 77063; 77067

== ENCOUNTER 2025-10-28 14:16 | Outpatient (CLI) | payer MEDICARE, SELFPAY ==
--- NOTE | ~2025-10-28 | DEXA_ITS ---
Bone Density Report Name: RAVEN OWENS Age: 75 Sex: Female Ethnicity: White Date of : 1950 Indication: hyperparathyroidism; height loss; prior fracture; hysterectomy; Referring Provider: ALESSANDRA MINOR Study: Bone densitometry was performed. Exam Date: October 28, 2025 Accession number: [id number] Bone Density: Region BMD T-score Z-score Classification AP Spine(L1-L4) 1.211 1.5 3.8 Normal World Health Organization criteria for BMD impression classify patients as: Normal (T-score at or above -1.0), Osteopenia (T-score between -1.0 and -2.5), or Osteoporosis (T-score at or below -2.5). Clinical Information Provided by Patient: Has had a low trauma fracture Has used the following medications: Fosamax (i.e. alendronate), HRT (i.e. estrogen/hormone therapy) Has the following medical conditions: Hyperparathyroidism, Hysterectomy Patient maximum height was 59 Menopause Age: 49 No regular weight bearing exercise Does not regularly consume dairy products Drinks caffeinated beverages Onset of menses at age 16 Number of children 6 Impression: The patient has normal bone mass. The patient has risk factors, including: previous fracture. Discussion: LOW RISK OF FRACTURE; BONE DENSITY IS WELL ABOVE THE MINIMUM DESIRABLE LEVEL AND ABOVE AVERAGE FOR AGE AND SEX AT ALL SKELETAL SITES TESTED. This person's bone density is above expected limits for age and sex. This is rarely clinically significant, but should be pursued if there are significant musculoskeletal complaints. The patient should follow a healthful lifestyle (good nutrition with adequate calcium and vitamin D, and appropriate weight-bearing exercise). Follow-Up: Consider repeating this study in 5 years or sooner if there is some new clinical indication. Reported by: SHAYNE on 10/28/2025 2:51:00 PM. Reviewed, dictated and finalized at location A.
--- OUTSIDE RECORDS SUMMARY | 2025-10-28 15:33 | XMS_ITS | Clinical Summary ---
Author Organization [facility] Address [facility] [place] [address] Care Team Providers Care Director River Restoration Name Role Phone Bell Amador NP Primary Care Provider [phone] Laura Evans MD Unavailable Allergies Active Allergy Reactions Criticality Noted Date [...] 07/24/2022, 07/21/2022, Additional history exists Covid-19 Vaccine (5 - 2024-2 6 season) 2025 04/26/2022, 08/21/2021, 01/25/2021, Additional history exists Influenza Vaccine (#1) 2025 , 10/09/2022, 09/05/2021, Additional history exists Fall Risk Assessment 02/06/2026 02/06/2025 Well Visit 65+ 07/07/2026 07/07/2025 Zoster Vaccine Completed 05/28/2019, 01/2019, 03/25/2012 Medical Devices Implanted Type Area Veterinary Attendant Device Identifier Shelf Expiration Date Model / Serial / Lot [employer]ito Hip Replacements Bilateral : Hip Insurance [employer] MEDICARE AETNA MEDICARE A[employer] MEDICARE Advance Directives For more information, please contact: [phone] * Full Code (Latest Code Status on File) Date Activated Date Inactivated Comments 02/06/2025 9:31 AM 02/06/2025 3:29 PM Care Teams Director River Restoration Relationship Specialty Start Date End Date Bell Amador NP [address] [place] [address] PCP - General Internal Medicine 01/27/25 Laura Evans MD [address] [facility] [address] [place] [address] Consulting Physician Obstetrics and Gynecology 07/07/25
--- OUTSIDE RECORDS SUMMARY | 2025-10-28 15:33 | XMS_ITS | Data Portability ---
Author Organization [facility] Address [address] [place] [address] Care Team Providers Care People Manager Name Role Phone ARASELIMOLLYANTIONETTE Primary Care Provider [phone] Assessment Encounter Date Assessment Date Assessment LastModified [...] Depression precautions given. FU WWE 1 year [email or web address] Not available 04/14/2022 15:12:35 04/18/2023 04/18/2023 healthy [...] with hyst. FU 1 year or prn [email or web address] Not available 04/20/2023 09:22:19 Plan of Treatment Reminders Order Date Submit Date Provider Last Modified By Organization Details Last Modified Time Details Appointments None recorded. Lab urinalysis, dipstick 2023 024 [facility] [place], [address], [place], [address], 4 11:54:43 Referral None recorded. Procedures None recorded. Surgeries None recorded. Imaging CT, abdomen + pelvis, w/ contrast 2023 024 [facility], [address], [place], [address], 4 12:06:02 Medication Orders estradiol 0.025 mg/24 hr weekly transdermal patch 2022 023 [id number], [address], [place], [place], [id number], 3 10:42:29 estradiol 0.025 mg/24 hr weekly transdermal patch 2021 022 [facility][id number], [address], [place], [id number], 3 14:32:36 Patient TargetsNo targets recorded. Patient [...] t Abnor mal: No Resul ting Lab: [facility] [address] [facility] [address] Tel: CULTU RE ----- ----- ----- --- No growt h in 1 day (dete ction level of 10,00 0 colon ies / ml.) Not Available [facility] (Lab) [address] [facility] [facility], [place], [address], 04/03/2024 07:23:45 06/16/20 22 06/16/2022 MAMMO , scree juany, bilat eral No observ ation record ed. [facility] [address], [place], [address], 07/06/2022 10:57:57 06/16/2006/16/2022 MAMMO , scree juany, bilat eral No observ ation record ed. [facility] [address], [place], [address], 07/06/2022 10:58:36 07/05/2006/16/2022 MAMMO , scree juany, bilat eral No observ ation record ed. [email or web address] [facility] [address], [place], [address], 06/04/2023 17:08:15 07/06/20 22 01/04/2018 MAMMO , scree juany, bilat eral No observ ation record ed. [email or web address] [address], [place], [address], 04/03/2023 17:28:17 07/18/20 22 06/16/2022 MAMMO , scree juany, bilat eral No observ ation record ed. [facility] [address], [place], [address], 07/19/2022 12:40:20 07/21/20 22 06/16/2022 MAMMO , scree juany, bilat eral No observ ation record ed. [facility] [address], [place], [address], 07/25/2022 10:40:56 07/24/20 22 06/16/2022 MAMMO , scree juany, bilat eral No observ ation record ed. [email or web address] [facility] [address], [place], [address], 07/24/2022 16:08:34 11/21/20 23 11/21/2023 MAMMO , scree juany, bilat eral No observ ation record ed. [address], [place], [address], 04/02/2024 13:06:29 04/07/20 24 04/07/2024 CT, abdom en + pelvi s, w/ contr ast No observ ation record ed. [email or web address] [facility] [address], [place], [address], 04/10/2024 11:12:47 Result Notes None recorded. Problems Name Problem SNOMED Code Status Onset Date Resolution Date Notes Provider Name and Address Organization Details Recorded Time Hormone replacement therapy Active 2022 Pamela Shah MD [address], [place], [address], [facility] 3 10:40:01 History of abdominal hysterectomy 734872932 Active 2022 Pamela Shah MD [address], [place], [address], [facility] 3 10:40:27 Problem Notes None recorded. Procedures Surgical History Date Name Laterality Status Provider Name and Address Organization Details Recorded Time 11/21/20 23 Date of Last Mammogram completed Nancy Aquino [facility] 04/01/2024 16:43:16 04/07/20 21 total replacement of hip completed Yoana Guthrie [facility] 04/12/2022 15:13:18 11/26/19 19 Most Recent Bone Density completed Yoana Guthrie [facility] 04/18/2023 14:39:40 11/26/18 99 total abdominal hysterectomy completed Yoana Guthrie [facility] 04/12/2022 15:12:59 delivery completed [facility] 04/12/2022 15:13:27 excision of tumor of soft tissue of back completed [facility] 04/12/2022 15:13:43 Imaging Results None recorded. [...] Updated DateTime 04/01/2024 147.32 cm 27.4 kg/m2 40855.6 g 122/84 mm[Hg] Nancy Aquino [facility] 04/01/2024 16:42:02 Date Recorded Body height Body mass index (BMI) Body weight Systolic And Diastolic Provider Name and Address Organization Details Last Updated DateTime 04/12/2022 147.32 cm 30.9 kg/m2 76657.67 g 137/88 mm[Hg] [facility] 04/12/2022 15:07:38 Date Recorded Body height Body mass index (BMI) Body weight Systolic And Diastolic Provider Name and Address Organization Details Last Updated DateTime 04/18/2023 147.32 cm 29.7 kg/m2 33547.12 g 128/82 mm[Hg] [facility] 04/18/2023 14:32:09 Social History Question Answer Notes LastModified by Organizat ion Details LastModified Time Tobacco Smoking Status Never Smoker Yoana Brewer [facility] 04/12/2022 15:11:46 Has Tobacco Cessation Counseling [...] (Food, seasonal, environmental ) N Other N Drug/Latex Allergies/Reactions N Breast Cancer N Blood Transfusion N Dermatologic Disorders N Lung Disease N Defects or Inherited Disease N Breast Problem N Gestational Diabetes N Hematologic disorders N Anesthesia Complications N History of STI N Deep Vein Thrombosis N Polycystic ovary syndrome N Anxiety Disorder N Autoimmune disease N Arthritis N Polyps N Infertility N Acid Reflux (GERD) N History of abnormal pap N Cancer N Varicosities N Stroke N Neurologic/Epilepsy N Endometriosis N High Cholesterol N Fibromyalgia N Headaches N Kidney Disease N Heart Problems N Thyroid Problems N Kidney or Bladder Problems N GI Problems N Eating Disorder [...] ICD10 Code Diagnosis IMO Codes Diagnosis Note [id number] Pamela Shah MD [place] [address] [address] 04/12/2022 14:52:21 04/14/2022 15:19:40 Menopausal flushing 967762328 N95.1 Major depr essive disorder 287182718 F32.9 Screening mammography 24 485433 Z12.31 [id number] Pamela Shah MD [place] [address] [address] 04/18/2023 14:01:34 04/24/2023 16:34:49 Gynecologic examination 42631595 Z01.419 Hormone re placement therapy 498850514 Z79.890 History of abdominal hysterectomy 936436881 Z90.711 [id number] Savita Arevalo [facility] [address],[place] [address] 04/01/2024 16:14:46 04/02/2024 14:34:55 Pain in pelvis 04078443 R10.2 R10.[address] scan abdominal/ pelvisLike ly more issues GI than [place] [facility]GE based on her history and subjective [...] [place] Member ID Guarantor Name 04/16/2023 1 [facility] (MEDICARE REPLACEMENT/A DVANTAGE - PPO) [id number] Bebe Bean [id number] Micki Bean 04/01/2024 1 [employer] (MEDICARE REPLACEMENT/A DVANTAGE - PPO) [id number] Bebe Bean [id number] Micki Bean Notes Date Note Type Note Provider Name and Address Organization Details Recorded Time 04/12/2022 text/html Leelee is a 72yo who just moved here from [place] and would like to continue her estrogen [...] 2019 Pamela Shah MD [address], [place], [address], [facility] 04/14/2022 15:16:33 04/18/2023 text/html Patient is [...] concerns- Pamela Shah MD [address], [place], [address], [facility] 04/20/2023 09:22:56 04/01/2024 text/html ROS as [...] chart. Savita Arevalo, [place]- [address], [place], [address], [facility] 04/02/2024 13:12:18 OBGyn Episode Ob Episode Information Episode Created Date Number of Fetuses Patient Bloodtype Patient rh Status Prepregnancy Weight lbs Domestic Partner Domestic Partner Phone Father Name Outside Solar Sales Consultant Status 04/12/20 22 1 CLOSED Fetus Data First Name Last Name Admitted to NICU Weight (g) Sex Living Outcome Pediatric Complications Fetus ID Race Codes Race Delivery Type 79123 Repeat Dae Calculation Initial Dae Date Initial [...] Domestic Partner Domestic Partner Phone Father Name Outside Solar Sales Consultant Status 04/12/20 22 1 CLOSED Fetus Data First Name Last Name Admitted to NICU Weight (g) Sex Living Outcome Pediatric Complications Fetus ID Race Codes Race Delivery Type 41260 Repeat Dae Calculation Initial Dae Date Initial [...] Domestic Partner Domestic Partner Phone Father Name Outside Solar Sales Consultant Status 04/12/20 22 1 CLOSED Fetus Data First Name Last Name Admitted to NICU Weight (g) Sex Living Outcome Pediatric Complications Fetus ID Race Codes Race Delivery Type 59991 Repeat Dae Calculation Initial Dae Date Initial [...] Domestic Partner Domestic Partner Phone Father Name Outside Solar Sales Consultant Status 04/12/20 22 1 CLOSED Fetus Data First Name Last Name Admitted to NICU Weight (g) Sex Living Outcome Pediatric Complications Fetus ID Race Codes Race Delivery Type 79950 Vaginal Delivery Dae Calculation Initial Dae Date [...] Domestic Partner Domestic Partner Phone Father Name Outside Solar Sales Consultant Status 04/12/20 22 1 CLOSED Fetus Data First Name Last Name Admitted to NICU Weight (g) Sex Living Outcome Pediatric Complications Fetus ID Race Codes Race Delivery Type 92332 Primary Dae Calculation Initial Dae Date Initial [...] Domestic Partner Domestic Partner Phone Father Name Outside Solar Sales Consultant Status 04/12/20 22 1 CLOSED Fetus Data First Name Last Name Admitted to NICU Weight (g) Sex Living Outcome Pediatric Complications Fetus ID Race Codes Race Delivery Type 84743 Repeat Dae Calculation Initial Dae Date Initial [...]
--- OUTSIDE RECORDS SUMMARY | 2025-10-28 15:33 | XMS_ITS | Clinical Summary ---
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
== END 2025-10-28 14:17 | disposition home or self-care (01) ==
LOC: ANHFOHIMG 14:17
PROVIDERS: PCP Clinical Nurse Specialist; Visit Provider Nurse Practitioner
DX: Z78.0 Asymptomatic menopausal state (principal)
CPT/HCPCS: 77080